=== PATIENT | female | born 1945 | race Caucasian/White ===

== ENCOUNTER → 2016-10-24 | Outpatient (CLI) | payer MEDICARE, BC ==
--- NOTE | 2016-10-25 10:21 | MM ---
Reason for exam: screening (asymptomatic). Last mammogram was performed 1 year and 8 months ago. History: Patient is postmenopausal and has history of breast cancer at age 59. Benign left mammotome panel of the left breast, April 03, 2011. Benign cyst aspiration of the left breast, February 2009. Mastectomy of the right breast, February 23, 2005. Benign left US cyst aspiration of the left breast, January 30, 2005. Excisional biopsy of the left breast, 1989. Took estrogen beginning at age 39. Physical Findings: A clinical breast exam by your physician is recommended on an annual basis and results should be correlated with mammographic findings. MG Screen [place] Unilateral W/Cad Bilateral CC and MLO view(s) were taken. Prior study comparison: October 29, 2012, left diagnostic mammogram w/CAD. The breast tissue is heterogeneously dense. This may lower the sensitivity of mammography. Previous mammotome biopsy within the left breast. Benign left axillary lymph nodes. There is no discrete abnormality. ASSESSMENT: Benign, BI-RAD 2 RECOMMENDATION: Follow-up diagnostic mammogram of the left breast in 1 year.
== END | disposition home or self-care (01) ==
LOC: RADMAMWWP 08:27
PROVIDERS: ATTEND Internal Medicine Geriatric Medicine
DX: Z12.31 Encounter for screening mammogram for malignant neoplasm of breast (principal)

== ENCOUNTER → 2016-12-27 | Outpatient (CLI) | payer MEDICARE, BC ==
--- NOTE | 2016-12-28 12:51 | CONS ---
DATE OF SERVICE: 12/27/2016 A 71-year-old lady who has been re-evaluated in the [facility] for obstructive sleep apnea and central sleep apnea-hypopnea syndrome. HISTORY OF PRESENT ILLNESS/SLEEP WAKE EVALUATION: Patient has history of obstructive sleep apnea for more than 10-years. Last titration done in 2007. At that time recommended pressure was 7 cm of water. So at that time patient continued to use equipment until now. Recently developed some problems related to dryness in the mouth while using her machine. She never had been followed up since starting treatment on CPAP in 2007, so I do not have information from her machine; however, her respiration was controlled. SLEEP SCHEDULE: Presently her sleep schedule is from around 10:30 p.m. until 7: 30 a.m. FALLING ASLEEP: She does have problem with falling asleep, sometimes taking temazepam at bedtime. No TV in bedroom. DURING SLEEP: She wakes up from sleep two times with nocturia. She wakes up with dry mouth, heartburn, restless leg symptoms. DURING THE DAY/WAKE STATE: In the morning she wakes up tired. [place] sleepiness scale is 2. PAST MEDICAL HISTORY: Positive for hyperlipidemia, depression. Right side breast CA status post mastectomy in 2004. Hyperlipidemia, status post left knee arthroscopic surgery, status post UPPP and tonsillectomy in 1998. MEDICATIONS: Simvastatin, Sertraline, temazepam, Gemfibrozil. SOCIAL HISTORY: Negative for smoking or using alcohol at the present time. FAMILY HISTORY: Heart problems, hyperlipidemia, snoring. REVIEW OF SYSTEMS: Awakenings from sleep. No fevers No double vision. No recent chest pain. No shortness of breath. No abdominal pain. No bleeding episodes. No blood in urine. No seizure episodes. PHYSICAL EXAMINATION: General: A lady without distress. VITAL SIGNS: BP 129/57, HR 84, RR 16, height 5 foot 1-1/2, weight 148, body mass index 27.7. Neck 14-1/4 inches in circumference. Temperature 98.0, oxygen saturation at room air 95%. HEENT: PERRLA, EOMI. Evaluation of oropharynx showed status post UPPP, short distance between soft palate and pharyngeal wall. NECK: Supple. No JVD. Thyroid is not palpable. LUNGS: Clear to percussion and to auscultation. Good air exchange. No wheezing or rhonchi. HEART: S1, S2 regular. No murmurs, gallops or rubs. ABDOMEN: Soft and nontender. Bowel sounds are present. No organomegaly appreciated. EXTREMITIES: No cyanosis or clubbing. DEPUTY CLERK OF SUPERIOR COURT: Awake, alert and oriented x3. Cranial nerves II through VII intact. There is no fasciculation or atrophy noted. No focal deficits observed. IMPRESSION: 1. Obstructive sleep apnea-hypopnea syndrome for many years. Last titration 8- years ago. Recently developed some problem with machine dryness in the mouth and awakening from sleep. 2. Hyperlipidemia. 3. Depression. 4. Difficulties to initiate sleep. PLAN: 1. I reviewed results of previous sleep study. It showed significant amount of central apneas 73 out of 88 total events. In that situation I would recommend to repeat CPAP titration. 2. Patient needs to get new CPAP equipment. 3. Sleep hygiene with regular time in bed for at least 8 hours. 4. No driving if feeling any sleepiness. Thank you very much for allowing me to participate in the management of your patient. Sincerely, Isidra Dejesus MD, PhD, FAASM Diplomat of [place] [employer], Sleep Medicine Board by [place] [employer] [place] [employer] Clerical Adviser of [facility]
== END | disposition home or self-care (01) ==
LOC: SLEEP 16:38
PROVIDERS: ATTEND Internal Medicine
DX: G47.33 Obstructive sleep apnea (adult) (pediatric) (principal); E78.5 Hyperlipidemia, unspecified; F32.9 Major depressive disorder, single episode, unspecified; Z79.899 Other long term (current) drug therapy
CPT/HCPCS: 99211

== ENCOUNTER → 2017-04-17 | Outpatient (CLI) | payer MEDICARE, BC ==
--- NOTE | 2017-04-17 16:15 | PN ---
PROGRESS NOTE DATE OF SERVICE: 04/17/2017 71-year-old lady who has been followed in Sleep Center for treatment of obstructive sleep apnea hypopnea syndrome. The patient continued to use her CPAP equipment but has significant leak from her mask. She recently received her new machine. I checked her CPAP unit. CPAP pressure is 7.6, usage is 23/30 nights for more than 4 hours. Average usage is 8.7 hours. Apnea-hypopnea index reading from the machine is 10.5. Refitted patient with a chinstrap. [place] Sleepiness Scale is 2. PHYSICAL EXAM: Patient in no distress. BP 139/74, HR 63, RR 14, weight 146.4, temperature 97.3, oxygen saturation room air 95%, oropharynx status post UPPP. No uvula. Neck Supple, no JVD. Thyroid is not palpable. LUNGS Clear to percussion and to auscultation. Good air exchange. No wheezing or rhonchi. HEART S1, S2 regular. No murmurs, gallops, or rubs. ABDOMEN Soft and nontender. Bowel sounds are present. No organomegaly appreciated. EXTREMITIES No clubbing or cyanosis. WOMEN'S STUDIES LECTURER Awake, alert, and oriented X3. Cranial nerves 2 to 7 intact. There is no fasciculation or atrophy. noted. No focal deficits observed. IMPRESSION: 1. Obstructive sleep apnea-hypopnea syndrome. Patient demonstrated good compliance with treatment benefitting from treatment. 2. Significant leak from the mask. 3. Depression. 4. Hyperlipidemia. 5. History of insomnia. PLAN: 1. Continue usage of CPAP equipment every night for the whole night. 2. Prescription for chin strap. 3. Sleep hygiene with regular time in bed for at least 8 hours. 4. No driving if feeling sleepiness. Thank you very much for allowing me to participate in management of your patient. Sincerely. Smith Dejesus MD, PhD, FAASM Diplomat of [place] [employer] [place] [employer] Statistical Programmer Analyst of [facility] [place] MMODL / CASTRON: [id number] /
== END | disposition home or self-care (01) ==
LOC: SLEEP 13:04
PROVIDERS: ATTEND Internal Medicine
DX: G47.33 Obstructive sleep apnea (adult) (pediatric) (principal); F32.9 Major depressive disorder, single episode, unspecified; E78.5 Hyperlipidemia, unspecified

== ENCOUNTER → 2017-08-08 | Outpatient (CLI) | payer MEDICARE, BC ==
--- NOTE | 2017-08-08 11:28 | SFUN ---
SLEEP STUDY FOLLOW UP NOTE DATE OF SERVICE: 08/08/2017. A 72-year-old lady has been followed in sleep center for treatment of central and obstructive sleep apnea-hypopnea syndrome. Patient continued to use her CPAP equipment, likes her mask at the present time and sleeps quite well. I checked her CPAP equipment. CPAP pressure 7.6 cm of water usage for more than 4 hours 17/ nights. Significant leak 73 L/minute. Apnea-hypopnea index 9.3 minutes with central events 2.4. [place] Sleepiness Scale is 1. MEDICATIONS: Medications the same, simvastatin, sertraline, temazepam, gemfibrozil, vitamins. PHYSICAL EXAM: During physical exam, patient in no distress. VITAL SIGNS: BP 139/63, HR 79, RR 18, height 5 feet 1-3/4 inches, weight 149.0, this is 3 pounds more than during the previous visit. Temperature 97.9. Oxygen saturation room air 98%. HEENT: PERRLA, EOMI. Oropharynx status post UPPP. No uvula. NECK: Supple, no JVD. Thyroid is not palpable. LUNGS: Clear to percussion and to auscultation. Good air exchange. No wheezing or rhonchi. HEART: S1, S2 regular. No murmurs, gallops, or rubs. ABDOMEN: Soft and nontender. Bowel sounds are present. No organomegaly appreciated. EXTREMITIES: No clubbing or cyanosis. CHIEF WELLNESS OFFICER: Awake, alert, and oriented X3. Cranial nerves 2 to 7 intact. There is no fasciculation or atrophy. noted. No focal deficits observed. IMPRESSION: 1. Obstructive sleep apnea-hypopnea syndrome. Patient continued to use CPAP equipment. Significant leak from the mask. Otherwise, patient benefitting from treatment. 2. Depression. 3. Hyperlipidemia. 4. History of insomnia. PLAN: 1. The patient will continue to use CPAP equipment with the same mask and chinstrap. 2. We will try to treat the patient with a different style of mask, possibly nasal pillows. 3. Sleep hygiene with regular time in bed for at least 8 hours. 4. No driving if feeling any sleepiness. Thank you very much for allowing me to participate in management of your patient. Sincerely, Smith Dejesus MD, PhD, FAASM Diplomat of [place] [employer] [place] [employer] Assistant Fitness Manager of [facility] [place] [email or web address] / NATY: [id number] /
== END | disposition home or self-care (01) ==
LOC: SLEEP 10:14
PROVIDERS: ATTEND Internal Medicine
DX: G47.33 Obstructive sleep apnea (adult) (pediatric) (principal); F32.9 Major depressive disorder, single episode, unspecified; E78.5 Hyperlipidemia, unspecified; Z87.09 Personal history of other diseases of the respiratory system; Z79.899 Other long term (current) drug therapy; Z99.89 Dependence on other enabling machines and devices

== ENCOUNTER 2017-10-18 16:40 | Emergency (ER) | payer MEDICARE, BC ==
[2017-10-18 16:45] VITALS: PULSE 56
[2017-10-18] MEDS ORDERED: HYDROcodone/APAP 5-325MG 1 EACH TAB PO STA (17:09)
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
--- NOTE | 2017-10-18 17:44 | XR ---
EXAMINATION TYPE: XR chest 2V DATE OF EXAM: 10/18/2017 COMPARISON: Chest x-ray May 12, 2016 HISTORY: Right-sided chest pain today after lifting injury. TECHNIQUE: Frontal and lateral views of the chest are obtained. FINDINGS: There is some chronic parenchymal change without suspicious new focal air space opacity, p leural effusion, or pneumothorax seen. The cardiac silhouette size is upper limits of normal with ec tatic thoracic aorta. Retrocardiac opacity consistent with large hiatal hernia or intrathoracic stom ach is redemonstrated with air-fluid level . The osseous structures are demineralized. IMPRESSION: Chronic changes without acute pulmonary process.
[2017-10-18 18:14] VITALS: BP 120/53; RESP 18; TEMP 98.5
== END 2017-10-18 18:12 | disposition home or self-care (01) ==
LOC: EC 16:40
DX: S29.9XXA Unspecified injury of thorax, initial encounter (principal); E78.5 Hyperlipidemia, unspecified; E07.9 Disorder of thyroid, unspecified; F41.9 Anxiety disorder, unspecified; Z87.891 Personal history of nicotine dependence; Z79.51 Long term (current) use of inhaled steroids; Z79.899 Other long term (current) drug therapy; Z91.040 Latex allergy status; Z85.3 Personal history of malignant neoplasm of breast; Z90.11 Acquired absence of right breast and nipple; Z87.19 Personal history of other diseases of the digestive system; Z87.09 Personal history of other diseases of the respiratory system; Z82.49 Family history of ischemic heart disease and other diseases of the circulatory system; X50.0XXA Overexertion from strenuous movement or load, initial encounter; Y93.89 Activity, other specified; Y92.89 Other specified places as the place of occurrence of the external cause
CPT/HCPCS: 71046; 99284

== ENCOUNTER 2018-07-13 18:50 | Observation (INO) | payer MEDICARE, BC ==
[2018-07-13] MEDS ORDERED: ASPIRIN 81 MG PO STA (19:09)
--- NOTE | 2018-07-13 19:29 | XR ---
EXAMINATION TYPE: XR chest 2V DATE OF EXAM: 07/13/2018 COMPARISON: 10/18/2017 INDICATION: Chest pain TECHNIQUE: Frontal and lateral views of the chest are obtained. FINDINGS: The heart size is normal. The pulmonary vasculature is normal. The lungs are clear. There is a large hiatal hernia with an air-fluid level present previously. IMPRESSION: 1. No acute pulmonary process. 2. Large hiatal hernia.
[2018-07-13 19:30] LABS: Basophils % (A) 0 %; Eosinophils # (A) 0.3 k/uL (0-0.7); Eosinophils % (A) 3 %; HCT 42.5 % (34.0-46.0); HGB 13.8 gm/dL (11.4-16.0); Lymphocytes # (A) 1.4 k/uL (1.0-4.8); Lymphocytes % (A) 17 %; MCH 29.1 pg (25.0-35.0); MCHC 32.6 g/dL (31.0-37.0); MCV 89.5 fL (80.0-100.0); Mean Platelet Volume 7.8; Monocytes # (A) 0.4 k/uL (0-1.0); Monocytes % (A) 5 %; Neutrophils % (A) 72 %; Platelet Count 284 k/uL (150-450); RBC 4.75 m/uL (3.80-5.40); RDW 12.8 % (11.5-15.5); WBC 8.3 k/uL (3.8-10.6)
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
[2018-07-13 19:41] LABS: Amylase 83 U/L (30-110); Lipase 409 U/L (23-300)
[2018-07-13 19:43] LABS: ALT 28 U/L (9-52); AST 25 U/L (14-36); Albumin 4.4 g/dL (3.5-5.0); Alkaline Phosphatase 137 U/L (38-126); Anion Gap 13 mmol/L; Blood Urea Nitrogen 27 mg/dL (7-17); Calcium 10.5 mg/dL (8.4-10.2); Carbon Dioxide 24 mmol/L (22-30); Chloride 109 mmol/L (98-107); Glucose 149 mg/dL (74-99); Magnesium 1.9 mg/dL (1.6-2.3); Potassium 4.2 mmol/L (3.5-5.1); Sodium 146 mmol/L (137-145); Total Bilirubin 0.6 mg/dL (0.2-1.3); Total Protein 7.6 g/dL (6.3-8.2)
[2018-07-13 19:47] LABS: INR 0.9 (<1.2); Prothrombin Time 9.5 sec (9.0-12.0)
[2018-07-13 19:55] LABS: Partial Thromboplastin Time 21.6 sec (22.0-30.0)
[2018-07-13] MEDS ORDERED: MORPHINE SULFATE 4 MG/ML SYRINGE IV PRN (20:37)
[2018-07-13] MEDS ORDERED: NALOXONE 0.4 MG/ML 1 ML VIAL IV PRN (20:37)
[2018-07-13] MEDS ORDERED: ONDANSETRON 4 MG/2 ML VIAL IVP PRN (20:37)
[2018-07-13 22:05] VITALS: BMI 24.9
[2018-07-13] MEDS ORDERED: TEMAZEPAM 15 MG CAP PO PRN (23:54)
[2018-07-13] MEDS ORDERED: MAG HYDROX/AL HYDROX/SIMETH 30 ML CUP PO PRN (23:55)
[2018-07-14 00:45] VITALS: RESP 18
[2018-07-14] MEDS ORDERED: REGADENOSON 0.4 MG/5 ML SYRINGE IV ONE (09:12)
[2018-07-14] MEDS ORDERED: CAFFEINE CITRATE 60 MG/3 ML VIAL IV PRN (09:12)
[2018-07-14 11:25] LABS: Cholesterol 155 mg/dL (<200); HDL Cholesterol 44 mg/dL (40-60); LDL Cholesterol,Calculated 91 mg/dL (0-99); Triglycerides 101 mg/dL (<150)
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
[2018-07-14] MEDS ORDERED: SERTRALINE 100 MG TAB PO SCH ×2 (12:00)
[2018-07-14] MEDS ORDERED: METHIMAZOLE 5 MG TAB PO SCH (12:00)
[2018-07-14] MEDS ORDERED: HYDROCHLOROTHIAZIDE 25 MG TAB PO SCH (12:15)
--- NOTE | 2018-07-14 12:43 | ECHOF ---
Referral Reason:cp MEASUREMENTS -------- HEIGHT: 165.1 cm WEIGHT: 68.0 kg BP: IVSd: 1.4 cm (0.6 - 1.1) LVIDd: 5.0 cm (3.9 - 5.3) LVPWd: 1.1 cm (0.6 - 1.1) IVSs: 1.5 cm LVIDs: 3.9 cm LVPWs: 1.6 cm LAESV Index (A-L): 26.13 ml/m Ao Diam: 3.4 cm (2.0 - 3.7) MV EXCURSION: 15.119 mm (> 18.000) MV EF SLOPE: 40 mm/s (70 - 150) EPSS: 1.7 cm MV E Sotero: 0.93 m/s MV DecT: 236 ms MV A Sotero: 0.33 m/s MV E/A Ratio: 2.77 AR PHT: 507 ms FINDINGS -------- Undetermined rhythm. This was a techncally difficult study with suboptimal views, , Lumason utilized for enhancement of im ages. The left ventricular size is normal. There is mild concentric left ventricular hypertrophy. Overa ll left ventricular systolic function is mild-moderately impaired with, an EF between 40 - 45 %. The right ventricle is normal in size. The left atrial size is normal. The right atrial size is normal. 5.0mg OF Lumason UTLIZED: 2 OR MORE WALL SEGMENTS NOT VISUALIZED. There is mild aortic regurgitation. Mild mitral annular calcification present. Mild mitral regurgitation is present. No regurgitation noted There is no evidence of pulmonary hypertension. Unable to estimate RVSP du e to inadequate TR jet spectral doppler profile. The pulmonic valve was not well visualized. The aortic root size is normal. There is no pericardial effusion. CONCLUSIONS -------- 1. This was a techncally difficult study with suboptimal views, , Lumason utilized for enhancement of images. 2. The left ventricular size is normal. 3. There is mild concentric left ventricular hypertrophy. 4. Overall left ventricular systolic function is mild-moderately impaired with, an EF between 40 - 45 %. 5. The right ventricle is normal in size. 6. The left atrial size is normal. 7. The right atrial size is normal. 8. 5.0mg OF Lumason UTLIZED: 2 OR MORE WALL SEGMENTS NOT VISUALIZED. 9. There is mild aortic regurgitation. 10. Mild mitral annular calcification present. 11. Mild mitral regurgitation is present. 12. No regurgitation noted 13. There is no evidence of pulmonary hypertension. 14. Unable to estimate RVSP due to inadequate TR jet spectral doppler profile. 15. The pulmonic valve was not well visualized. 16. The aortic root size is normal. 17. There is no pericardial effusion. WATER OPERATOR: Lexii Christopher RDCS
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
[2018-07-14 13:07] VITALS: TEMP 97.7
[2018-07-14 13:19] LABS: ALT 29 U/L (9-52); AST 21 U/L (14-36); Albumin 3.4 g/dL (3.5-5.0); Alkaline Phosphatase 98 U/L (38-126); Amylase 53 U/L (30-110); Anion Gap 10 mmol/L; Blood Urea Nitrogen 23 mg/dL (7-17); Calcium 9.4 mg/dL (8.4-10.2); Carbon Dioxide 22 mmol/L (22-30); Chloride 112 mmol/L (98-107); Glucose 107 mg/dL (74-99); Lipase 188 U/L (23-300); Potassium 4.2 mmol/L (3.5-5.1); Sodium 144 mmol/L (137-145); Total Bilirubin 0.4 mg/dL (0.2-1.3); Total Protein 6.2 g/dL (6.3-8.2)
--- NOTE | 2018-07-14 13:33 | EST ---
EXERCISE STRESS DATE OF SERVICE: 07/14/2018 AGE: 73 SEX: Female HT: 5'5" WT: 150 pounds PROTOCOL: Lexiscan Cardiolite STAGE: DURATION OF EXERCISE: HEART RATE REST: 59 BLOOD PRESSURE REST: 116/67 MAXIMUM HEART RATE ACHIEVED: 84 MAXIMUM BLOOD PRESSURE: 126/65 85% MPHR: 100% MPHR: METS: INDICATIONS: Chest pain. CLINICAL INFORMATION: STRESS DATA: Pretesting physical examination showed a heart rate of 59, pressure is 116/67 mmHg. Baseline EKG showed sinus mechanism. The 0.4 mg of Lexiscan given over 15 seconds per protocol. Max heart rate was 84 beats per minute and maximum pressure was 126/65 mmHg. Clinically the patient did not have any symptoms and the EKG did not show any significant ST or T wave abnormalities concerning for ischemia. CONCLUSION: 1. Nondiagnostic electrocardiogram stress testing in response to Lexiscan. 2. Please follow up on the Cardiolite portion on separate report. MMODL / IJN: [id number] /
--- NOTE | 2018-07-14 14:22 | NM ---
EXAMINATION TYPE: NM stress lexiscan cardiolite DATE OF EXAM: 07/14/2018 COMPARISON: NONE HISTORY: Chest pain TECHNIQUE: After the intravenous administration of 10.05 mCi Tc 99m Sestamibi - Cardiolite resting S PECT images acquired 45 minutes post injection. The patient received 0.4mg Lexiscan, 25.7 mCi Tc 99m Sestamibi - Stress images obtained [address] injection FINDINGS: Review of stress and rest SPECT images demonstrates no distinct perfusion abnormality. Gated analysi s shows normal wall motion with an estimated left ventricular ejection fraction of 40 %. IMPRESSION: No scintigraphic evidence for reversible ischemia. Note is made the ejection fraction is 40%.
[2018-07-14 15:39] VITALS: BP 115/71; PULSE 65
[2018-07-14] MEDS ORDERED: FENOFIBRATE 160 MG TAB PO SCH (17:30)
[2018-07-14 19:12] LABS: T4, Free (Free Thyroxine) 2.51 ng/dL (0.78-2.19)
[2018-07-14] MEDS ORDERED: ATORVASTATIN 20 MG TAB PO SCH (21:00)
[2018-07-15] MEDS ORDERED: FAMOTIDINE 20 MG TAB PO SCH (09:00)
[2018-07-15] MEDS ORDERED: LISINOPRIL 2.5 MG TAB PO SCH (09:00)
--- NOTE | 2018-07-15 12:47 | P.DS ---
Providers Date of admission: 07/13/18 20:43 Expected date of discharge: 07/14/18 Attending physician: James Skinner Consults: 07/13/18 20:38 Consult Physician Routine Consulting Provider: [facility] Consult Reason/Comments: Chest Pain Do you want consulting provider notified?: Yes Primary care physician: [facility] Course: 73-year-old female one of my office patient of known for long time with history of breast cancer post right sided mastectomy who is known to have history of hyperglycemia and hypothyroidism. Patient has not been feeling well has been under a lot of stress lately. She presented to the emergency department at [facility] complaining of midsternal chest pain radiating toward the left side with mild palpitation cold sweat with no lightheadedness or dizziness. Patient not chest pain did not get relieved with moving walking or drinking water or taking antiacid. When she made it to [facility] apartment and uses nitroglycerin had help to subside her pain at the time. Arthur workup in the emergency room showed frequent PVCs on EKG with mild left ventricular hypertrophy with nonspecific ST-T wave abnormality. Laboratory value showed normal troponin at the time with patient's current symptom and risk factor patient was admitted to the hospital will do CK with troponin 3 consult cardiology will be going for further testing including stress test and echocardiogram if she passed them she'll be discharged home if not she might need a heart cath. 07/14: Patient has been seen by cardiology and Lexiscan stress test ordered and showed no reversible ischemia. EF 40%. Echocardiogram reveals EF of 40-45%, mild concentric left ventricular hypertrophy, mild mitral regurgitation, no pulmonary hypertension. Patient was cleared for discharge by cardiology. TSH 11.3, free T4 2 0.51. Repeat lipase 188. Patient was scheduled for outpatient liver ultrasound. Discharge diagnoses: 1 Chest pain, acute coronary syndrome ruled out 2 hypertension 3 hyperlipidemia 4 hyperthyroidism 5 recurrent depression 6 history of breast cancer 7 history of reactive airway 8 GERD 9 hypercalcemia: With mild hyperparathyroidism 10 hyperglycemia: Still on diet control diabetes mellitus type 2 11 significantly elevated lipase with no sign and symptom of pancreatitis Discharge plan: Home Impression and plan of care have been directed as dictated by the signing physician. Alee Wang nurse practitioner acting as scribe for signing physician. Patient Condition at Discharge: Good Plan - Discharge Summary New Discharge Prescriptions: New Lisinopril [Zestril] 2.5 mg PO DAILY #30 tab Continue Temazepam [Restoril] 15 mg PO HS PRN PRN Reason: Insomnia Simvastatin [Zocor] 40 mg PO HS Multivitamins, Thera [Multivitamin (formulary)] 1 tab PO DAILY Gemfibrozil [Lopid] 600 mg PO AC-BID Methimazole [Tapazole] 5 mg PO DAILY Sertraline [Zoloft] 200 mg PO DAILY Hydrochlorothiazide [Hydrodiuril] 25 mg PO DAILY Sertraline [Zoloft] 100 mg PO DAILY Discharge Medication List Gemfibrozil [Lopid] 600 mg PO AC-BID 05/07/16 [History] Multivitamins, Thera [Multivitamin (formulary)] 1 tab PO DAILY 05/07/16 [History] Simvastatin [Zocor] 40 mg PO HS 05/07/16 [History] Temazepam [Restoril] 15 mg PO HS PRN 05/07/16 [History] Hydrochlorothiazide [Hydrodiuril] 25 mg PO DAILY 10/18/17 [History] Methimazole [Tapazole] 5 mg PO DAILY 10/18/17 [History] Sertraline [Zoloft] 200 mg PO DAILY 10/18/17 [History] Sertraline [Zoloft] 100 mg PO DAILY 07/13/18 [History] Lisinopril [Zestril] 2.5 mg PO DAILY #30 tab 07/14/18 [Rx] Follow up Appointment(s)/Referral(s): Umer Barraza MD [STAFF PHYSICIAN] - 07/29/18 9:45 am () Arvin Nelson MD [Primary Care Provider] - 1 Week (office was closed, please make a follow up appointment after ultrasound of liver is done. ) Activity/Diet/Wound Care/Special Instructions: liver ultrasound has been scheduled for 07/16/18 at 12:20 . nothing to eat or drink after midnight on the , until after your ultrasound. Discharge Disposition: HOME SELF-CARE
== END 2018-07-14 16:53 | disposition home or self-care (01) ==
LOC: EC 18:50 → 1SOBS 20:43
PROVIDERS: ADMIT Internal Medicine; ATTEND Internal Medicine
DX: R07.89 Other chest pain (principal); I11.0 Hypertensive heart disease with heart failure; I50.9 Heart failure, unspecified; E78.5 Hyperlipidemia, unspecified; R74.8 Abnormal levels of other serum enzymes; I49.3 Ventricular premature depolarization; I49.1 Atrial premature depolarization; M19.90 Unspecified osteoarthritis, unspecified site; I35.2 Nonrheumatic aortic (valve) stenosis with insufficiency; E05.90 Thyrotoxicosis, unspecified without thyrotoxic crisis or storm; E21.3 Hyperparathyroidism, unspecified; J45.909 Unspecified asthma, uncomplicated; K44.9 Diaphragmatic hernia without obstruction or gangrene; K57.90 Diverticulosis of intestine, part unspecified, without perforation or abscess without bleeding; N39.3 Stress incontinence (female) (male); F41.9 Anxiety disorder, unspecified; F33.9 Major depressive disorder, recurrent, unspecified; G47.33 Obstructive sleep apnea (adult) (pediatric); K21.9 Gastro-esophageal reflux disease without esophagitis; R73.9 Hyperglycemia, unspecified; Z79.899 Other long term (current) drug therapy; Z88.1 Allergy status to other antibiotic agents; Z91.040 Latex allergy status; Z87.442 Personal history of urinary calculi; Z90.49 Acquired absence of other specified parts of digestive tract; Z90.710 Acquired absence of both cervix and uterus; Z90.11 Acquired absence of right breast and nipple; Z87.09 Personal history of other diseases of the respiratory system; Z87.891 Personal history of nicotine dependence; Z85.3 Personal history of malignant neoplasm of breast; Z82.49 Family history of ischemic heart disease and other diseases of the circulatory system
CPT/HCPCS: 36415; 71046; 78452; 80053; 80061; 82150; 83690; 83735; 84439; 84443; 84484; 85025; 85610; 85730; 93005; 93017; 93306; 96374; 96375; 99285

== ENCOUNTER → 2018-07-16 | Outpatient (CLI) | payer MEDICARE, BC ==
--- NOTE | 2018-07-16 12:53 | US ---
EXAMINATION TYPE: US abdomen limited DATE OF EXAM: 07/16/2018 COMPARISON: NONE CLINICAL HISTORY: K85.1 pancreatitis. abd pain, recent hospital stay EXAM MEASUREMENTS: Liver Length: 13.65 cm Gallbladder Wall: Surgically absent CBD: 0.6 cm Right Kidney: 10.4 x 5.2 x 4.7 cm Pancreas: Limited by bowel gas Liver: wnl Gallbladder: Surgically absent Evidence for sonographic Valladares's sign: no CBD: wnl Right Kidney: cystic lesions seen, largest = 2.5 x 2.2 x 2.1cm IMPRESSION: 1. Simple appearing right renal cysts. 2. Postcholecystectomy.
== END | disposition home or self-care (01) ==
LOC: RADUSWWP 12:08
PROVIDERS: ATTEND Internal Medicine Geriatric Medicine
DX: N28.1 Cyst of kidney, acquired (principal); Z90.49 Acquired absence of other specified parts of digestive tract
CPT/HCPCS: 76705

== ENCOUNTER 2019-10-24 20:23 | Inpatient (IN) | payer MEDICARE, BC ==
[2019-10-24] MEDS ORDERED: ALBUTEROL NEBULIZED 2.5 MG/3 ML INHALATION STA (20:33)
[2019-10-24] MEDS ORDERED: IPRATROPIUM 0.5 MG/2.5 ML NEBU INHALATION STA (20:33)
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
[2019-10-24 21:04] LABS: Basophils % (A) 0 %; Eosinophils # (A) 0.2 k/uL (0-0.7); Eosinophils % (A) 1 %; HCT 45.9 % (34.0-46.0); HGB 14.3 gm/dL (11.4-16.0); Hypochromasia Marked; Lymphocytes # (A) 1.4 k/uL (1.0-4.8); Lymphocytes % (A) 10 %; MCH 29.2 pg (25.0-35.0); MCHC 31.1 g/dL (31.0-37.0); Mean Platelet Volume 10.8; Monocytes # (A) 0.6 k/uL (0-1.0); Monocytes % (A) 5 %; Neutrophils # (A) 11.2 k/uL (1.3-7.7); Neutrophils % (A) 82 %; Platelet Count 372 k/uL (150-450); RBC 4.88 m/uL (3.80-5.40); RDW 13.7 % (11.5-15.5); WBC 13.6 k/uL (3.8-10.6)
--- NOTE | 2019-10-24 21:07 | XR ---
EXAMINATION TYPE: XR chest 2V DATE OF EXAM: 10/24/2019 COMPARISON: 07/13/2018 HISTORY: Chest pain TECHNIQUE: 2 views FINDINGS: There is pulmonary vascular congestion. There is blunting of the costophrenic angles. There is fluid in the major fissures. There is moderate-sized hiatal hernia. Bony thorax is intact IMPRESSION: Congestive heart failure with pleural fluid that appears new compared to old exam. Large hiatal hernia unchanged.
[2019-10-24 21:09] LABS: INR 1.2 (<1.2); Prothrombin Time 12.2 sec (9.0-12.0)
[2019-10-24 21:13] LABS: Albumin 4.3 g/dL (3.5-5.0); Calcium 9.7 mg/dL (8.4-10.2); Potassium 3.7 mmol/L (3.5-5.1); Total Bilirubin 0.8 mg/dL (0.2-1.3); Total Protein 7.6 g/dL (6.3-8.2)
--- NOTE | 2019-10-24 22:08 | CT ---
EXAMINATION TYPE: CT abdomen pelvis wo con DATE OF EXAM: 10/24/2019 COMPARISON: 05/07/2016 HISTORY: abdominal pain CT DLP: 512.1 mGycm Automated exposure control for dose reduction was used. Multiple axial sections were obtained from the diaphragm to the floor the pelvis without contrast. There are bilateral pleural effusions. Heart is enlarged. There is some infiltrate and atelectasis at both lung bases. Liver shows no focal defect. Spleen is intact. There is no pancreatic mass. Stomach is intact. Gallbl adder appears absent. There is some mesenteric edema and FAT stranding. There is mild abdominal ascit es. There is no adrenal mass. Kidneys show no hydronephrosis. There is 3 cm cortical cyst lateral right k idney. Cyst slightly increased compared to old exam. There is no retroperitoneal adenopathy. There is no hydronephrosis. Ureters are not dilated. Bladder distends smoothly. There is no inguinal hernia. There are a few sigmoid diverticula. There is no sign of diverticulitis. Lumbar vertebra have normal alignment. Posterior elements are intact. There is no compression fractur e. The bony pelvis appears intact. I see no bony destructive process. Appendix is not seen. There is no sign of thickened appendix. IMPRESSION: Moderate cardiomegaly. Bilateral moderate pleural effusions with basilar pulmonary infiltrates and at electasis. Abdominal ascites. This could relate to chronic congestive heart failure. Ascites and pleu ral fluid are new compared to old exam.
[2019-10-24] MEDS ORDERED: MORPHINE SULFATE 4 MG/ML SYRINGE IVP PRN (22:11)
[2019-10-24] MEDS ORDERED: MORPHINE SULFATE 4 MG/ML SYRINGE IVP STA (22:11)
[2019-10-24] MEDS ORDERED: AZITHROMYCIN 500 MG in SODIUM CHLORIDE 0.9% 250 ML IVPB STA (22:22)
[2019-10-25] MEDS: FUROSEMIDE 10 MG/ML 4 ML VIAL IV SCH ×3 (00:10→21:38)
[2019-10-25] MEDS ORDERED: BACLOFEN 10 MG TAB PO PRN (09:04)
[2019-10-25] MEDS ORDERED: ONDANSETRON 4 MG/2 ML VIAL IVP PRN (09:04)
[2019-10-25] MEDS ORDERED: SODIUM CHLORIDE 0.9% 1,000 ML IV SCH (09:15)
[2019-10-25] MEDS: PANTOPRAZOLE 40 MG/10 ML VIAL IVP SCH ×2 (09:45→21:37)
[2019-10-25 10:24] LABS: Calcium 9.4 mg/dL (8.4-10.2); Potassium 4.9 mmol/L (3.5-5.1)
[2019-10-25] MEDS: APIXABAN 5 MG TAB PO SCH ×2 (11:22→21:37)
[2019-10-25] MEDS: METHIMAZOLE 5 MG TAB PO SCH (11:22)
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
[2019-10-25 12:55] LABS: Glucose,Whole Blood 119 mg/dL (75-99)
[2019-10-25] MEDS: INSULIN ASPART (NovoLOG) 100 UNIT/ML VIAL SQ SCH ×3 (13:01→21:38)
[2019-10-25 13:08] LABS: Amorphous Sediment,Urine Rare /hpf; Appearance,Urine Cloudy (Clear); Bilirubin,Urine Negative (Negative); Blood,Urine Negative (Negative); Color,Urine Yellow; Glucose,Urine (UA) Negative (Negative); Hyaline Casts,Urine 138 /lpf (0-2); Ketones,Urine Negative (Negative); Leukocyte Esterase,Urine Negative (Negative); Mucus,Urine Occasional /hpf; Nitrite,Urine Negative (Negative); PH, Urine 5.5 (5.0-8.0); Protein,Urine 1+ (Negative); Specific Gravity,Urine 1.016 (1.001-1.035); Squamous Epithelial Cell,Urine <1 /hpf (0-4); Urobilinogen,Urine <2.0 mg/dL (<2.0); WBC,Urine 3 /hpf (0-5)
[2019-10-25 13:23] LABS: LDH 762 U/L (313-618)
--- NOTE | 2019-10-25 14:46 | NM ---
EXAMINATION TYPE: NM pul vent and perfuse DATE OF EXAM: 10/25/2019 COMPARISON: NONE HISTORY: Difficulty in breathing elevated d-dimer TECHNIQUE: Utilizing inhalation of 38.3 mCi Tc 99m DTPA aerosol and intravenous injection of 4.6 mCi of Tc 99m MAA, ventilation and perfusion images are acquired post injection in multiple projections. FINDINGS: There appears to be matched ventilation and perfusion. No moderate or large mismatched defects are ev ident. There is some mild central deposition of radiotracer on ventilation suggestive for some emphys ematous change. This will limit interpretation. Exam is compared with the chest x-ray of 10/24/2019. There is a left pleural effusion. There is a match ed ventilation/perfusion defects in the left base. This is at the low end of intermediate probability for pulmonary embolism, approximately 22%, based on PIOPED 2 criteria. IMPRESSION: Low end of intermediate probability for pulmonary embolism.
[2019-10-25] MEDS: SODIUM CHLORIDE IV SCH ×2 (14:47)
[2019-10-25] MEDS: SOD BICARB IV SCH ×2 (14:47)
[2019-10-25] MEDS: METOPROLOL TARTRATE 25 MG TAB PO SCH ×2 (14:48→21:37)
[2019-10-25] MEDS: SERTRALINE 50 MG TAB PO SCH (16:22)
[2019-10-25] MEDS: MULTIVITAMINS, THERA 1 EACH TAB PO SCH (16:22)
[2019-10-25] MEDS: ASPIRIN 81 MG PO SCH (16:22)
[2019-10-25 16:56] LABS: Glucose,Whole Blood 115 mg/dL (75-99)
[2019-10-25 20:56] LABS: Glucose,Whole Blood 145 mg/dL (75-99)
[2019-10-25] MEDS ORDERED: AZITHROMYCIN 500 MG in SODIUM CHLORIDE 0.9% 250 ML IVPB SCH (21:00)
[2019-10-25] MEDS: ATORVASTATIN 20 MG TAB PO SCH (21:37)
[2019-10-25] MEDS: AZITHROMYCIN 500 MG TAB PO SCH (21:37)
[2019-10-25] MEDS: GABAPENTIN 300 MG CAP PO SCH (21:37)
[2019-10-26] MEDS: SOD BICARB IV SCH ×2 (02:06)
[2019-10-26] MEDS: SODIUM CHLORIDE IV SCH ×2 (02:06)
[2019-10-26 05:58] LABS: Glucose,Whole Blood 108 mg/dL (75-99)
[2019-10-26] MEDS: INSULIN ASPART (NovoLOG) 100 UNIT/ML VIAL SQ SCH ×4 (06:47→20:31)
[2019-10-26 07:38] LABS: Calcium 8.9 mg/dL (8.4-10.2); Potassium 4.7 mmol/L (3.5-5.1)
[2019-10-26] MEDS ORDERED: FUROSEMIDE 20 MG TAB PO SCH (09:00)
[2019-10-26] MEDS ORDERED: FUROSEMIDE 10 MG/ML 10 ML VIAL IV STA (10:04)
--- NOTE | 2019-10-26 10:13 | P.PN ---
Subjective Patient is seen in follow-up for acute kidney injury. Renal function is worse. Urine output 75 mL overnight. She has a Silveira catheter. She is maintained on IV fluids and also received a dose of Lasix last night. Does have edema in lower extremities. Denies abdominal discomfort at this time. Vital signs are stable. General: The patient appeared well nourished and normally developed. HEENT: Head exam is unremarkable. Neck is without jugular venous distension. LUNGS: Lungs are clear to auscultation and percussion. Breath sounds decreased. HEART: Rate and Rhythm are regular. First and second heart sounds normal. No murmurs, rubs or gallops. ABDOMEN: Soft, mild tenderness to palpation. EXTREMITITES: 1+ edema. Objective - Vital Signs Vital signs: Vital Signs Temp 98.3 F 10/26/19 04:00 Pulse 88 10/26/19 04:00 Resp 18 10/26/19 04:00 BP 105/69 10/26/19 04:00 Pulse Ox 94 L 10/26/19 04:00 Intake & Output 10/25/19 10/26/19 10/26/19 18:59 06:59 18:59 Intake Total 400 1150 Output Total 260 50 Balance 140 1100 Weight 67 kg 78 kg Intake: IV 400 Sodium Chloride 0.9% 1, 400 000 ml @ 50 mls/hr IV . Q20H MIRNA Rx#:[id number] Intake, IV Titration 1050 Amount Sodium Chloride 0.45% 1, 1000 000 ml @ 100 mls/hr IV . Q11H MIRNA with Sod Bicarb Syr 8.4% (1 Meq/ml) 100 ml Rx#:[id number] cefTRIAXone 1 gm In 50 Sodium Chloride 0.9% 50 ml @ 100 mls/hr IVPB Q24H MIRNA Rx#:[id number] Oral 100 Output: Urine 260 50 - Labs CBC & Chem 7: 10/24/19 20:47 10/26/19 05:39 Labs: Abnormal Lab Results - Last 24 Hours (Table) 10/25/19 10/25/19 10/25/19 Range/Units 08:33 12:34 12:36 Chloride 112 H (98-107) mmol/L Carbon Dioxide 9 L* (22-30) mmol/L BUN 27 H (7-17) mg/dL Creatinine 1.29 H (0.52-1.04) mg/dL Glucose 171 H (74-99) mg/dL POC Glucose (mg/dL) 119 H (75-99) mg/dL Osmolality 305 H (280-301) mosm/kg Lactate Dehydrogenase 762 H (313-618) U/L Urine Appearance (Clear) Urine Protein (Negative) Amorphous Sediment (None) /hpf Hyaline Casts (0-2) /lpf Urine Mucus (None) /hpf 10/25/19 10/25/19 10/25/19 Range/Units 12:40 16:54 20:55 Chloride (98-107) mmol/L Carbon Dioxide (22-30) mmol/L BUN (7-17) mg/dL Creatinine (0.52-1.04) mg/dL Glucose (74-99) mg/dL POC Glucose (mg/dL) 115 H 145 H (75-99) mg/dL Osmolality (280-301) mosm/kg Lactate Dehydrogenase (313-618) U/L Urine Appearance Cloudy H (Clear) Urine Protein 1+ H (Negative) Amorphous Sediment Rare H (None) /hpf Hyaline Casts 138 H (0-2) /lpf Urine Mucus Occasional H (None) /hpf 10/26/19 10/26/19 Range/Units 05:39 05:57 Chloride (98-107) mmol/L Carbon Dioxide 17 L (22-30) mmol/L BUN 48 H (7-17) mg/dL Creatinine 2.20 H (0.52-1.04) mg/dL Glucose (74-99) mg/dL POC Glucose (mg/dL) 108 H (75-99) mg/dL Osmolality (280-301) mosm/kg Lactate Dehydrogenase (313-618) U/L Urine Appearance (Clear) Urine Protein (Negative) Amorphous Sediment (None) /hpf Hyaline Casts (0-2) /lpf Urine Mucus (None) /hpf Assessment and Plan Plan: Assessment: 1. Acute kidney injury secondary to ATN. ?cardiorenal. Creatinine 2.2 today. No hydronephrosis noted on CAT scan. Creatinine was 0.74 in June 2018. 2. Volume overload. 3. Metabolic acidosis secondary to acute kidney injury, NS, and lactic acidosis. 4. Possible ischemic bowel. Surgery consulted. LDH mildly elevated. Plan: Hep-Lock IV fluids. Add oral sodium bicarbonate. Lasix 80 mg IV once today. Check chest x-ray. Follow-up echocardiogram. Continue to monitor renal function and urine output. Continue to assess daily for need for renal replacement therapy.
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
--- NOTE | 2019-10-26 10:35 | P.PN ---
Subjective Progress Note Date: 10/26/19 This is a pleasant 74-year-old female with a history of hypertension, obstructive sleep apnea, dyslipidemia, breast cancer, CHF and atrial fibrillation who presented with complaints of nausea and vomiting. Patient remains quite drowsy and is a poor historian. HPI and history were obtained mostly from the chart. Chest x-ray on admission did show pulmonary vascular congestion with a large hiatal hernia. EKG showed atrial fibrillation with left bundle branch block. CT of the abdomen and pelvis showed moderate bilateral pleural effusions with bibasilar pulmonary infiltrates and atelectasis, abdomina l ascites. NT proBNP is elevated at 19,000. She's been on IV Lasix 40 mg by mouth every 8 hours. Labs this morning show significant increase in her BUN and creatinine which yesterday were 27 and 1.29 and this morning were 48 and 2.2. At the time of my examination, patient is resting comfortably in bed. Again she is quite drowsy. She does deny complaints of nausea or vomiting. Has no complaints of shortness of breath. Her only complaint at this time is of feeling tired. Objective - Vital Signs Vital signs: Vital Signs Temp 98.3 F 10/26/19 04:00 Pulse 88 10/26/19 04:00 Resp 18 10/26/19 04:00 BP 105/69 10/26/19 04:00 Pulse Ox 94 L 10/26/19 04:00 Intake & Output 10/25/19 10/26/19 10/26/19 18:59 06:59 18:59 Intake Total 400 1150 Output Total 260 50 Balance 140 1100 Weight 67 kg 78 kg Intake: IV 400 Sodium Chloride 0.9% 1, 400 000 ml @ 50 mls/hr IV . Q20H MIRNA Rx#:[id number] Intake, IV Titration 1050 Amount Sodium Chloride 0.45% 1, 1000 000 ml @ 100 mls/hr IV . Q11H MIRNA with Sod Bicarb Syr 8.4% (1 Meq/ml) 100 ml Rx#:[id number] cefTRIAXone 1 gm In 50 Sodium Chloride 0.9% 50 ml @ 100 mls/hr IVPB Q24H MIRNA Rx#:[id number] Oral 100 Output: Urine 260 50 - Exam PHYSICAL EXAMINATION: HEENT: Head is atraumatic, normocephalic. Pupils equal, round. Neck is supple. There is no elevated jugular venous pressure. HEART EXAMINATION: Heart sounds irregularly irregular, S1 and S2 with a systolic murmur CHEST EXAMINATION: Lungs reveal diminished air entry bilateral bases faint crackles at the right base. No chest wall tenderness is noted on palpation or with deep breathing. ABDOMEN: Soft, nontender, mildly distended. Bowel sounds are heard. No organomegaly noted. EXTREMITIES: 2+ peripheral pulses with evidence of trace to mild peripheral edema and no calf tenderness noted. NEUROLOGIC patient is drowsy but arousable and oriented x2 . - Labs CBC & Chem 7: 10/24/19 20:47 10/26/19 05:39 Labs: Abnormal Lab Results - Last 24 Hours (Table) 10/25/19 10/25/19 10/25/19 Range/Units 08:33 12:34 12:36 Chloride 112 H (98-107) mmol/L Carbon Dioxide 9 L* (22-30) mmol/L BUN 27 H (7-17) mg/dL Creatinine 1.29 H (0.52-1.04) mg/dL Glucose 171 H (74-99) mg/dL POC Glucose (mg/dL) 119 H (75-99) mg/dL Osmolality 305 H (280-301) mosm/kg Lactate Dehydrogenase 762 H (313-618) U/L Urine Appearance (Clear) Urine Protein (Negative) Amorphous Sediment (None) /hpf Hyaline Casts (0-2) /lpf Urine Mucus (None) /hpf 10/25/19 10/25/19 10/25/19 Range/Units 12:40 16:54 20:55 Chloride (98-107) mmol/L Carbon Dioxide (22-30) mmol/L BUN (7-17) mg/dL Creatinine (0.52-1.04) mg/dL Glucose (74-99) mg/dL POC Glucose (mg/dL) 115 H 145 H (75-99) mg/dL Osmolality (280-301) mosm/kg Lactate Dehydrogenase (313-618) U/L Urine Appearance Cloudy H (Clear) Urine Protein 1+ H (Negative) Amorphous Sediment Rare H (None) /hpf Hyaline Casts 138 H (0-2) /lpf Urine Mucus Occasional H (None) /hpf 10/26/19 10/26/19 Range/Units 05:39 05:57 Chloride (98-107) mmol/L Carbon Dioxide 17 L (22-30) mmol/L BUN 48 H (7-17) mg/dL Creatinine 2.20 H (0.52-1.04) mg/dL Glucose (74-99) mg/dL POC Glucose (mg/dL) 108 H (75-99) mg/dL Osmolality (280-301) mosm/kg Lactate Dehydrogenase (313-618) U/L Urine Appearance (Clear) Urine Protein (Negative) Amorphous Sediment (None) /hpf Hyaline Casts (0-2) /lpf Urine Mucus (None) /hpf Microbiology - Last 24 Hours (Table) 10/25/19 12:25 Urine Culture - Preliminary Urine,Catheterized Assessment and Plan Assessment: #1 acute on chronic systolic congestive heart failure, previous echocardiogram showed EF 40-45% #2 minimally abnormal troponins, unlikely to be related to acute coronary event #3 persistent atrial fibrillation, anticoagulated #4 hypertension #5 hyperlipidemia #6 obstructive sleep apnea #7 abnormal d-dimer with VQ scan showing low and of intermediate probability for PE #8 acute kidney injury on chronic kidney disease. Plan: From cardiology's perspective, we will stop Lasix for now and await input from nephrology. Recheck lites BUN and creatinine in the morning. Continue anticoagulation with Eliquis. Discontinue aspirin. Awaiting echocardiogram results. We will continue to follow the patient provide further recommendations accordingly. PERFORMANCE ARCHITECT note has been reviewed, I agree with a documented findings and plan of care. Patient was seen and examined.
[2019-10-26] MEDS: APIXABAN 5 MG TAB PO SCH ×2 (10:36→20:30)
[2019-10-26] MEDS: PANTOPRAZOLE 40 MG/10 ML VIAL IVP SCH ×2 (10:36→20:31)
[2019-10-26] MEDS: METOPROLOL TARTRATE 25 MG TAB PO SCH ×2 (10:36→20:30)
[2019-10-26] MEDS: ASPIRIN 81 MG PO SCH (10:36)
[2019-10-26] MEDS: MULTIVITAMINS, THERA 1 EACH TAB PO SCH (10:36)
[2019-10-26] MEDS: SERTRALINE 50 MG TAB PO SCH (10:37)
--- NOTE | 2019-10-26 10:37 | XR ---
EXAMINATION TYPE: XR chest 1V DATE OF EXAM: 10/26/2019 COMPARISON: 10/24/2019 HISTORY: Shortness of breath TECHNIQUE: Single frontal view of the chest is obtained. FINDINGS: Bilateral consolidation and pleural effusion. No pneumothorax. Arthropathy shoulders diffu se osteopenia. Mild prominent interstitium. IMPRESSION: 1. Stable bilateral infiltrate and pleural effusion. Correlate for venous congestion and CHF which ma y be slightly improved. Underlying pneumonia not excluded.
[2019-10-26] MEDS: METHIMAZOLE 5 MG TAB PO SCH (10:38)
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
[2019-10-26] MEDS: SODIUM BICARBONATE TAB 650 MG TAB PO SCH ×2 (10:46→20:30)
--- NOTE | 2019-10-26 12:01 | ECHOF ---
Referral Reason:sob MEASUREMENTS -------- HEIGHT: 160.0 cm WEIGHT: 77.6 kg BP: 105/69 RVIDd: 3.3 cm (< 3.3) IVSd: 1.3 cm (0.6 - 1.1) LVIDd: 4.3 cm (3.9 - 5.3) LVPWd: 1.4 cm (0.6 - 1.1) IVSs: 1.7 cm LVIDs: 4.2 cm LVPWs: 1.4 cm LAESV Index (A-L): 25.30 ml/m Ao Diam: 4.0 cm (2.0 - 3.7) AV Cusp: 1.7 cm (1.5 - 2.6) LA Diam: 2.8 cm (2.7 - 3.8) MV EXCURSION: 14.577 mm (> 18.000) MV EF SLOPE: 169 mm/s (70 - 150) EPSS: 1.4 cm MV E Sotero: 1.21 m/s MV DecT: 205 ms MV A Sotero: 0.57 m/s MV E/A Ratio: 2.13 AR PHT: 386 ms RAP: 20.00 mmHg RVSP: 42.35 mmHg FINDINGS -------- This was a technically adequate study. The left ventricular size is normal. There is mild concentric left ventricular hypertrophy. There is severe global hypokinesis of LV . Overall left ventricular systolic function is severely impair ed with, an EF between 20 - 25 %. Increased LAP Grade 3 Diastolic Dysfunction. Inferior Hypokines is The right ventricle is mildly enlarged. The left atrial size is normal. The right atrium is mildly enlarged. Unable to visualize the septum. Aortic valve is trileaflet and is mildly thickened. There is mild aortic regurgitation. AOV is po ssible Bicuspid. The mitral valve is normal. The mitral valve leaflets are mildly thickened. Mild mitral annular c alcification present. Mild mitral regurgitation is present. The tricuspid valve appears structurally normal. Moderate tricuspid regurgitation present. There is mild pulmonary hypertension. The right ventricular systolic pressure, as measured by Doppler, is 42.35mmHg. There is no pulmonic regurgitation present. The aortic root is dilated measuring 4.0 cm. The inferior vena cava is dilated with no significant inspiratory collapse which is consistent estima jyotsna right atrial pressure of >20 mmHg. There is no pericardial effusion. CONCLUSIONS -------- 1. This was a technically adequate study. 2. The left ventricular size is normal. 3. There is mild concentric left ventricular hypertrophy. 4. There is severe global hypokinesis of LV . 5. Overall left ventricular systolic function is severely impaired with, an EF between 20 - 25 %. 6. Increased LAP Grade 3 Diastolic Dysfunction. 7. Inferior Hypokinesis 8. The right ventricle is mildly enlarged. 9. The left atrial size is normal. 10. The right atrium is mildly enlarged. 11. Unable to visualize the septum. 12. Aortic valve is trileaflet and is mildly thickened. 13. There is mild aortic regurgitation. 14. AOV is possible Bicuspid. 15. The mitral valve is normal. 16. The mitral valve leaflets are mildly thickened. 17. Mild mitral annular calcification present. 18. Mild mitral regurgitation is present. 19. The tricuspid valve appears structurally normal. 20. Moderate tricuspid regurgitation present. 21. There is mild pulmonary hypertension. 22. The right ventricular systolic pressure, as measured by Doppler, is 42.35mmHg. 23. There is no pulmonic regurgitation present. 24. The aortic root is dilated measuring 4.0 cm. 25. The inferior vena cava is dilated with no significant inspiratory collapse which is consistent es timated right atrial pressure of >20 mmHg. 26. There is no pericardial effusion. ENTERTAINMENT CENTRE MANAGER: Bere Chun RDCS
[2019-10-26 12:16] LABS: Glucose,Whole Blood 150 mg/dL (75-99)
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
[2019-10-26 17:26] LABS: Glucose,Whole Blood 114 mg/dL (75-99)
[2019-10-26 20:29] LABS: Glucose,Whole Blood 186 mg/dL (75-99)
[2019-10-26] MEDS: GABAPENTIN 300 MG CAP PO SCH (20:30)
[2019-10-26] MEDS: AZITHROMYCIN 500 MG TAB PO SCH (20:30)
[2019-10-26] MEDS: ATORVASTATIN 20 MG TAB PO SCH (20:30)
[2019-10-27] MEDS: SODIUM BICARBONATE TAB 650 MG TAB PO SCH ×4 (05:49→20:24)
[2019-10-27 06:22] LABS: Albumin 3.6 g/dL (3.5-5.0); Calcium 8.1 mg/dL (8.4-10.2); Magnesium 2.1 mg/dL (1.6-2.3); Potassium 4.3 mmol/L (3.5-5.1); Total Bilirubin 0.8 mg/dL (0.2-1.3); Total Protein 6.7 g/dL (6.3-8.2)
[2019-10-27 06:26] LABS: Glucose,Whole Blood 122 mg/dL (75-99)
[2019-10-27] MEDS: INSULIN ASPART (NovoLOG) 100 UNIT/ML VIAL SQ SCH ×3 (06:42→18:44)
[2019-10-27] MEDS: METHIMAZOLE 5 MG TAB PO SCH (09:00)
[2019-10-27] MEDS ORDERED: APIXABAN 2.5 MG TABLET PO SCH (09:00)
[2019-10-27] MEDS: MULTIVITAMINS, THERA 1 EACH TAB PO SCH (09:00)
[2019-10-27] MEDS: SERTRALINE 50 MG TAB PO SCH (09:00)
[2019-10-27 09:23] LABS: INR 2.4 (<1.2); Prothrombin Time 23.5 sec (9.0-12.0)
--- NOTE | 2019-10-27 11:32 | P.PN ---
Subjective Progress Note Date: 10/27/19 This is a pleasant 74-year-old female with a history of hypertension, obstructive sleep apnea, dyslipidemia, breast cancer, CHF and atrial fibrillation who presented with complaints of nausea and vomiting. Patient remains quite drowsy and is a poor historian. HPI and history were obtained mostly from the chart. Chest x-ray on admission did show pulmonary vascular congestion with a large hiatal hernia. EKG showed atrial fibrillation with left bundle branch block. CT of the abdomen and pelvis showed moderate bilateral pleural effusions with bibasilar pulmonary infiltrates and atelectasis, abdomina l ascites. NT proBNP is elevated at 19,000. She's been on IV Lasix 40 mg by mouth every 8 hours. Labs this morning show significant increase in her BUN and creatinine which yesterday were 27 and 1.29 and this morning were 48 and 2.2. At the time of my examination, patient is resting comfortably in bed. Again she is quite drowsy. She does deny complaints of nausea or vomiting. Has no complaints of shortness of breath. Her only complaint at this time is of feeling tired. 10/27/2019 The patient was seen and examined resting in bed. She is lethargic this morning. Opens eyes to verbal stimuli but does not respond verbally. Echocardiogram showed severely impaired LV systolic function with an ejection fraction of 20-25% with mildly enlarged RV, mild AR with possible bicuspid aortic valve, moderate TR and mild pulmonary hypertension. Labs show further elevation of BUN and creatinine at 67 and 3.28, INR of 2.4 and elevated LFTs with an AST of 3251, ALT 1119 and alkaline phosphatase of 233, ammonia level 44 Objective - Vital Signs Vital signs: Vital Signs Temp 97.9 F 10/27/19 04:00 Pulse 77 10/27/19 04:00 Resp 18 10/27/19 04:00 BP 93/53 10/27/19 04:00 Pulse Ox 96 10/27/19 04:00 Intake & Output 10/26/19 10/27/19 10/27/19 18:59 06:59 18:59 Intake Total 200 150 Output Total 600 150 Balance -400 0 Weight 79 kg Intake: Intake, IV Titration 50 Amount cefTRIAXone 1 gm In 50 Sodium Chloride 0.9% 50 ml @ 100 mls/hr IVPB Q24H [facility] Rx#:[id number] Oral 200 100 Output: Urine 600 150 Other: Voiding Method Indwelling Catheter # Voids 1 1 - Exam PHYSICAL EXAMINATION: HEENT: Head is atraumatic, normocephalic. Pupils equal, round. Neck is supple. There is no elevated jugular venous pressure. HEART EXAMINATION: Heart sounds irregularly irregular, S1 and S2 with a systolic murmur CHEST EXAMINATION: Lungs reveal diminished air entry bilateral bases faint crac kles at the right base. No chest wall tenderness is noted on palpation or with deep breathing. ABDOMEN: Soft, nontender, mildly distended. Bowel sounds are heard. No organomegaly noted. EXTREMITIES: 2+ peripheral pulses with evidence of trace to mild peripheral edema and no calf tenderness noted. NEUROLOGIC patient is lethargic, opens eyes to verbal stimuli but no verbal response . - Labs CBC & Chem 7: 10/24/19 20:47 10/27/19 05:45 Labs: Abnormal Lab Results - Last 24 Hours (Table) 10/26/19 10/26/19 10/26/19 Range/Units 12:05 17:17 20:27 PT (9.0-12.0) sec INR (<1.2) Carbon Dioxide (22-30) mmol/L BUN (7-17) mg/dL Creatinine (0.52-1.04) mg/dL Glucose (74-99) mg/dL POC Glucose (mg/dL) 150 H 114 H 186 H (75-99) mg/dL Calcium (8.4-10.2) mg/dL AST (14-36) U/L ALT (4-34) U/L Alkaline Phosphatase (38-126) U/L Ammonia (<30) umol/L 10/27/19 10/27/19 10/27/19 Range/Units 05:45 06:25 08:56 PT 23.5 H (9.0-12.0) sec INR 2.4 H (<1.2) Carbon Dioxide 17 L (22-30) mmol/L BUN 67 H (7-17) mg/dL Creatinine 3.28 H (0.52-1.04) mg/dL Glucose 131 H (74-99) mg/dL POC Glucose (mg/dL) 122 H (75-99) mg/dL Calcium 8.1 L (8.4-10.2) mg/dL AST 3251 H (14-36) U/L ALT 1119 H (4-34) U/L Alkaline Phosphatase 233 H (38-126) U/L Ammonia (<30) umol/L 10/27/19 Range/Units 08:56 PT (9.0-12.0) sec INR (<1.2) Carbon Dioxide (22-30) mmol/L BUN (7-17) mg/dL Creatinine (0.52-1.04) mg/dL Glucose (74-99) mg/dL POC Glucose (mg/dL) (75-99) mg/dL Calcium (8.4-10.2) mg/dL AST (14-36) U/L ALT (4-34) U/L Alkaline Phosphatase (38-126) U/L Ammonia 44 H (<30) umol/L Microbiology - Last 24 Hours (Table) 10/25/19 12:25 Urine Culture - Final Urine,Catheterized 10/25/19 12:36 Blood Culture - Preliminary Blood No Growth after 24 hours Assessment and Plan Assessment: #1 multisystem organ failure with evidence of CHF, EF 20-25%, SHERIDAN on CKD, and acute liver failure #2 acute on chronic systolic congestive heart failure with severely impaired LV systolic function with EF 20-25% #3 minimally abnormal troponins, unlikely to be related to acute coronary event #4 persistent atrial fibrillation, anticoagulated on Eliquis with INR of 2.4 #5 hypertension #6 hyperlipidemia #7 obstructive sleep apnea #8 abnormal d-dimer with VQ scan showing low and of intermediate probability for PE #9 acute kidney injury on chronic kidney disease. #10 acute liver failure Plan: From cardiology's perspective, we will stop Lipitor, decrease metoprolol due to hypotension and stop Eliquis as patient's INR is 2.4. Unfortunately the patient's prognosis is guarded. We will continue to follow the patient provide further recommendations accordingly. [employer] note has been reviewed, I agree with a documented findings and plan of care. Patient was seen and examined.
--- NOTE | 2019-10-27 11:35 | US ---
EXAMINATION TYPE: US abdomen limited DATE OF EXAM: 10/27/2019 COMPARISON: Prior ultrasound dated 07/16/[address] 10/24/2019 CLINICAL HISTORY: elevated liver tests. elevated liver enzymes, cholecystectomy EXAM MEASUREMENTS: Liver Length: 17.9 cm Gallbladder Wall: Surgically absent CBD: 0.7 cm Right Kidney: 11.4 x 4.1 x 4.6 cm Technical limitations due to large amount of overlying bowel content Pancreas: Tail obscured by overlying bowel gas Liver: Echotexture is heterogeneous Gallbladder: Surgically absent Evidence for sonographic Valladares's sign: no CBD: appears wnl Right Kidney: cystic areas noted, largest = 2.5 x 2.3 x 1.8cm with anechoic appearance, increased th rough transmission and imperceptible wall, cortical medullary differentiation is maintained. Patient's ascites seen in prior CT are not seen on today's exam. Incidental note made of right pleura l effusion. IMPRESSION: Findings could be due to hepatocellular disease. Prominence of the common bile duct may b e due to patient's age and postcholecystectomy change. Exam is somewhat limited.
[2019-10-27 11:43] LABS: Glucose,Whole Blood 128 mg/dL (75-99)
--- NOTE | 2019-10-27 11:48 | P.PN ---
Subjective Patient is seen in follow-up for acute kidney injury. Renal function is worse. Urine output 750 mL in the last 24 hours. She has a Silveira catheter. Remains edematous. She is more lethargic today. Liver enzymes significantly worse compared to yesterday. Echocardiogram revealed ejection fraction of 20-25%. Vital signs are stable. Blood pressure on the lower side. General: The patient appeared well nourished and normally developed. HEENT: Head exam is unremarkable. Neck is without jugular venous distension. LUNGS: Lungs are clear to auscultation and percussion. Breath sounds decreased. HEART: Rate and Rhythm are regular. ABDOMEN: Soft, nontender. EXTREMITITES: 1+ edema. Objective - Vital Signs Vital signs: Vital Signs Temp 97.9 F 10/27/19 04:00 Pulse 77 10/27/19 04:00 Resp 18 10/27/19 04:00 BP 93/53 10/27/19 04:00 Pulse Ox 96 10/27/19 04:00 Intake & Output 10/26/19 10/27/19 10/27/19 18:59 06:59 18:59 Intake Total 200 150 Output Total 600 150 Balance -400 0 Weight 79 kg Intake: Intake, IV Titration 50 Amount cefTRIAXone 1 gm In 50 Sodium Chloride 0.9% 50 ml @ 100 mls/hr IVPB Q24H [facility] Rx#:[id number] Oral 200 100 Output: Urine 600 150 Other: Voiding Method Indwelling Catheter # Voids 1 1 - Labs CBC & Chem 7: 10/24/19 20:47 10/27/19 05:45 Labs: Abnormal Lab Results - Last 24 Hours (Table) 10/26/19 10/26/19 10/26/19 Range/Units 12:05 17:17 20:27 PT (9.0-12.0) sec INR (<1.2) Carbon Dioxide (22-30) mmol/L BUN (7-17) mg/dL Creatinine (0.52-1.04) mg/dL Glucose (74-99) mg/dL POC Glucose (mg/dL) 150 H 114 H 186 H (75-99) mg/dL Calcium (8.4-10.2) mg/dL AST (14-36) U/L ALT (4-34) U/L Alkaline Phosphatase (38-126) U/L Ammonia (<30) umol/L 10/27/19 10/27/19 10/27/19 Range/Units 05:45 06:25 08:56 PT 23.5 H (9.0-12.0) sec INR 2.4 H (<1.2) Carbon Dioxide 17 L (22-30) mmol/L BUN 67 H (7-17) mg/dL Creatinine 3.28 H (0.52-1.04) mg/dL Glucose 131 H (74-99) mg/dL POC Glucose (mg/dL) 122 H (75-99) mg/dL Calcium 8.1 L (8.4-10.2) mg/dL AST 3251 H (14-36) U/L ALT 1119 H (4-34) U/L Alkaline Phosphatase 233 H (38-126) U/L Ammonia (<30) umol/L 10/27/19 Range/Units 08:56 PT (9.0-12.0) sec INR (<1.2) Carbon Dioxide (22-30) mmol/L BUN (7-17) mg/dL Creatinine (0.52-1.04) mg/dL Glucose (74-99) mg/dL POC Glucose (mg/dL) (75-99) mg/dL Calcium (8.4-10.2) mg/dL AST (14-36) U/L ALT (4-34) U/L Alkaline Phosphatase (38-126) U/L Ammonia 44 H (<30) umol/L Microbiology - Last 24 Hours (Table) 10/25/19 12:25 Urine Culture - Final Urine,Catheterized 10/25/19 12:36 Blood Culture - Preliminary Blood No Growth after 24 hours Assessment and Plan Plan: Assessment: 1. Acute kidney injury secondary to ATN secondary to cardiorenal syndrome. Creatinine 3.28 today. No hydronephrosis noted on CAT scan. Creatinine was 0.74 in June 2018. 2. Volume overload. 3. Metabolic acidosis secondary to acute kidney injury, NS, and lactic acidosis. Maintained on oral sodium bicarbonate. Stable. 4. Possible ischemic bowel. Surgery consulted. LDH mildly elevated. 5. Shock liver secondary to hypoperfusion. GI consulted. 6. Acute on chronic systolic CHF with ejection fraction of 20-25% with moderate tricuspid regurgitation. Plan: Start Dobutamine and Lasix drip. Continue to monitor renal function and urine output closely. If no improvement in her renal function and urine output in the next 24 hours, will initiate renal replacement therapy. Case discussed with cardiology.
--- NOTE | 2019-10-27 13:08 | P.PN ---
Subjective Progress Note Date: 10/27/19 Principal diagnosis: Dyspnea, cough, pleural effusion This is a 74-year-old female with history of multiple medical problems including breast cancer and previous right-sided mastectomy, obstructive sleep apnea syndrome, chronic atrial fibrillation maintained on Eliquis and on beta blockers, hypertension, patient presented to the hospital on 10/24/19, complaining of few days' history of increased shortness of breath, and vague abdominal pain. Workup included CT of the abdomen and pelvis, and it showed moderate cardiomegaly, moderate pleural effusions, and atelectasis. It also showed abdominal ascites, this most likely correlated with chronic congestive heart failure. Chest x-ray also showed evidence of pleural effusions and consistent with congestive heart failure. VQ scan showed low to intermediate probability of pulmonary embolism, chest x-ray today showed slight improvement with her congestive heart failure, and hardly any right-sided pleural effusion but she c ontinues to have a small left pleural effusion. Repeat echocardiogram showed severe LV dysfunction with ejection fraction of 20%. Considering the pleural effusion, I was asked to see the patient on consultation. Patient seems to be responding well to diuretics so far, hence I have no plans to perform thoracentesis unless the patient shows worsening pleural effusion and no response to diuretics. On 10/27/2019 patient seen in follow-up on selective care unit. Patient is still producing very limited amount of urine, only 310 mL of urine in the last 24 hours and the patient did receive Lasix challenge per nephrology. She is lethargic on today's exam, but arousable, she is mumbling, 2 L of oxygen and the pulse ox of 94-96%, she's been afebrile, blood pressures 97/63. Lung sounds are diminished bilaterally. So far blood and urine cultures have shown no growth. Her renal profile is worsening, with BUN up to 67 and creatinine at 3.28, nephrology is following, her liver enzymes jumped to 3251 from 55 on 10/24/2019, ALT is 1119, and alkaline phosphatase is 233, ammonia level is 44. Abdomen is soft, nontender. Urinalysis was negative for any sign of infection, abdominal ultrasound showed prominence of the common bile duct that could be related to postcholecystectomy change. Echocardiogram showed severely impaired left ventricle systolic function with an EF of 20-25%, mild mitral regurg, moderate tricuspid regurg, IVC is dilated with no significant inspiratory collapse with e stimated right atrial pressure of greater than 20 mmHg. Per nephrology and cardiology patient will be started on dobutamine and Lasix drip in view of worsening renal function, cardiorenal syndrome. From pulmonary perspective bilateral pleural effusions were too small for drainage Objective - Vital Signs Vital signs: Vital Signs Temp 97.5 F L 10/27/19 12:00 Pulse 80 10/27/19 12:00 Resp 12 10/27/19 12:00 BP 97/63 10/27/19 12:00 Pulse Ox 96 10/27/19 12:00 Intake & Output 10/26/19 10/27/19 10/27/19 18:59 06:59 18:59 Intake Total 200 150 Output Total 600 150 Balance -400 0 Weight 79 kg Intake: Intake, IV Titration 50 Amount cefTRIAXone 1 gm In 50 Sodium Chloride 0.9% 50 ml @ 100 mls/hr IVPB Q24H [facility] Rx#:[id number] Oral 200 100 Output: Urine 600 150 Other: Voiding Method Indwelling Catheter Indwelling Catheter # Voids 1 1 - Exam GENERAL EXAM: Lethargic, chronically ill-looking but easily arousable to verbal stimulation, 74-year-old white female on 2 L of oxygen the pulse ox of 96% comfortable in no apparent distress. HEAD: Normocephalic/atraumatic. EYES: Normal reaction of pupils, equal size. Conjunctiva pink, sclera white. NOSE: Clear with pink turbinates. THROAT: No erythema or exudates. NECK: No masses, no JVD, no thyroid enlargement, no adenopathy. CHEST: No chest wall deformity. Symmetrical expansion. LUNGS: Equal air entry with no crackles, wheeze, rhonchi or dullness. CVS: Regular rate and rhythm, normal S1 and S2, no gallops, no murmurs, no rubs ABDOMEN: Soft, nontender. No hepatosplenomegaly, normal bowel sounds, no guarding or rigidity. EXTREMITIES: No clubbing, no edema, no cyanosis, 2+ pulses and upper and lower extremities. MUSCULOSKELETAL: Muscle strength and tone normal. SPINE: No scoliosis or deformity SKIN: No rashes CENTRAL NERVOUS SYSTEM: Drowsy. No focal deficits, tone is normal in all 4 extremities. - Labs CBC & Chem 7: 10/24/19 20:47 10/27/19 05:45 Labs: Abnormal Lab Results - Last 24 Hours (Table) 10/26/19 10/26/19 10/27/19 Range/Units 17:17 20:27 05:45 PT (9.0-12.0) sec INR (<1.2) Carbon Dioxide 17 L (22-30) mmol/L BUN 67 H (7-17) mg/dL Creatinine 3.28 H (0.52-1.04) mg/dL Glucose 131 H (74-99) mg/dL POC Glucose (mg/dL) 114 H 186 H (75-99) mg/dL Calcium 8.1 L (8.4-10.2) mg/dL AST 3251 H (14-36) U/L ALT 1119 H (4-34) U/L Alkaline Phosphatase 233 H (38-126) U/L Ammonia (<30) umol/L 10/27/19 10/27/19 10/27/19 Range/Units 06:25 08:56 08:56 PT 23.5 H (9.0-12.0) sec INR 2.4 H (<1.2) Carbon Dioxide (22-30) mmol/L BUN (7-17) mg/dL Creatinine (0.52-1.04) mg/dL Glucose (74-99) mg/dL POC Glucose (mg/dL) 122 H (75-99) mg/dL Calcium (8.4-10.2) mg/dL AST (14-36) U/L ALT (4-34) U/L Alkaline Phosphatase (38-126) U/L Ammonia 44 H (<30) umol/L 10/27/19 Range/Units 11:41 PT (9.0-12.0) sec INR (<1.2) Carbon Dioxide (22-30) mmol/L BUN (7-17) mg/dL Creatinine (0.52-1.04) mg/dL Glucose (74-99) mg/dL POC Glucose (mg/dL) 128 H (75-99) mg/dL Calcium (8.4-10.2) mg/dL AST (14-36) U/L ALT (4-34) U/L Alkaline Phosphatase (38-126) U/L Ammonia (<30) umol/L Microbiology - Last 24 Hours (Table) 10/25/19 12:25 Urine Culture - Final Urine,Catheterized 10/25/19 12:36 Blood Culture - Preliminary Blood No Growth after 24 hours Assessment and Plan Plan: Assessment: Acute on chronic systolic congestive heart failure with pleural effusions and ascites. Repeat echocardiogram showed worsening LV function. Possible non-ST elevation myocardial infarction. Acute on chronic kidney injury, patient is known to have history of chronic kidney disease stage II, I suspect we may be dealing with a cardiorenal syndrome. No clear-cut evidence of pneumonia based on chest x-ray and based on the clinical history. Nondiagnostic VQ scan, but clinically the patient does not have pulmonary embolism. Chronic atrial fibrillation. Patient is maintained on anti-GERD ablation therapy and beta blockers. Dyslipidemia. Obstructive sleep apnea syndrome on home CPAP. History of hyperthyroidism, maintained on Tapazole. Acute elevation of the liver enzymes, likely related to hypoperfusion due to severe cardiomyopathy and acute exacerbation of systolic CHF Plan: Agree with dobutamine and Lasix, no plans for thoracentesis, today's labs show acute elevation of patient's liver enzymes and further worsening of renal profile, likely related to hypoperfusion in view of impaired LV function and EF of 20-25%. Overall prognosis is extremely guarded, code status has to be discussed with patient's family. We'll continue to closely follow I performed a history & physical examination of the patient and discussed their management with my nurse practitioner, Tiffanie Selby. I reviewed the nurse practitioner's note and agree with the documented findings and plan of care. Lung sounds are positive for diminished breath sounds. The findings and the impression was discussed with the patient. I attest to the documentation by the nurse practitioner. Time with Patient: Less than 30
--- NOTE | 2019-10-27 13:27 | P.PN ---
Subjective Progress Note Date: 10/27/19 This is a 74-year-old female patient of Dr. Nelson with past medical history of breast cancer post right sided mastectomy, hyperglycemia, hyperthyroidism, obstructive sleep apnea, chronic atrial fibrillation on eliquis, hypertension, hyperlipidemia. Patient complains of feeling tired, nauseated and short of breath and cough. She states she has had nausea and vomiting along with since weekend. She denies having any fever or chills. Lab work revealed WBC 13.6, hemoglobin 14.3, platelet count 372. Sodium 141, potassium 3.7, chloride 109, CO2 17, BUN 24 and creatinine 1.21. B lood sugar was 149. AST of 55 and alkaline phosphatase 188, ALT 29. Lipase 386 INR 1.2. Initial lactic acid 3.3. Troponin 0.035. ProBNP 9000. EKG was atrial fibrillation with a rate of 90. Chest x-ray reveals congestive heart failure with pleural fluid that appears new. Large hiatal hernia unchanged. CAT scan of the abdomen and pelvis revealed moderate cardiomegaly. Bilateral moderate pleural effusions and basilar pulmonary infiltrates and atelectasis. Abdominal ascites. This could be related to chronic heart failure. Ascites and pleural fluid are new compared to old exam. 10/25: Patient continues to have shortness of breath and speech is slow. She remains slightly confused but oriented 3. Patient is not back to her baseline. Her abdomen is better. She denies abdominal pain. She is on a full liquid diet. Consult with Dr. Valentin added her concern for ischemic bowel. Consult also added for Dr. Koroma for pleural effusion. child monitor is atrial fibrillation. Silveira catheter was placed for urinary retention. VQ scan is low end of intermediate probability for pulmonary embolism. Patient has been seen in follow-up by cardiology for possible non-ST elevated myocardial infarction with recommendations to continue current medication and continue diuretics. Echocardiogram pending. Patient is followed by nephrology and seen yesterday started on a bicarb drip and discontinued Lasix. Today, oral sodium bicarb was added and Lasix 80 mg IV once. Repeat chest x-ray was ordered. Patient has been afebrile, heart rate 88, blood pressure 105/69, pulse ox 94% on 2 L nasal cannula. Repeat blood work reveals sodium 142, potassium 4.7, chloride 107, CO2 17, BUN 48 creatinine 2.20. Blood sugars are running between 96 and 145. Urinalysis cloudy, nitrate and leukoesterase negative. Acetone was negative, LDH 762. Serum osmolality 305. 6/9: Patient have increasing confusion today with significantly elevated liver function tests with AST of 3251, ALT 1119, alkaline phosphatase 233. We have added and lab work for ammonia level which came back 44 and INR of 2.4. Eliquis discontinued. Consult with GI has been added. Concern for drug induced hepatitis and azithromycin and ceftriaxone will be discontinued. Patient is currently on ceftriaxone only. Acute hepatitis panel and abdominal ultrasound ordered. Patient has been started on dobutamine drip and Lasix drip by nephrology. Echocardiogram reveals EF of 20-25%, mild aortic regurgitation, mild mitral regurgitation, moderate tricuspid regurgitation, mild pulmonary hypertension. Chest x-ray from yesterday reveals stable bilateral infiltrate and pleural effusion. Correlate for venous congestion and CHF may be slightly improved. Underlying pneumonia not excluded. Discussed case with Dr. Valentin and he feels that bowel symptoms and elevated liver function tests are related to ischemic bowel secondary to hypoperfusion from heart failure. 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 Patient is followed by multiple consultants. Objective - Vital Signs Vital signs: Vital Signs Temp 97.9 F 10/27/19 04:00 Pulse 77 10/27/19 04:00 Resp 18 10/27/19 04:00 BP 93/53 10/27/19 04:00 Pulse Ox 96 10/27/19 04:00 Intake & Output 10/26/19 10/27/19 10/27/19 18:59 06:59 18:59 Intake Total 200 150 Output Total 600 150 Balance -400 0 Weight 79 kg Intake: Intake, IV Titration 50 Amount cefTRIAXone 1 gm In 50 Sodium Chloride 0.9% 50 ml @ 100 mls/hr IVPB Q24H [facility] Rx#:[id number] Oral 200 100 Output: Urine 600 150 Other: Voiding Method Indwelling Catheter # Voids 1 1 - Exam Review of Systems Constitutional: Reports anorexia, Reports daytime sleepiness, Reports fatigue, Reports lethargy, Reports poor appetite, Reports weakness, Denies chills, Denies fever Eyes: denies blurred vision, denies pain Ears, nose, mouth and throat: Denies dysphagia, Denies headache, Denies nasal congestion, Denies nasal discharge, Denies sore throat, Denies vertigo Cardiovascular: Reports decreased exercise tolerance, Reports dyspnea on exert ion, Reports shortness of breath, Denies chest pain, Denies syncope Respiratory: Reports cough, Reports dyspnea, Reports sleep apnea, Denies cough with sputum, Denies excessive sputum, Denies hemoptysis, Denies home oxygen Gastrointestinal: Reports loss of appetite, Reports nausea, Reports vomiting, Denies abdominal pain, Denies bloating, Denies diarrhea Genitourinary: Denies dysuria, Denies hematuria, Denies urgency, Denies urinary frequency Menstruation: Reports postmenopausal Musculoskeletal: Reports muscle weakness, Denies myalgias Integumentary: Denies pruritus, Denies rash, Denies wounds Neurological: Denies numbness, Denies weakness, reports confusion Psychiatric: Denies anxiety, Denies depression Physical Examination Gen: This is a 74-year-old female. Patient is resting in bed but appears fatigued. More confused today. HEENT: Head is atraumatic, normocephalic. Pupils equal, round. Sclerae is anicteric. NECK: Supple. No JVD. No lymphadenopathy. No thyromegaly. LUNGS: Clear to auscultation. No wheezes or rhonchi. No intercostal retracti ons. HEART: Irregularly irregular rate and rhythm. Systolic murmur. ABDOMEN: Soft. Bowel sounds are present. No masses. No tenderness. No right upper quadrant or epigastric tenderness noted. EXTREMITIES: 1+ pedal edema. No calf tenderness. NEUROLOGICAL: Patient is awake, oriented to person with worsening confusion. Cranial nerves 2 through 12 are grossly intact. - Labs CBC & Chem 7: 10/24/19 20:47 10/27/19 05:45 Labs: Abnormal Lab Results - Last 24 Hours (Table) 10/26/19 10/26/19 10/26/19 Range/Units 12:05 17:17 20:27 Carbon Dioxide (22-30) mmol/L BUN (7-17) mg/dL Creatinine (0.52-1.04) mg/dL Glucose (74-99) mg/dL POC Glucose (mg/dL) 150 H 114 H 186 H (75-99) mg/dL Calcium (8.4-10.2) mg/dL AST (14-36) U/L ALT (4-34) U/L Alkaline Phosphatase (38-126) U/L 10/27/19 10/27/19 Range/Units 05:45 06:25 Carbon Dioxide 17 L (22-30) mmol/L BUN 67 H (7-17) mg/dL Creatinine 3.28 H (0.52-1.04) mg/dL Glucose 131 H (74-99) mg/dL POC Glucose (mg/dL) 122 H (75-99) mg/dL Calcium 8.1 L (8.4-10.2) mg/dL AST 3251 H (14-36) U/L ALT 1119 H (4-34) U/L Alkaline Phosphatase 233 H (38-126) U/L Microbiology - Last 24 Hours (Table) 10/25/19 12:36 Blood Culture - Preliminary Blood No Growth after 24 hours 10/25/19 12:25 Urine Culture - Preliminary Urine,Catheterized Assessment and Plan Plan: 1. Acute on chronic systolic heart failure with pleural effusions and ascites. Previous echocardiogram with EF of 40-45 % from June 2018. Repeat echocardiogram reveals EF of 20-25%. Nephrology has started the patient on dobutamine and Lasix drips. Continue Lopressor decreased to 12.5 mg twice daily. Monitor I&O and daily weights. Consult with Dr. Koroma added regarding pleural effusions-no plan for thoracentesis. 2. Possible non-ST elevated myocardial infarction. Cardiology consult. Continue Lopressor decreased to 12.5 mg twice daily, discontinue Lipitor 20 mg at bedtime. 3. Acute kidney injury with chronic kidney disease stage II. Nephrology consult appreciated. Worsening renal function. 4. Metabolic acidosis secondary to acute kidney injury, normal saline, lactic acidosis. Nephrology consult. 5. Possible pneumonia. Ruled out by pulmonary medicine. Discontinue ceftriaxone and azithromycin. 6. Difficulty breathing with elevated d-dimer of 2.38. VQ scan ruled out PE. Patient states she has not missed any doses of eliquis. 7. Chronic atrial fibrillation. Continue eliquis 5 mg twice daily and Lopressor. 8. Transaminitis possibly related to heart failure or from Matthews, possibly drug induced. Recheck liver function tests in the morning. Hold Lopid and Lipitor. A azithromycin and ceftriaxone discontinued. Abdominal ultrasound, hepatitis panel, GI consult. 9. Multiorgan failure secondary to heart failure with ejection fraction of 20- 25%, acute kidney injury, acute liver failure, elevated troponins. 10. Nausea and vomiting possibly related to heart failure, liver congestion, history of Matthews. Continue Zofran as needed for nausea, Protonix 40 mg IV twice daily. Consult with Dr. Valentin. Patient is currently on full liquid diet. 11. Borderline diabetes. Patient will be started on NovoLog scale before meals and at bedtime, hemoglobin A1c. 12. Obstructive sleep apnea on CPAP. 13. Hypothyroidism. Continue Tapazole 5 mg daily. Check for TSH and free T4. 14. DVT prophylaxis. Eliquis. 15. GI prophylaxis. Protonix. 16. Urinary retention. Silveira catheter placed. 17. COVID-19 infection not present. 18. Dyslipidemia. Hold Lopid 600 mg twice daily. Discharge plan: To be determined. PT and OT added. Anticipate need for subacute rehab. Impression and plan of care have been directed as dictated by the signing physician. Alee Wang nurse practitioner acting as scribe for signing physician.
[2019-10-27] MEDS: METOPROLOL TARTRATE 12.5 MG TAB PO SCH ×2 (15:16→20:25)
[2019-10-27] MEDS: FUROSEMIDE 100 MG in SODIUM CHLORIDE 0.9% 90 ML IV SCH (16:20)
[2019-10-27] MEDS: DOBUTamine DRIP 500 MG in DEXTROSE/WATER 1 250ML.BAG IV SCH (16:21)
[2019-10-27] MEDS: PANTOPRAZOLE 40 MG/10 ML VIAL IVP SCH ×2 (16:22→20:25)
[2019-10-27 16:51] LABS: Glucose,Whole Blood 124 mg/dL (75-99)
[2019-10-27 17:56] LABS: Hepatitis A Antibody IgM Non-Reactive (Non-Reactive); Hepatitis B Core IgM Non-Reactive (Non-Reactive); Hepatitis B Surface Antigen Non-Reactive (Non-Reactive); Hepatitis C IgG Antibody Non-Reactive (Non-Reactive)
--- NOTE | 2019-10-27 18:16 | P.PN ---
Progress Note - Text Progress Note Date: 10/27/19 The patient appears to be confused today. She is definitely different from yesterday. Her liver enzymes have increased significantly. On exam vital signs appear stable. Abdomen soft. There is minimal tenderness. There is some mild tenderness or quadrant. There is no rebound or guarding. Shock liver. Patient's liver enzymes will be monitored. No surgical intervention is planned at this point.
--- NOTE | 2019-10-27 18:53 | CONS ---
CONSULTATION DATE OF DICTATION: 10/27/2019 REASON FOR CONSULTATION: Acute elevation of serum transaminases. HISTORY OF PRESENT ILLNESS: The patient is a 74-year-old white female who was admitted to hospital with shortness of breath, not feeling well, tired, nauseated, associated with some nausea and vomiting on and off for the last 2 weeks. She has history of congestive heart failure, COPD and atrial fibrillation, presently on Eliquis. Following admission to the hospital she had a CT of the abdomen and pelvis done that showed moderate cardiomegaly with noted pleural effusion and evidence of mild ascites. Chest x-ray showed evidence of consistent with congestive heart failure. Echocardiogram showed severe LV dysfunction with an ejection fraction of 20%. At the time of admission to the hospital, her serum transaminases were minimally elevated at 55 and 29 respectively, which was on October 23. On October 26, serum transaminases were 3251 and 1119, respectively, with bilirubin and alkaline phosphatase normal. We are hence consulted in regard to this issue. The patient is an extremely poor historian, not responding to simple questions. As per the medical records, no history of chronic liver disease. Her BUN and creatinine were 24 and 1.21, respectively, at the time of admission to the hospital, and today they are 67 and 3.28. As per the nursing notes, the patient had some hypertension during the entire hospital course with her blood pressure ranging in the range of 90s over 60s. PAST MEDICAL HISTORY: Her past medical history is significant for hypertension, congestive heart failure, sleep apnea, dementia, hyperlipidemia, hypertension, COPD, history of breast cancer. PAST SURGICAL HISTORY: Adenoidectomy, appendectomy, cholecystectomy, hysterectomy, tonsillectomy. SOCIAL HISTORY: Former smoker. No alcohol use. FAMILY HISTORY: Father with coronary artery disease. Mother had varicose veins. Brother had coronary artery disease. MEDICATIONS: Medications at home include Lopid, multivitamin, Zocor, Restoril, HydroDIURIL, Tapazole, Zoloft. ALLERGIES: LEVAQUIN and LATEX. REVIEW OF SYSTEMS: Review of systems could not be obtained, as patient is not answering questions appropriately. PHYSICAL EXAMINATION: She appears comfortable. No obvious distress. Vital signs are stable. Blood pressure is 97/60, pulse rate 80, temperature 97.5. HEENT examination unremarkable. Conjunctivae pink. Sclerae anicteric. Oral cavity no lesions. NECK: No JVD or lymph node enlargement. CHEST: Decreased breath sounds bilaterally. HEART: Irregular rate and rhythm. ABDOMEN: Soft. Non-distended. Bowel sounds are positive. No free fluid that was appreciated. EXTREMITIES: No pedal edema. SKIN: No rashes. NEUROLOGIC: Awake but very confused. LABS: Labs done today show INR is 2.4, PT 23.5. AST and ALT are 3251 and 1119, respectively, alkaline phosphatase 233, T-bilirubin 0.8. Three days ago, AST was 55, ALT was 29, and alkaline phosphatase was 188. BUN is 65, creatinine 3.28. Hemoglobin 14.3, WBC 13.6, and platelets 372. CT of the abdomen and pelvis done in the emergency room showed evidence of mild ascites. Liver was normal. No pancreatic masses identified. Moderate cardiomegaly, bilateral moderate pleural effusion and basilar pulmonary infiltrates noted. IMPRESSION: 1. Acute elevation of serum transaminases, with serum transaminases in the range of 2000 and 3000, which were normal at the time of admission to the hospital 3 days ago. This clinical picture is very consistent with hypoperfusion causing ischemic hepatitis. Her blood pressures during the course of hospitalization have been in the range of low 90s, which have created a low perfusion state resulting in acute liver injury/acute kidney injury causing the acute tubular necrosis. Hospital medical record sheet does not have any history of chronic liver disease. 2. Exacerbation of congestive heart failure. 3. Acute kidney injury causing acute tubular necrosis. 4. Elevated coagulopathy secondary to Eliquis, currently on hold. 5. Mild abdominal ascites, probably cardiac-related. RECOMMENDATIONS: 1. Hold Eliquis. 2. Repeat PT/INR in the morning. 3. Follow LFTs closely. 4. Often serum transaminases improve with hemodynamic stability. 5. Obtain hepatitis viral serologies for A, B and C and we will follow with you closely. Thank you for this consultation. MMODL / IJN: [id number] /
[2019-10-27] MEDS: GABAPENTIN 300 MG CAP PO SCH (20:24)
[2019-10-27 20:31] LABS: Glucose,Whole Blood 119 mg/dL (75-99)
[2019-10-28] MEDS: INSULIN ASPART (NovoLOG) 100 UNIT/ML VIAL SQ SCH ×5 (03:00→21:30)
[2019-10-28] MEDS: FUROSEMIDE 100 MG in SODIUM CHLORIDE 0.9% 90 ML IV SCH ×3 (03:09→15:08)
[2019-10-28 06:18] LABS: Glucose,Whole Blood 132 mg/dL (75-99)
[2019-10-28 07:15] LABS: Prothrombin Time 19.5 sec (9.0-12.0)
[2019-10-28 07:24] LABS: Albumin 3.4 g/dL (3.5-5.0); Calcium 7.7 mg/dL (8.4-10.2); Magnesium 2.1 mg/dL (1.6-2.3); Potassium 3.7 mmol/L (3.5-5.1); Total Bilirubin 0.6 mg/dL (0.2-1.3); Total Protein 6.3 g/dL (6.3-8.2)
[2019-10-28 08:01] LABS: HCT 38.7 % (34.0-46.0); HGB 12.2 gm/dL (11.4-16.0); Hypochromasia Moderate; MCH 29.2 pg (25.0-35.0); MCHC 31.6 g/dL (31.0-37.0); MCV 92.5 fL (80.0-100.0); Mean Platelet Volume 12.2; Platelet Count 224 k/uL (150-450); RBC 4.19 m/uL (3.80-5.40); RDW 13.1 % (11.5-15.5); WBC 15.5 k/uL (3.8-10.6)
[2019-10-28] MEDS: METHIMAZOLE 5 MG TAB PO SCH (08:51)
[2019-10-28] MEDS: PANTOPRAZOLE 40 MG/10 ML VIAL IVP SCH (08:53)
[2019-10-28] MEDS ORDERED: METOPROLOL TARTRATE 12.5 MG TAB PO SCH (09:00)
[2019-10-28] MEDS ORDERED: POTASSIUM CHLORIDE 20 MEQ in WATER FOR INJECTION 1 100ML.BAG IVPB STA (09:28)
--- NOTE | 2019-10-28 09:32 | CT ---
EXAMINATION TYPE: CT brain wo con DATE OF EXAM: 10/28/2019 COMPARISON: 05/07/2016 INDICATION: Mental status changes DLP: 952.6 mGycm, Automated exposure control for dose reduction was used. CONTRAST: None CT of the brain is performed utilizing 3 mm thick sections through the posterior fossa and 3 mm thick sections through the remaining calvarium. Study is performed within 24 hours of arrival to the hosp [facility]. No abnormal hyperdensity is present to suggest an acute intracranial hemorrhage. No mass lesion is evident. No acute infarcts are evident. The suspected chronic white matter changes is less apparent on the cur rent exam Ventricles and sulci are mildly prominent for the patient age. Paranasal sinuses and mastoid air cells within the [id number] are clear. IMPRESSIONS: 1. Mild age-related atrophy
[2019-10-28] MEDS: SODIUM BICARBONATE TAB 650 MG TAB PO SCH ×3 (09:56→21:35)
[2019-10-28] MEDS: SERTRALINE 50 MG TAB PO SCH (09:56)
[2019-10-28] MEDS: METOPROLOL TARTRATE 5 MG/5 ML VIAL IVP SCH ×2 (09:58→21:36)
--- NOTE | 2019-10-28 10:53 | P.PN ---
Subjective Progress Note Date: 10/28/19 This is a 74-year-old female patient of Dr. Nelson with past medical history of breast cancer post right sided mastectomy, hyperglycemia, hyperthyroidism, obstructive sleep apnea, chronic atrial fibrillation on eliquis, hypertension, hyperlipidemia. Patient complains of feeling tired, nauseated and short of breath and cough. She states she has had nausea and vomiting along with since weekend. She denies having any fever or chills. Lab work revealed WBC 13.6, hemoglobin 14.3, platelet count 372. Sodium 141, potassium 3.7, chloride 109, CO2 17, BUN 24 and creatinine 1.21. B lood sugar was 149. AST of 55 and alkaline phosphatase 188, ALT 29. Lipase 386 INR 1.2. Initial lactic acid 3.3. Troponin 0.035. ProBNP 9000. EKG was atrial fibrillation with a rate of 90. Chest x-ray reveals congestive heart failure with pleural fluid that appears new. Large hiatal hernia unchanged. CAT scan of the abdomen and pelvis revealed moderate cardiomegaly. Bilateral moderate pleural effusions and basilar pulmonary infiltrates and atelectasis. Abdominal ascites. This could be related to chronic heart failure. Ascites and pleural fluid are new compared to old exam. 10/25: Patient continues to have shortness of breath and speech is slow. She remains slightly confused but oriented 3. Patient is not back to her baseline. Her abdomen is better. She denies abdominal pain. She is on a full liquid diet. Consult with Dr. Valentin added her concern for ischemic bowel. Consult also added for Dr. Koroma for pleural effusion. panel monitor is atrial fibrillation. Silveira catheter was placed for urinary retention. VQ scan is low end of intermediate probability for pulmonary embolism. Patient has been seen in follow-up by cardiology for possible non-ST elevated myocardial infarction with recommendations to continue current medication and continue diuretics. Echocardiogram pending. Patient is followed by nephrology and seen yesterday started on a bicarb drip and discontinued Lasix. Today, oral sodium bicarb was added and Lasix 80 mg IV once. Repeat chest x-ray was ordered. Patient has been afebrile, heart rate 88, blood pressure 105/69, pulse ox 94% on 2 L nasal cannula. Repeat blood work reveals sodium 142, potassium 4.7, chloride 107, CO2 17, BUN 48 creatinine 2.20. Blood sugars are running between 96 and 145. Urinalysis cloudy, nitrate and leukoesterase negative. Acetone was negative, LDH 762. Serum osmolality 305. 10/26: Patient have increasing confusion today with significantly elevated liver function tests with AST of 3251, ALT 1119, alkaline phosphatase 233. We have added and lab work for ammonia level which came back 44 and INR of 2.4. Eliquis discontinued. Consult with GI has been added. Concern for drug induced hepatitis and azithromycin and ceftriaxone will be discontinued. Patient is currently on ceftriaxone only. Acute hepatitis panel and abdominal ultrasound ordered. Patient has been started on dobutamine drip and Lasix drip by nephrology. Echocardiogram reveals EF of 20-25%, mild aortic regurgitation, mild mitral regurgitation, moderate tricuspid regurgitation, mild pulmonary hypertension. Chest x-ray from yesterday reveals stable bilateral infiltrate and pleural effusion. Correlate for venous congestion and CHF may be slightly improved. Underlying pneumonia not excluded. Discussed case with Dr. Valentin and he feels that bowel symptoms and elevated liver function tests are related to ischemic bowel secondary to hypoperfusion from heart failure. 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 Patient is followed by multiple consultants. 10/27: The patient's mental status continues to decline. Patient is unable to take any oral intake. She did take small amount of liquid this morning for her medication and was aspirating. She had worsening AST 2718, ALT 1246, phosphatase 219, total bilirubin is 0.6, INR 2.0. WBC 15.5, hemoglobin 12.2. Renal function continues to worsen as well with a BUN of 85 and creatinine 3.67. Patient is currently on dobutamine and Lasix drips. She has had runs of V. tach 1-2 times per day for the past 2 days. She has been afebrile, heart rate 90, blood pressure 94/56, pulse ox 96% on 2 L. panel monitor panel monitor is atrial fibrillation with controlled rate. Patient's oral medications have been either discontinued or changed to IV. Abdominal ultrasound revealed findings due to hepatocellular disease. Prominence of the common bile duct may be due to patient's age and postcholecystectomy change. Exam limited. The patient was seen by GI yesterday and findings consistent with hypoperfusion causing ischemic hepatitis CAT scan of the brain ordered this morning which revealed mild age-related atrophy. Contacted patient's son Faraz and given up date regarding her condition and worsening condition and prognosis. He and his sister care will come up to see the patient. Confirm the patient is a full code . Objective - Vital Signs Vital signs: Vital Signs Temp 96.9 F L 10/28/19 04:00 Pulse 80 10/28/19 04:00 Resp 18 10/28/19 04:00 BP 106/64 10/28/19 04:00 Pulse Ox 96 10/28/19 04:00 Intake & Output 10/27/19 10/28/19 10/28/19 18:59 06:59 18:59 Intake Total 227.36 Output Total 20 550 Balance -20 -322.64 Weight 83.5 kg Intake: IV 80 Furosemide 100 mg In 80 Sodium Chloride 0.9% 90 ml @ 10 MG/HR 10 mls/hr IV .Q10H [facility] Rx#: [id number] Intake, IV Titration 147.36 Amount DOBUTamine DRIP 500 mg In 47.36 Dextrose/Water 1 250ml. bag @ 2.5 MCG/KG/MIN 5. 925 mls/hr IV .Q24H [facility] Rx#:[id number] Furosemide 100 mg In 100 Sodium Chloride 0.9% 90 ml @ 10 MG/HR 10 mls/hr IV .Q10H [facility] Rx#: [id number] Output: Urine 20 550 Other: Voiding Method Indwelling Catheter Indwelling Catheter - Exam Review of Systems Unable to obtain due to mental status changes Physical Examination Gen: This is a 74-year-old female. Patient is resting in bed but a ppears fatigued. More confused today. HEENT: Head is atraumatic, normocephalic. Pupils equal, round. Sclerae is anicteric. NECK: Supple. No JVD. No lymphadenopathy. No thyromegaly. LUNGS: Clear to auscultation. No wheezes or rhonchi. No intercostal retractions. HEART: Irregularly irregular rate and rhythm. Systolic murmur. ABDOMEN: Soft. Bowel sounds are present. No masses. No tenderness. No right upper quadrant or epigastric tenderness noted. EXTREMITIES: 1+ pedal edema. No calf tenderness. NEUROLOGICAL: Patient is lethargic, unable to answer questions, unable to follow commands. Significant weakness noted. - Labs CBC & Chem 7: 10/28/19 05:58 10/28/19 05:58 Labs: Abnormal Lab Results - Last 24 Hours (Table) 10/27/19 10/27/19 10/27/19 Range/Units 08:56 08:56 11:41 WBC (3.8-10.6) k/uL PT 23.5 H (9.0-12.0) sec INR 2.4 H (<1.2) Carbon Dioxide (22-30) mmol/L BUN (7-17) mg/dL Creatinine (0.52-1.04) mg/dL Glucose (74-99) mg/dL POC Glucose (mg/dL) 128 H (75-99) mg/dL Calcium (8.4-10.2) mg/dL AST (14-36) U/L ALT (4-34) U/L Alkaline Phosphatase (38-126) U/L Ammonia 44 H (<30) umol/L Albumin (3.5-5.0) g/dL 10/27/19 10/27/19 10/28/19 Range/Units 16:49 20:29 05:58 WBC 15.5 H (3.8-10.6) k/uL PT (9.0-12.0) sec INR (<1.2) Carbon Dioxide (22-30) mmol/L BUN (7-17) mg/dL Creatinine (0.52-1.04) mg/dL Glucose (74-99) mg/dL POC Glucose (mg/dL) 124 H 119 H (75-99) mg/dL Calcium (8.4-10.2) mg/dL AST (14-36) U/L ALT (4-34) U/L Alkaline Phosphatase (38-126) U/L Ammonia (<30) umol/L Albumin (3.5-5.0) g/dL 10/28/19 10/28/19 10/28/19 Range/Units 05:58 05:58 06:17 WBC (3.8-10.6) k/uL PT 19.5 H (9.0-12.0) sec INR 2.0 H (<1.2) Carbon Dioxide 17 L (22-30) mmol/L BUN 85 H (7-17) mg/dL Creatinine 3.67 H (0.52-1.04) mg/dL Glucose 125 H (74-99) mg/dL POC Glucose (mg/dL) 132 H (75-99) mg/dL Calcium 7.7 L (8.4-10.2) mg/dL AST 2718 H (14-36) U/L ALT 1246 H (4-34) U/L Alkaline Phosphatase 219 H (38-126) U/L Ammonia (<30) umol/L Albumin 3.4 L (3.5-5.0) g/dL Microbiology - Last 24 Hours (Table) 10/25/19 12:36 Blood Culture - Preliminary Blood No Growth after 48 hours 10/25/19 12:25 Urine Culture - Final Urine,Catheterized Assessment and Plan Plan: 1. Acute on chronic systolic heart failure with pleural effusions and ascites. Previous echocardiogram with EF of 40-45 % from June 2018. Repeat echocardiogram reveals EF of 20-25%. Nephrology has started the patient on dobutamine and Lasix drips. Continue Lopressor changed to IV 5 mg mg twice daily. Monitor I&O and daily weights. Consult with Dr. Koroma appreciated regarding pleural effusions-no plan for thoracentesis. 2. Possible non-ST elevated myocardial infarction. Cardiology consult. Continue Lopressor, discontinue Lipitor 20 mg at bedtime. 3. Acute kidney injury with chronic kidney disease stage II. Nephrology consult appreciated. Worsening renal function. 4. Metabolic acidosis secondary to acute kidney injury, normal saline, lactic acidosis. Nephrology consult. 5. Possible pneumonia. Ruled out by pulmonary medicine. Discontinue ceftriaxone and azithromycin. 6. Difficulty breathing with elevated d-dimer of 2.38. VQ scan ruled out PE. Patient states she has not missed any doses of eliquis. 7. Chronic atrial fibrillation. Continue eliquis 5 mg twice daily and Lopressor. 8. Transaminitis possibly related to heart failure with underlying liver disease, Matthews. Recheck liver function tests in the morning. Hold Lopid and Lipitor. A azithromycin and ceftriaxone discontinued. Abdominal ultrasound, hepatitis panel, GI consult. Eliquis also discontinued. 9. Multiorgan failure secondary to heart failure with ejection fraction of 20- 25%, acute kidney injury, acute liver failure, elevated troponins. 10. Nausea and vomiting possibly related to heart failure, liver congestion, history of Matthews. Continue Zofran as needed for nausea, Protonix 40 mg IV twice daily. Consult with Dr. Valentin. Patient is currently on full liquid diet. 11. Borderline diabetes. Patient will be started on NovoLog scale before meals and at bedtime, hemoglobin A1c. 12. Obstructive sleep apnea on CPAP. 13. Hypothyroidism. Continue Tapazole 5 mg daily. Check for TSH and free T4. 14. DVT prophylaxis. 15. GI prophylaxis. Protonix. 16. Urinary retention. Silveira catheter placed. 17. COVID-19 infection not present. 18. Dyslipidemia. Hold Lopid 600 mg twice daily. 19. CODE STATUS full code. This was confirmed with patient's son. Prognosis guarded. Discharge plan: Anticipate need for subacute rehab. Impression and plan of care have been directed as dictated by the signing physician. Alee Wang nurse practitioner acting as scribe for signing physician.
[2019-10-28 11:36] LABS: Glucose,Whole Blood 130 mg/dL (75-99)
--- NOTE | 2019-10-28 11:54 | P.PN ---
Subjective Progress Note Date: 10/28/19 Principal diagnosis: Cough, dyspnea, pleural effusion This is a 74-year-old female with history of multiple medical problems including breast cancer and previous right-sided mastectomy, obstructive sleep apnea syndrome, chronic atrial fibrillation maintained on Eliquis and on beta blockers, hypertension, patient presented to the hospital on 10/24/19, complaining of few days' history of increased shortness of breath, and vague abdominal pain. Workup included CT of the abdomen and pelvis, and it showed moderate cardiomegaly, moderate pleural effusions, and atelectasis. It also showed abdominal ascites, this most likely correlated with chronic congestive heart failure. Chest x-ray also showed evidence of pleural effusions and consistent with congestive heart failure. VQ scan showed low to intermediate probability of pulmonary embolism, chest x-ray today showed slight improvement with her congestive heart failure, and hardly any right-sided pleural effusion but she c ontinues to have a small left pleural effusion. Repeat echocardiogram showed severe LV dysfunction with ejection fraction of 20%. Considering the pleural effusion, I was asked to see the patient on consultation. Patient seems to be responding well to diuretics so far, hence I have no plans to perform thoracentesis unless the patient shows worsening pleural effusion and no response to diuretics. On 10/27/2019 patient seen in follow-up on selective care unit. Patient is still producing very limited amount of urine, only 310 mL of urine in the last 24 hours and the patient did receive Lasix challenge per nephrology. She is lethargic on today's exam, but arousable, she is mumbling, 2 L of oxygen and the pulse ox of 94-96%, she's been afebrile, blood pressures 97/63. Lung sounds are diminished bilaterally. So far blood and urine cultures have shown no growth. Her renal profile is worsening, with BUN up to 67 and creatinine at 3.28, nephrology is following, her liver enzymes jumped to 3251 from 55 on 10/24/2019, ALT is 1119, and alkaline phosphatase is 233, ammonia level is 44. Abdomen is soft, nontender. Urinalysis was negative for any sign of infection, abdominal ultrasound showed prominence of the common bile duct that could be related to postcholecystectomy change. Echocardiogram showed severely impaired left ventricle systolic function with an EF of 20-25%, mild mitral regurg, moderate tricuspid regurg, IVC is dilated with no significant inspiratory collapse with e stimated right atrial pressure of greater than 20 mmHg. Per nephrology and cardiology patient will be started on dobutamine and Lasix drip in view of worsening renal function, cardiorenal syndrome. From pulmonary perspective bilateral pleural effusions were too small for drainage The patient was seen today 10/28/2019 in follow-up on the selective care unit. She is currently resting fairly comfortably in bed. She is difficult to arouse. Computed tomography scan of the brain revealed mild age-related atrophy. She is maintaining good O2 saturations in the mid 90s on 2 L/m per nasal cannula. She's afebrile. Blood and urine cultures reveal no growth. White count 15.5. Hemoglobin 12.2. INR 2.0. Sodium 140. Potassium 3.7. Creatinine 3.67. AST 2718, ALT 1246, ammonia level 44. She remains on dobutamine at 2.5 mcg/kg/m. Objective - Vital Signs Vital signs: Vital Signs Temp 98.8 F 10/28/19 08:00 Pulse 90 10/28/19 08:00 Resp 10 L 10/28/19 08:00 BP 94/56 10/28/19 08:00 Pulse Ox 96 10/28/19 04:00 Intake & Output 10/27/19 10/28/19 10/28/19 18:59 06:59 18:59 Intake Total 227.36 Output Total 20 550 500 Balance -20 -322.64 -500 Weight 83.5 kg Intake: IV 80 Furosemide 100 mg In 80 Sodium Chloride 0.9% 90 ml @ 10 MG/HR 10 mls/hr IV .Q10H [facility] Rx#: [id number] Intake, IV Titration 147.36 Amount DOBUTamine DRIP 500 mg In 47.36 Dextrose/Water 1 250ml. bag @ 2.5 MCG/KG/MIN 5. 925 mls/hr IV .Q24H [facility] Rx#:[id number] Furosemide 100 mg In 100 Sodium Chloride 0.9% 90 ml @ 10 MG/HR 10 mls/hr IV .Q10H [facility] Rx#: [id number] Output: Urine 20 550 500 Other: Voiding Method Indwelling Catheter Indwelling Catheter Indwelling Catheter - Exam GENERAL EXAM: Lethargic, chronically ill-looking, arousable to verbal stimulation, 74-year-old female patient on 2 L of oxygen the pulse ox of 96% comfortable in no apparent distress. HEAD: Normocephalic/atraumatic. EYES: Normal reaction of pupils, equal size. Conjunctiva pink, sclera white. NOSE: Clear with pink turbinates. THROAT: No erythema or exudates. NECK: No masses, no JVD, no thyroid enlargement, no adenopathy. CHEST: No chest wall deformity. Symmetrical expansion. LUNGS: Equal air entry with crackles in the bilateral posterior bases CVS: Regular rate and rhythm, normal S1 and S2, no gallops, no murmurs, no rubs ABDOMEN: Soft, nontender. No hepatosplenomegaly, normal bowel sounds, no guarding or rigidity. EXTREMITIES: No clubbing, no edema, no cyanosis, 2+ pulses and upper and lower extremities. MUSCULOSKELETAL: Muscle strength and tone normal. SPINE: No scoliosis or deformity SKIN: No rashes CENTRAL NERVOUS SYSTEM: Drowsy. No focal deficits, tone is normal in all 4 extremities. - Labs CBC & Chem 7: 10/28/19 05:58 10/28/19 05:58 Labs: Abnormal Lab Results - Last 24 Hours (Table) 10/27/19 10/27/19 10/28/19 Range/Units 16:49 20:29 05:58 WBC 15.5 H (3.8-10.6) k/uL PT (9.0-12.0) sec INR (<1.2) Carbon Dioxide (22-30) mmol/L BUN (7-17) mg/dL Creatinine (0.52-1.04) mg/dL Glucose (74-99) mg/dL POC Glucose (mg/dL) 124 H 119 H (75-99) mg/dL Calcium (8.4-10.2) mg/dL AST (14-36) U/L ALT (4-34) U/L Alkaline Phosphatase (38-126) U/L Albumin (3.5-5.0) g/dL 10/28/19 10/28/19 10/28/19 Range/Units 05:58 05:58 06:17 WBC (3.8-10.6) k/uL PT 19.5 H (9.0-12.0) sec INR 2.0 H (<1.2) Carbon Dioxide 17 L (22-30) mmol/L BUN 85 H (7-17) mg/dL Creatinine 3.67 H (0.52-1.04) mg/dL Glucose 125 H (74-99) mg/dL POC Glucose (mg/dL) 132 H (75-99) mg/dL Calcium 7.7 L (8.4-10.2) mg/dL AST 2718 H (14-36) U/L ALT 1246 H (4-34) U/L Alkaline Phosphatase 219 H (38-126) U/L Albumin 3.4 L (3.5-5.0) g/dL 10/28/19 Range/Units 11:30 WBC (3.8-10.6) k/uL PT (9.0-12.0) sec INR (<1.2) Carbon Dioxide (22-30) mmol/L BUN (7-17) mg/dL Creatinine (0.52-1.04) mg/dL Glucose (74-99) mg/dL POC Glucose (mg/dL) 130 H (75-99) mg/dL Calcium (8.4-10.2) mg/dL AST (14-36) U/L ALT (4-34) U/L Alkaline Phosphatase (38-126) U/L Albumin (3.5-5.0) g/dL Microbiology - Last 24 Hours (Table) 10/25/19 12:36 Blood Culture - Preliminary Blood No Growth after 48 hours 10/25/19 12:25 Urine Culture - Final Urine,Catheterized Assessment and Plan Assessment: Acute on chronic systolic congestive heart failure with pleural effusions and ascites. Repeat echocardiogram showed worsening LV function. Possible non-ST elevation myocardial infarction. Acute on chronic kidney injury, patient is known to have history of chronic kidney disease stage II, I suspect we may be dealing with a cardiorenal syndrome. No clear-cut evidence of pneumonia based on chest x-ray and based on the clinical history. Nondiagnostic VQ scan, but clinically the patient does not have pulmonary embolism. Chronic atrial fibrillation. Patient is maintained on anti-GERD ablation therapy and beta blockers. Dyslipidemia. Obstructive sleep apnea syndrome on home CPAP. History of hyperthyroidism, maintained on Tapazole. Acute elevation of the liver enzymes, likely related to hypoperfusion due to severe cardiomyopathy and acute exacerbation of systolic CHF Plan: The patient was seen and evaluated by Dr. Koroma Labs reviewed Continue the current medications Poor prognosis, remains a full code Son is at the bedside Probable subacute rehab upon discharge I, the cosigning physician, performed a history & physical examination of the pa debbie. Lungs sounds with crackles in bilateral bases Maintaining good O2 saturations in the 90s on 2 L/m per nasal cannula. I discussed the assessment and plan of care with my nurse practitioner, Kathryn Roy. I attest to the above note as dictated by her.
[2019-10-28] MEDS: LACTULOSE 20 GM/30 ML CUP PO SCH ×3 (13:27→21:35)
--- NOTE | 2019-10-28 14:01 | P.PN ---
Subjective Progress Note Date: 10/28/19 This is a pleasant 74-year-old female with a history of hypertension, obstructive sleep apnea, dyslipidemia, breast cancer, CHF and atrial fibrillation who presented with complaints of nausea and vomiting. Patient remains quite drowsy and is a poor historian. HPI and history were obtained mostly from the chart. Chest x-ray on admission did show pulmonary vascular congestion with a large hiatal hernia. EKG showed atrial fibrillation with left bundle branch block. CT of the abdomen and pelvis showed moderate bilateral pleural effusions with bibasilar pulmonary infiltrates and atelectasis, abdomina l ascites. NT proBNP is elevated at 19,000. She's been on IV Lasix 40 mg by mouth every 8 hours. Labs this morning show significant increase in her BUN and creatinine which yesterday were 27 and 1.29 and this morning were 48 and 2.2. At the time of my examination, patient is resting comfortably in bed. Again she is quite drowsy. She does deny complaints of nausea or vomiting. Has no complaints of shortness of breath. Her only complaint at this time is of feeling tired. 10/27/2019 The patient was seen and examined resting in bed. She is lethargic this morning. Opens eyes to verbal stimuli but does not respond verbally. Echocardiogram showed severely impaired LV systolic function with an ejection fraction of 20-25% with mildly enlarged RV, mild AR with possible bicuspid aortic valve, moderate TR and mild pulmonary hypertension. Labs show further elevation of BUN and creatinine at 67 and 3.28, INR of 2.4 and elevated LFTs with an AST of 3251, ALT 1119 and alkaline phosphatase of 233, ammonia level 44 10/28/2019 Patient was seen and examined this morning. Patient's mental status continues to decline. She is quite lethargic and difficult to arouse. Labs this morning showed a white blood cell count 15,500, INR 2.0, BUN increasing to 85 and creatinine increasing at 3.67. LFTs relatively stable with an AST of 2718, ALT 1246 and alkaline phosphatase of 219. She was seen by GI yesterday who feels elevation of liver enzymes are related to ischemic hepatitis secondary to h ypoperfusion. Patient is being maintained on dobutamine at 2.5 g/kg/min and Lasix drip at 10 mg an hour. Patient is being followed by nephrology who is anticipating the need for dialysis. She remains in atrial fibrillation on the monitor with a controlled ventricular response. Occasional brief episodes of nonsustained ventricular tachycardia. She remains on metoprolol tartrate 12.5 mg by mouth twice a day. Objective - Vital Signs Vital signs: Vital Signs Temp 98.8 F 10/28/19 08:00 Pulse 90 10/28/19 08:00 Resp 10 L 10/28/19 08:00 BP 94/56 10/28/19 08:00 Pulse Ox 96 10/28/19 04:00 Intake & Output 10/27/19 10/28/19 10/28/19 18:59 06:59 18:59 Intake Total 227.36 Output Total 20 550 500 Balance -20 -322.64 -500 Weight 83.5 kg Intake: IV 80 Furosemide 100 mg In 80 Sodium Chloride 0.9% 90 ml @ 10 MG/HR 10 mls/hr IV .Q10H [facility] Rx#: [id number] Intake, IV Titration 147.36 Amount DOBUTamine DRIP 500 mg In 47.36 Dextrose/Water 1 250ml. bag @ 2.5 MCG/KG/MIN 5. 925 mls/hr IV .Q24H [facility] Rx#:[id number] Furosemide 100 mg In 100 Sodium Chloride 0.9% 90 ml @ 10 MG/HR 10 mls/hr IV .Q10H [facility] Rx#: [id number] Output: Urine 20 550 500 Other: Voiding Method Indwelling Catheter Indwelling Catheter Indwelling Catheter - Exam PHYSICAL EXAMINATION: HEENT: Head is atraumatic, normocephalic. Pupils equal, round. Neck is supple. There is no elevated jugular venous pressure. HEART EXAMINATION: Heart sounds irregularly irregular, S1 and S2 with a systolic murmur CHEST EXAMINATION: Lungs reveal diminished air entry bilateral bases faint crackles at the right base. No chest wall tenderness is noted on palpation or with deep breathing. ABDOMEN: Soft, nontender, mildly distended. Bowel sounds are heard. No organomegaly noted. EXTREMITIES: 2+ peripheral pulses with evidence of trace to mild peripheral edema and no calf tenderness noted. NEUROLOGIC patient is lethargic, difficult to arouse . - Labs CBC & Chem 7: 10/28/19 05:58 10/28/19 05:58 Labs: Abnormal Lab Results - Last 24 Hours (Table) 10/27/19 10/27/19 10/28/19 Range/Units 16:49 20:29 05:58 WBC 15.5 H (3.8-10.6) k/uL PT (9.0-12.0) sec INR (<1.2) Carbon Dioxide (22-30) mmol/L BUN (7-17) mg/dL Creatinine (0.52-1.04) mg/dL Glucose (74-99) mg/dL POC Glucose (mg/dL) 124 H 119 H (75-99) mg/dL Calcium (8.4-10.2) mg/dL AST (14-36) U/L ALT (4-34) U/L Alkaline Phosphatase (38-126) U/L Albumin (3.5-5.0) g/dL 10/28/19 10/28/19 10/28/19 Range/Units 05:58 05:58 06:17 WBC (3.8-10.6) k/uL PT 19.5 H (9.0-12.0) sec INR 2.0 H (<1.2) Carbon Dioxide 17 L (22-30) mmol/L BUN 85 H (7-17) mg/dL Creatinine 3.67 H (0.52-1.04) mg/dL Glucose 125 H (74-99) mg/dL POC Glucose (mg/dL) 132 H (75-99) mg/dL Calcium 7.7 L (8.4-10.2) mg/dL AST 2718 H (14-36) U/L ALT 1246 H (4-34) U/L Alkaline Phosphatase 219 H (38-126) U/L Albumin 3.4 L (3.5-5.0) g/dL 10/28/19 Range/Units 11:30 WBC (3.8-10.6) k/uL PT (9.0-12.0) sec INR (<1.2) Carbon Dioxide (22-30) mmol/L BUN (7-17) mg/dL Creatinine (0.52-1.04) mg/dL Glucose (74-99) mg/dL POC Glucose (mg/dL) 130 H (75-99) mg/dL Calcium (8.4-10.2) mg/dL AST (14-36) U/L ALT (4-34) U/L Alkaline Phosphatase (38-126) U/L Albumin (3.5-5.0) g/dL Microbiology - Last 24 Hours (Table) 10/25/19 12:36 Blood Culture - Preliminary Blood No Growth after 48 hours 10/25/19 12:25 Urine Culture - Final Urine,Catheterized Assessment and Plan Assessment: #1 multisystem organ failure with evidence of CHF, EF 20-25%, SHERIDAN on CKD, and acute liver failure, #2 acute on chronic systolic congestive heart failure with severely impaired LV systolic function with EF 20-25% #3 minimally abnormal troponins, not consistent with acute coronary syndrome however underlying ischemia cannot be ruled out at this time #4 persistent atrial fibrillation, INR 2.0, anticoagulation is on hold at this time #5 hypertension #6 hyperlipidemia #7 obstructive sleep apnea #8 abnormal d-dimer with VQ scan showing low and of intermediate probability for PE #9 acute kidney injury on chronic kidney disease, may be dealing with cardiorenal syndrome, being followed by nephrology. #10 acute liver failure Plan: From cardiology's perspective, we will put parameters on metoprolol to hold for systolic blood pressure less than 100. Unfortunately the patient's prognosis is guarded. Await further recommendations from nephrology. We will continue to follow the patient provide further recommendations accordingly. SHOT BAGGER note has been reviewed, I agree with a documented findings and plan of care. Patient was seen and examined.
--- NOTE | 2019-10-28 14:50 | P.PN ---
Subjective Patient is seen in follow-up for acute kidney injury. Renal function continues to worsen. Urine output 450 mL overnight and 500 mL so far today. She has a Silveira catheter. Remains edematous. Also no improvement in her mentation. Echocardiogram revealed ejection fraction of 20-25%. Currently maintained on dobutamine and Lasix drip. Vital signs are stable. Blood pressure on the lower side. General: The patient appeared well nourished and normally developed. HEENT: Head exam is unremarkable. Neck is without jugular venous distension. LUNGS: Lungs are clear to auscultation and percussion. Breath sounds decreased. HEART: Rate and Rhythm are regular. ABDOMEN: Soft, nontender. EXTREMITITES: 1+ edema. Objective - Vital Signs Vital signs: Vital Signs Temp 98.8 F 10/28/19 08:00 Pulse 90 10/28/19 08:00 Resp 10 L 10/28/19 08:00 BP 94/56 10/28/19 08:00 Pulse Ox 96 10/28/19 04:00 Intake & Output 10/27/19 10/28/19 10/28/19 18:59 06:59 18:59 Intake Total 227.36 Output Total 20 550 500 Balance -20 -322.64 -500 Weight 83.5 kg Intake: IV 80 Furosemide 100 mg In 80 Sodium Chloride 0.9% 90 ml @ 10 MG/HR 10 mls/hr IV .Q10H [facility] Rx#: [id number] Intake, IV Titration 147.36 Amount DOBUTamine DRIP 500 mg In 47.36 Dextrose/Water 1 250ml. bag @ 2.5 MCG/KG/MIN 5. 925 mls/hr IV .Q24H [facility] Rx#:[id number] Furosemide 100 mg In 100 Sodium Chloride 0.9% 90 ml @ 10 MG/HR 10 mls/hr IV .Q10H [facility] Rx#: [id number] Output: Urine 20 550 500 Other: Voiding Method Indwelling Catheter Indwelling Catheter Indwelling Catheter - Labs CBC & Chem 7: 10/28/19 05:58 10/28/19 05:58 Labs: Abnormal Lab Results - Last 24 Hours (Table) 10/27/19 10/27/19 10/28/19 Range/Units 16:49 20:29 05:58 WBC 15.5 H (3.8-10.6) k/uL PT (9.0-12.0) sec INR (<1.2) Carbon Dioxide (22-30) mmol/L BUN (7-17) mg/dL Creatinine (0.52-1.04) mg/dL Glucose (74-99) mg/dL POC Glucose (mg/dL) 124 H 119 H (75-99) mg/dL Calcium (8.4-10.2) mg/dL AST (14-36) U/L ALT (4-34) U/L Alkaline Phosphatase (38-126) U/L Albumin (3.5-5.0) g/dL 10/28/19 10/28/19 10/28/19 Range/Units 05:58 05:58 06:17 WBC (3.8-10.6) k/uL PT 19.5 H (9.0-12.0) sec INR 2.0 H (<1.2) Carbon Dioxide 17 L (22-30) mmol/L BUN 85 H (7-17) mg/dL Creatinine 3.67 H (0.52-1.04) mg/dL Glucose 125 H (74-99) mg/dL POC Glucose (mg/dL) 132 H (75-99) mg/dL Calcium 7.7 L (8.4-10.2) mg/dL AST 2718 H (14-36) U/L ALT 1246 H (4-34) U/L Alkaline Phosphatase 219 H (38-126) U/L Albumin 3.4 L (3.5-5.0) g/dL 10/28/19 Range/Units 11:30 WBC (3.8-10.6) k/uL PT (9.0-12.0) sec INR (<1.2) Carbon Dioxide (22-30) mmol/L BUN (7-17) mg/dL Creatinine (0.52-1.04) mg/dL Glucose (74-99) mg/dL POC Glucose (mg/dL) 130 H (75-99) mg/dL Calcium (8.4-10.2) mg/dL AST (14-36) U/L ALT (4-34) U/L Alkaline Phosphatase (38-126) U/L Albumin (3.5-5.0) g/dL Microbiology - Last 24 Hours (Table) 10/25/19 12:36 Blood Culture - Preliminary Blood No Growth after 48 hours Assessment and Plan Plan: Assessment: 1. Acute kidney injury secondary to ATN secondary to cardiorenal syndrome. Creatinine 3.67 today. No hydronephrosis noted on CAT scan. Creatinine was 0.74 in June 2018. 2. Volume overload. 3. Metabolic acidosis secondary to acute kidney injury, NS, and lactic acidosis. Maintained on oral sodium bicarbonate. Stable. 4. Possible ischemic bowel. Surgery consulted. LDH mildly elevated. 5. Shock liver secondary to hypoperfusion. GI consulted. 6. Acute on chronic systolic CHF with ejection fraction of 20-25% with moderate tricuspid regurgitation. Plan: Due to volume overload and worsening renal function and acidosis, I will initiate renal replacement therapy once consent obtained from the family. Plan for first hemodialysis treatment today and second treatment tomorrow. Maintain dobutamine and Lasix drip - hold during dialysis. Continue to monitor renal function and urine output closely. Case discussed with cardiology.
[2019-10-28] MEDS: DOBUTamine DRIP 500 MG in DEXTROSE/WATER 1 250ML.BAG IV SCH (15:09)
--- NOTE | 2019-10-28 15:30 | P.PN ---
Progress Note - Text Progress Note Date: 10/28/19 The patient is resting in bed. She is difficult to arouse. She really has no complaints. On exam vital signs appear stable. Her abdomen was soft. There is some minimal tenderness. There is no rebound or guarding. Patient's liver enzymes are in the 2700 range now. Elevated LFTs related to shock liver and hypoperfusion. No surgical intervention is planned at this point. Patient be managed medically.
[2019-10-28 17:28] LABS: Glucose,Whole Blood 159 mg/dL (75-99)
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
--- NOTE | 2019-10-28 17:39 | P.PCN ---
Description of Procedure: Procedure note preoperative diagnoses is acute chronic renal failure, volume overload, congestive heart failure, Procedure right groin was prepped and draped applied in standard manner, 1% lidocaine for to the right groin area. After that ultrasound-guided micropuncture introducer right common femoral vein and 4-Pashto dilator advanced on the top of guidewire then replaced a regular guidewire and dilator were advanced on the top of the guidewire we placed a dialysis catheter on the top of guidewire without any resistance. Flushed with heparin saline and Hep-Lock and secured with 3-0 nylon dressing applied patient tolerated the procedure well
[2019-10-28 21:00] LABS: Glucose,Whole Blood 133 mg/dL (75-99)
[2019-10-28] MEDS: PANTOPRAZOLE 40 MG TABLET PO SCH (21:35)
--- NOTE | 2019-10-29 03:45 | PN ---
PROGRESS NOTE DATE OF DICTATION: 10/28/2019 Patient is a 74-year-old pleasant white female admitted to the hospital with acute congestive heart failure, shortness of breath, not feeling well. She was noted to have acute elevation of serum transaminases and she was seen on consultation yesterday. She remains very lethargic and opening her eyes to verbal stimuli. As per the nursing staff, no acute events noted overnight. She did have a CT of the head done that showed age-related atrophy. PHYSICAL EXAMINATION: Vital signs show a blood pressure 94/66, pulse rate 90, temperature 98.8. HEENT EXAMINATION: Unremarkable. Conjunctivae pink. Sclerae anicteric. Oral cavity, no lesions. NECK: No JVD or lymph node enlargement. CHEST: Clear to auscultation. HEART: Regular rate and rhythm. ABDOMEN: Soft. It was nontender, nondistended. Bowel sounds are positive. No organomegaly. No ascites felt. EXTREMITIES: No pedal edema. SKIN: No rashes. NEURO: She is very lethargic. LABS: Labs from today: BUN increased to 85, creatinine 3.65. AST improved to 2718 and ALT is down to 1246, alkaline phosphatase 209. Bilirubin is normal. IMPRESSION: 1. Acute elevation of serum transaminases consistent with acute hepatocellular injury from hypoperfusion related to ischemic hepatitis from hemodynamic instability. LFTs are gradually improving. 2. Acute kidney injury/acute tubular necrosis. Nephrology following the patient closely. 3. Altered mental status possible metabolic encephalopathy. 4. Slightly elevated troponins. 5. Congestive heart failure. 6. History of chronic atrial fibrillation. RECOMMENDATION: 1. In regards to the LFTs, continue to monitor them closely. Hepatitis serologies for A, B and C have been negative. 2. Continue with symptomatic and supportive care. 3. Monitor the rest of the labs closely. 4. Avoid hepatotoxic medications. 5. We will follow with you closely. Thank you for this consultation. MMODL / IJN: [id number] /
[2019-10-29 06:17] LABS: Glucose,Whole Blood 111 mg/dL (75-99)
[2019-10-29 06:34] LABS: HCT 37.7 % (34.0-46.0); HGB 11.8 gm/dL (11.4-16.0); Hypochromasia Slight; MCHC 31.3 g/dL (31.0-37.0); MCV 89.6 fL (80.0-100.0); Mean Platelet Volume 10.7; Platelet Count 202 k/uL (150-450); RBC 4.21 m/uL (3.80-5.40); RDW 13.4 % (11.5-15.5); WBC 13.5 k/uL (3.8-10.6)
[2019-10-29 06:46] LABS: INR 1.5 (<1.2); Prothrombin Time 14.6 sec (9.0-12.0)
[2019-10-29] MEDS: FUROSEMIDE 100 MG in SODIUM CHLORIDE 0.9% 90 ML IV SCH ×2 (06:51→17:26)
[2019-10-29] MEDS: INSULIN ASPART (NovoLOG) 100 UNIT/ML VIAL SQ SCH ×4 (06:52→21:10)
[2019-10-29 07:06] LABS: Albumin 3.1 g/dL (3.5-5.0); Calcium 8.1 mg/dL (8.4-10.2); Magnesium 1.9 mg/dL (1.6-2.3); Phosphorus 5.2 mg/dL (2.5-4.5); Potassium 2.9 mmol/L (3.5-5.1); Total Bilirubin 0.6 mg/dL (0.2-1.3)
--- NOTE | 2019-10-29 10:12 | P.PN ---
Subjective Progress Note Date: 10/29/19 This is a 74-year-old female patient of Dr. Nelson with past medical history of breast cancer post right sided mastectomy, hyperglycemia, hyperthyroidism, obstructive sleep apnea, chronic atrial fibrillation on eliquis, hypertension, hyperlipidemia. Patient complains of feeling tired, nauseated and short of breath and cough. She states she has had nausea and vomiting along with since weekend. She denies having any fever or chills. Lab work revealed WBC 13.6, hemoglobin 14.3, platelet count 372. Sodium 141, potassium 3.7, chloride 109, CO2 17, BUN 24 and creatinine 1.21. B lood sugar was 149. AST of 55 and alkaline phosphatase 188, ALT 29. Lipase 386 INR 1.2. Initial lactic acid 3.3. Troponin 0.035. ProBNP 9000. EKG was atrial fibrillation with a rate of 90. Chest x-ray reveals congestive heart failure with pleural fluid that appears new. Large hiatal hernia unchanged. CAT scan of the abdomen and pelvis revealed moderate cardiomegaly. Bilateral moderate pleural effusions and basilar pulmonary infiltrates and atelectasis. Abdominal ascites. This could be related to chronic heart failure. Ascites and pleural fluid are new compared to old exam. 10/25: Patient continues to have shortness of breath and speech is slow. She remains slightly confused but oriented 3. Patient is not back to her baseline. Her abdomen is better. She denies abdominal pain. She is on a full liquid diet. Consult with Dr. Valentin added her concern for ischemic bowel. Consult also added for Dr. Koroma for pleural effusion. 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 Silveira catheter was placed for urinary retention. VQ scan is low end of intermediate probability for pulmonary embolism. Patient has been seen in follow-up by cardiology for possible non-ST elevated myocardial infarction with recommendations to continue current medication and continue diuretics. Echocardiogram pending. Patient is followed by nephrology and seen yesterday started on a bicarb drip and discontinued Lasix. Today, oral sodium bicarb was added and Lasix 80 mg IV once. Repeat chest x-ray was ordered. Patient has been afebrile, heart rate 88, blood pressure 105/69, pulse ox 94% on 2 L nasal cannula. Repeat blood work reveals sodium 142, potassium 4.7, chloride 107, CO2 17, BUN 48 creatinine 2.20. Blood sugars are running between 96 and 145. Urinalysis cloudy, nitrate and leukoesterase negative. Acetone was negative, LDH 762. Serum osmolality 305. 10/26: Patient have increasing confusion today with significantly elevated liver function tests with AST of 3251, ALT 1119, alkaline phosphatase 233. We have added and lab work for ammonia level which came back 44 and INR of 2.4. Eliquis discontinued. Consult with GI has been added. Concern for drug induced hepatitis and azithromycin and ceftriaxone will be discontinued. Patient is currently on ceftriaxone only. Acute hepatitis panel and abdominal ultrasound ordered. Patient has been started on dobutamine drip and Lasix drip by nephrology. Echocardiogram reveals EF of 20-25%, mild aortic regurgitation, mild mitral regurgitation, moderate tricuspid regurgitation, mild pulmonary hypertension. Chest x-ray from yesterday reveals stable bilateral infiltrate and pleural effusion. Correlate for venous congestion and CHF may be slightly improved. Underlying pneumonia not excluded. Discussed case with Dr. Valentin and he feels that bowel symptoms and elevated liver function tests are related to ischemic bowel secondary to hypoperfusion from heart failure. 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 Patient is followed by multiple consultants. 10/27: The patient's mental status continues to decline. Patient is unable to take any oral intake. She did take small amount of liquid this morning for her medication and was aspirating. She had worsening AST 2718, ALT 1246, phosphatase 219, total bilirubin is 0.6, INR 2.0. WBC 15.5, hemoglobin 12.2. Renal function continues to worsen as well with a BUN of 85 and creatinine 3.67. Patient is currently on dobutamine and Lasix drips. She has had runs of V. tach 1-2 times per day for the past 2 days. She has been afebrile, heart rate 90, blood pressure 94/56, pulse ox 96% on 2 L. 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 Patient's oral medications have been either discontinued or changed to IV. Abdominal ultrasound revealed findings due to hepatocellular disease. Prominence of the common bile duct may be due to patient's age and postcholecystectomy change. Exam limited. The patient was seen by GI yesterday and findings consistent with hypoperfusion causing ischemic hepatitis CAT scan of the brain ordered this morning which revealed mild age-related atrophy. Contacted patient's son Faraz and given up date regarding her condition and worsening condition and prognosis. He and his sister care will come up to see the patient. Confirm the patient is a full code . 10/28: Patient's mental status is improving today. Appears patient may be able to swallow and follow commands, speech therapy will be added. Consult for neurology will be added. Yesterday, Dr. Perales placed a right groin dialysis catheter. Patient underwent hemodialysis yesterday and scheduled for repeat dialysis today. Dobutamine and Lasix drips on hold this time. She has been afebrile, heart rate 77, blood pressure 114/53 and pulse ox 96% on 2 L nasal cannula. Repeat blood work today reveals improvement of her liver function tests with total bilirubin 0.6, AST 1214, ALT 949, alkaline phosphatase 194, INR 1.5. Renal function is improved with BUN of 67 creatinine 2.5. Potassium 2.9. WBC 15.5, hemoglobin 11.8. Blood sugars are running between 111 159. Patient is currently on scale insulin only due to no oral intake. Objective - Vital Signs Vital signs: Vital Signs Temp 97.4 F L 10/29/19 04:00 Pulse 77 10/29/19 04:00 Resp 14 10/29/19 04:00 BP 114/53 10/29/19 04:00 Pulse Ox 96 10/29/19 04:00 Intake & Output 10/28/19 10/29/19 10/29/19 18:59 06:59 18:59 Intake Total 235.09 Output Total 1100 4600 800 Balance -864.91 -4600 -800 Weight 77 kg Intake: Intake, IV Titration 235.09 Amount DOBUTamine DRIP 500 mg In 135.09 Dextrose/Water 1 250ml. bag @ 2.5 MCG/KG/MIN 5. 925 mls/hr IV .Q24H [facility] Rx#:[id number] Furosemide 100 mg In 100 Sodium Chloride 0.9% 90 ml @ 10 MG/HR 10 mls/hr IV .Q10H [facility] Rx#: [id number] Output: Urine 1100 3600 800 Uretheral (Silveira) 1400 Hemodialysis 1000 Other: Voiding Method Indwelling Catheter Indwelling Catheter - Exam Review of Systems Unable to obtain due to mental status changes Physical Examination Gen: This is a 74-year-old female. Patient is resting in bed but appears fatigued. Less confused today. HEENT: Head is atraumatic, normocephalic. Pupils equal, round. Sclerae is anicteric. NECK: Supple. No JVD. No lymphadenopathy. No thyromegaly. LUNGS: Clear to auscultation. No wheezes or rhonchi. No intercostal retractions. HEART: Irregularly irregular rate and rhythm. Systolic murmur. ABDOMEN: Soft. Bowel sounds are present. No masses. No tenderness. No right upper quadrant or epigastric tenderness noted. EXTREMITIES: 1+ pedal edema. No calf tenderness. NEUROLOGICAL: Patient is awake, oriented to person,. Significant weakness noted. - Labs CBC & Chem 7: 10/29/19 05:44 10/29/19 05:44 Labs: Abnormal Lab Results - Last 24 Hours (Table) 10/28/19 10/28/19 10/28/19 Range/Units 05:58 05:58 11:30 WBC 15.5 H (3.8-10.6) k/uL PT (9.0-12.0) sec INR (<1.2) Potassium (3.5-5.1) mmol/L BUN (7-17) mg/dL Creatinine (0.52-1.04) mg/dL Glucose (74-99) mg/dL POC Glucose (mg/dL) 130 H (75-99) mg/dL Calcium (8.4-10.2) mg/dL Phosphorus (2.5-4.5) mg/dL AST 2718 H (14-36) U/L ALT (4-34) U/L Alkaline Phosphatase (38-126) U/L Total Protein (6.3-8.2) g/dL Albumin (3.5-5.0) g/dL 10/28/19 10/28/19 10/29/19 Range/Units 17:08 20:56 05:44 WBC (3.8-10.6) k/uL PT 14.6 H (9.0-12.0) sec INR 1.5 H (<1.2) Potassium (3.5-5.1) mmol/L BUN (7-17) mg/dL Creatinine (0.52-1.04) mg/dL Glucose (74-99) mg/dL POC Glucose (mg/dL) 159 H 133 H (75-99) mg/dL Calcium (8.4-10.2) mg/dL Phosphorus (2.5-4.5) mg/dL AST (14-36) U/L ALT (4-34) U/L Alkaline Phosphatase (38-126) U/L Total Protein (6.3-8.2) g/dL Albumin (3.5-5.0) g/dL 10/29/19 10/29/19 10/29/19 Range/Units 05:44 05:44 06:15 WBC 13.5 H (3.8-10.6) k/uL PT (9.0-12.0) sec INR (<1.2) Potassium 2.9 L (3.5-5.1) mmol/L BUN 67 H (7-17) mg/dL Creatinine 2.50 H (0.52-1.04) mg/dL Glucose 108 H (74-99) mg/dL POC Glucose (mg/dL) 111 H (75-99) mg/dL Calcium 8.1 L (8.4-10.2) mg/dL Phosphorus 5.2 H (2.5-4.5) mg/dL AST 1214 H (14-36) U/L ALT 949 H (4-34) U/L Alkaline Phosphatase 194 H (38-126) U/L Total Protein 6.0 L (6.3-8.2) g/dL Albumin 3.1 L (3.5-5.0) g/dL Microbiology - Last 24 Hours (Table) 10/25/19 12:36 Blood Culture - Preliminary Blood No Growth after 72 hours Assessment and Plan Plan: 1. Acute on chronic systolic heart failure with pleural effusions and ascites. Previous echocardiogram with EF of 40-45 % from June 2018. Repeat echocardiogram reveals EF of 20-25%. Nephrology has started the patient on dobutamine and Lasix drips. Continue Lopressor changed to IV 5 mg mg twice daily. Monitor I&O and daily weights. Consult with Dr. Franci richardson regarding pleural effusions-no plan for thoracentesis. 2. Possible non-ST elevated myocardial infarction. Cardiology consult. Continue Lopressor, discontinue Lipitor 20 mg at bedtime. 3. Acute kidney injury with chronic kidney disease stage II. Nephrology consult appreciated. Patient is status post renal dialysis catheter, hemodialysis started 10/28. Repeat hemodialysis today. 4. Metabolic acidosis secondary to acute kidney injury, normal saline, lactic acidosis. Nephrology consult. 5. Possible pneumonia. Ruled out by pulmonary medicine. Discontinue ceftriaxone and azithromycin. 6. Difficulty breathing with elevated d-dimer of 2.38. VQ scan ruled out PE. Patient states she has not missed any doses of eliquis. 7. Chronic atrial fibrillation. Hold eliquis 5 mg twice daily and continue Lopressor. 8. Transaminitis possibly related to heart failure with underlying liver disease, hepatorenal syndrome. Recheck liver function tests in the morning. Hold Lopid and Lipitor. A azithromycin and ceftriaxone discontinued. GI consult appreciated. Eliquis also discontinued. 9. Multiorgan failure secondary to heart failure with ejection fraction of 20- 25%, acute kidney injury, acute liver failure, elevated troponins. 10. Nausea and vomiting possibly related to heart failure, liver congestion, history of Matthews. Continue Zofran as needed for nausea, Protonix 40 mg IV twice daily. Consult with Dr. Valentin. Patient is currently on full liquid diet. 11. Metabolic encephalopathy (POA). CAT scan of the brain negative. Consult with neurology. 12. Obstructive sleep apnea on CPAP. 13. Hypothyroidism. Continue Tapazole 5 mg daily. Check for TSH and free T4. 14. DVT prophylaxis. Elevated INR. Hold eliquis. 15. GI prophylaxis. Protonix. 16. Urinary retention. Silveira catheter placed. 17. COVID-19 infection not present. 18. Dyslipidemia. Hold Lopid 600 mg twice daily. 19. Borderline diabetes. Patient will be started on NovoLog scale before meals and at bedtime, hemoglobin A1c 6.0. CODE STATUS full code. This was confirmed with patient's son. Prognosis guarded. Discharge plan: Anticipate need for subacute rehab. Impression and plan of care have been directed as dictated by the signing physician. Alee Wang nurse practitioner acting as scribe for signing physician.
--- NOTE | 2019-10-29 10:51 | P.PN ---
Progress Note - Text Progress Note Date: 10/29/19 The patient appears to be more awake today. Encephalopathy is improved. She has no significant complaints. On exam her vital signs appear stable. Abdomen is soft. There is some minimal tenderness or quadrant. Patient's liver function tests improve. They are in the 900 range today. Shock liver related to hypoperfusion from cardiac failure. Patient will be managed medically. No surgical intervention is planned.
[2019-10-29] MEDS ORDERED: POTASSIUM CHLORIDE ER 20 MEQ TAB.ER PO STA (10:58)
--- NOTE | 2019-10-29 10:59 | P.PN ---
Subjective Patient is seen in follow-up for acute kidney injury. She was started on hemodialysis October 27. Tolerated 1 L of ultrafiltration yesterday and trying for 2 L today. Urine output also improved with over 2 L in the last 24 hours. She is maintained on dobutamine as well as Lasix drip. Echocardiogram revealed ejection fraction of 20-25%. Mentation is a little improved. Remains confused. Vital signs are stable. Blood pressure on the lower side. General: The patient appeared well nourished and normally developed. HEENT: Head exam is unremarkable. Neck is without jugular venous distension. LUNGS: Lungs are clear to auscultation and percussion. Breath sounds decreased. HEART: Rate and Rhythm are regular. ABDOMEN: Soft, nontender. EXTREMITITES: 1+ edema. Objective - Vital Signs Vital signs: Vital Signs Temp 97.4 F L 10/29/19 04:00 Pulse 78 10/29/19 08:00 Resp 16 10/29/19 08:00 BP 115/59 10/29/19 08:00 Pulse Ox 96 10/29/19 04:00 Intake & Output 10/28/19 10/29/19 10/29/19 18:59 06:59 18:59 Intake Total 235.09 Output Total 1100 4600 800 Balance -864.91 -4600 -800 Weight 77 kg Intake: Intake, IV Titration 235.09 Amount DOBUTamine DRIP 500 mg In 135.09 Dextrose/Water 1 250ml. bag @ 2.5 MCG/KG/MIN 5. 925 mls/hr IV .Q24H [facility] Rx#:[id number] Furosemide 100 mg In 100 Sodium Chloride 0.9% 90 ml @ 10 MG/HR 10 mls/hr IV .Q10H [facility] Rx#: [id number] Output: Urine 1100 3600 800 Uretheral (Silveira) 1400 Hemodialysis 1000 Other: Voiding Method Indwelling Catheter Indwelling Catheter - Labs CBC & Chem 7: 10/29/19 05:44 10/29/19 05:44 Labs: Abnormal Lab Results - Last 24 Hours (Table) 10/28/19 10/28/19 10/28/19 Range/Units 11:30 17:08 20:56 WBC (3.8-10.6) k/uL PT (9.0-12.0) sec INR (<1.2) Potassium (3.5-5.1) mmol/L BUN (7-17) mg/dL Creatinine (0.52-1.04) mg/dL Glucose (74-99) mg/dL POC Glucose (mg/dL) 130 H 159 H 133 H (75-99) mg/dL Calcium (8.4-10.2) mg/dL Phosphorus (2.5-4.5) mg/dL AST (14-36) U/L ALT (4-34) U/L Alkaline Phosphatase (38-126) U/L Total Protein (6.3-8.2) g/dL Albumin (3.5-5.0) g/dL 10/29/19 10/29/19 10/29/19 Range/Units 05:44 05:44 05:44 WBC 13.5 H (3.8-10.6) k/uL PT 14.6 H (9.0-12.0) sec INR 1.5 H (<1.2) Potassium 2.9 L (3.5-5.1) mmol/L BUN 67 H (7-17) mg/dL Creatinine 2.50 H (0.52-1.04) mg/dL Glucose 108 H (74-99) mg/dL POC Glucose (mg/dL) (75-99) mg/dL Calcium 8.1 L (8.4-10.2) mg/dL Phosphorus 5.2 H (2.5-4.5) mg/dL AST 1214 H (14-36) U/L ALT 949 H (4-34) U/L Alkaline Phosphatase 194 H (38-126) U/L Total Protein 6.0 L (6.3-8.2) g/dL Albumin 3.1 L (3.5-5.0) g/dL 10/29/19 Range/Units 06:15 WBC (3.8-10.6) k/uL PT (9.0-12.0) sec INR (<1.2) Potassium (3.5-5.1) mmol/L BUN (7-17) mg/dL Creatinine (0.52-1.04) mg/dL Glucose (74-99) mg/dL POC Glucose (mg/dL) 111 H (75-99) mg/dL Calcium (8.4-10.2) mg/dL Phosphorus (2.5-4.5) mg/dL AST (14-36) U/L ALT (4-34) U/L Alkaline Phosphatase (38-126) U/L Total Protein (6.3-8.2) g/dL Albumin (3.5-5.0) g/dL Microbiology - Last 24 Hours (Table) 10/25/19 12:36 Blood Culture - Preliminary Blood No Growth after 72 hours Assessment and Plan Plan: Assessment: 1. Acute kidney injury secondary to ATN secondary to cardiorenal syndrome. Creatinine peaked at 3.67 today. No hydronephrosis noted on CAT scan. Creatinine was 0.74 in June 2018. Started on hemodialysis October 27 due to volume overload and uremia. 2. Volume overload. Improving. 3. Metabolic acidosis secondary to acute kidney injury, NS, and lactic acidosis. Maintained on oral sodium bicarbonate. Improved. 4. Possible ischemic bowel. Surgery consulted. LDH mildly elevated. 5. Shock liver secondary to hypoperfusion. GI following. Better. 6. Acute on chronic systolic CHF with ejection fraction of 20-25% with moderate tricuspid regurgitation. 7. Hypokalemia secondary to diuresis. Magnesium normal. Plan: Currently seen while undergoing hemodialysis. Trying for 2 L ultrafiltration today. Maintain dobutamine and Lasix drip - hold during dialysis. Continue to monitor renal function and urine output closely. Continue to assess daily for need for renal replacement therapy. Replace potassium.
--- NOTE | 2019-10-29 11:28 | P.PN ---
Subjective Progress Note Date: 10/29/19 This is a pleasant 74-year-old female with a history of hypertension, obstructive sleep apnea, dyslipidemia, breast cancer, CHF and atrial fibrillation who presented with complaints of nausea and vomiting. Patient remains quite drowsy and is a poor historian. HPI and history were obtained mostly from the chart. Chest x-ray on admission did show pulmonary vascular congestion with a large hiatal hernia. EKG showed atrial fibrillation with left bundle branch block. CT of the abdomen and pelvis showed moderate bilateral pleural effusions with bibasilar pulmonary infiltrates and atelectasis, abdomina l ascites. NT proBNP is elevated at 19,000. She's been on IV Lasix 40 mg by mouth every 8 hours. Labs this morning show significant increase in her BUN and creatinine which yesterday were 27 and 1.29 and this morning were 48 and 2.2. At the time of my examination, patient is resting comfortably in bed. Again she is quite drowsy. She does deny complaints of nausea or vomiting. Has no complaints of shortness of breath. Her only complaint at this time is of feeling tired. 10/27/2019 The patient was seen and examined resting in bed. She is lethargic this morning. Opens eyes to verbal stimuli but does not respond verbally. Echocardiogram showed severely impaired LV systolic function with an ejection fraction of 20-25% with mildly enlarged RV, mild AR with possible bicuspid aortic valve, moderate TR and mild pulmonary hypertension. Labs show further elevation of BUN and creatinine at 67 and 3.28, INR of 2.4 and elevated LFTs with an AST of 3251, ALT 1119 and alkaline phosphatase of 233, ammonia level 44 10/28/2019 Patient was seen and examined this morning. Patient's mental status continues to decline. She is quite lethargic and difficult to arouse. Labs this morning showed a white blood cell count 15,500, INR 2.0, BUN increasing to 85 and creatinine increasing at 3.67. LFTs relatively stable with an AST of 2718, ALT 1246 and alkaline phosphatase of 219. She was seen by GI yesterday who feels elevation of liver enzymes are related to ischemic hepatitis secondary to h ypoperfusion. Patient is being maintained on dobutamine at 2.5 g/kg/min and Lasix drip at 10 mg an hour. Patient is being followed by nephrology who is anticipating the need for dialysis. She remains in atrial fibrillation on the monitor with a controlled ventricular response. Occasional brief episodes of nonsustained ventricular tachycardia. She remains on metoprolol tartrate 12.5 mg by mouth twice a day. 10/29/2019 Patient was seen and examined this morning. Mental status has improved. The patient is awake alert and answering some questions. She underwent placement of a dialysis catheter last night by Dr. Perales. She underwent 2 hour hemodialysis last night and planning for 3 hour ultrafiltration today. At the time of my examination she is currently undergoing hemodialysis. Blood pressure has improved maintaining above 100 mmHg systolic. She is afebrile and maintaining an oxygen saturation of around 96-98% on 2 L nasal cannula. Labs this morning show white blood cell count 13,500, INR 1.5, potassium 2.9, BUN 67, creatinine 2.5, AST 1214, ALT 949, an alkaline phosphatase of 194. Objective - Vital Signs Vital signs: Vital Signs Temp 97.4 F L 10/29/19 04:00 Pulse 78 10/29/19 08:00 Resp 16 10/29/19 08:00 BP 115/59 10/29/19 08:00 Pulse Ox 96 10/29/19 04:00 Intake & Output 10/28/19 10/29/19 10/29/19 18:59 06:59 18:59 Intake Total 235.09 Output Total 1100 4600 800 Balance -864.91 -4600 -800 Weight 77 kg Intake: Intake, IV Titration 235.09 Amount DOBUTamine DRIP 500 mg In 135.09 Dextrose/Water 1 250ml. bag @ 2.5 MCG/KG/MIN 5. 925 mls/hr IV .Q24H [facility] Rx#:[id number] Furosemide 100 mg In 100 Sodium Chloride 0.9% 90 ml @ 10 MG/HR 10 mls/hr IV .Q10H [facility] Rx#: [id number] Output: Urine 1100 3600 800 Uretheral (Silveira) 1400 Hemodialysis 1000 Other: Voiding Method Indwelling Catheter Indwelling Catheter - Exam PHYSICAL EXAMINATION: HEENT: Head is atraumatic, normocephalic. Pupils equal, round. Neck is supple. There is no elevated jugular venous pressure. HEART EXAMINATION: Heart sounds irregularly irregular, S1 and S2 with a systolic murmur CHEST EXAMINATION: Lungs reveal diminished air entry bilateral bases faint crackles bilateral bases. No chest wall tenderness is noted on palpation or with deep breathing. ABDOMEN: Soft, nontender, mildly distended. Bowel sounds are heard. No or ganomegaly noted. EXTREMITIES: 2+ peripheral pulses with evidence of trace to mild peripheral deb a and no calf tenderness noted. Right femoral dialysis catheter noted. NEUROLOGIC patient is more awake, answering some questions . - Labs CBC & Chem 7: 10/29/19 05:44 10/29/19 05:44 Labs: Abnormal Lab Results - Last 24 Hours (Table) 10/28/19 10/28/19 10/28/19 Range/Units 11:30 17:08 20:56 WBC (3.8-10.6) k/uL PT (9.0-12.0) sec INR (<1.2) Potassium (3.5-5.1) mmol/L BUN (7-17) mg/dL Creatinine (0.52-1.04) mg/dL Glucose (74-99) mg/dL POC Glucose (mg/dL) 130 H 159 H 133 H (75-99) mg/dL Calcium (8.4-10.2) mg/dL Phosphorus (2.5-4.5) mg/dL AST (14-36) U/L ALT (4-34) U/L Alkaline Phosphatase (38-126) U/L Total Protein (6.3-8.2) g/dL Albumin (3.5-5.0) g/dL 10/29/19 10/29/19 10/29/19 Range/Units 05:44 05:44 05:44 WBC 13.5 H (3.8-10.6) k/uL PT 14.6 H (9.0-12.0) sec INR 1.5 H (<1.2) Potassium 2.9 L (3.5-5.1) mmol/L BUN 67 H (7-17) mg/dL Creatinine 2.50 H (0.52-1.04) mg/dL Glucose 108 H (74-99) mg/dL POC Glucose (mg/dL) (75-99) mg/dL Calcium 8.1 L (8.4-10.2) mg/dL Phosphorus 5.2 H (2.5-4.5) mg/dL AST 1214 H (14-36) U/L ALT 949 H (4-34) U/L Alkaline Phosphatase 194 H (38-126) U/L Total Protein 6.0 L (6.3-8.2) g/dL Albumin 3.1 L (3.5-5.0) g/dL 10/29/19 Range/Units 06:15 WBC (3.8-10.6) k/uL PT (9.0-12.0) sec INR (<1.2) Potassium (3.5-5.1) mmol/L BUN (7-17) mg/dL Creatinine (0.52-1.04) mg/dL Glucose (74-99) mg/dL POC Glucose (mg/dL) 111 H (75-99) mg/dL Calcium (8.4-10.2) mg/dL Phosphorus (2.5-4.5) mg/dL AST (14-36) U/L ALT (4-34) U/L Alkaline Phosphatase (38-126) U/L Total Protein (6.3-8.2) g/dL Albumin (3.5-5.0) g/dL Microbiology - Last 24 Hours (Table) 10/25/19 12:36 Blood Culture - Preliminary Blood No Growth after 72 hours Assessment and Plan Assessment: #1 multisystem organ failure with evidence of CHF, EF 20-25%, SHERIDAN on CKD, and acute liver failure, #2 acute on chronic systolic congestive heart failure with severely impaired LV systolic function with EF 20-25% #3 minimally abnormal troponins, not consistent with acute coronary syndrome however underlying ischemia cannot be ruled out at this time #4 persistent atrial fibrillation, INR 2.0, anticoagulation is on hold at this time #5 hypertension #6 hyperlipidemia #7 obstructive sleep apnea #8 abnormal d-dimer with VQ scan showing low and of intermediate probability for PE #9 acute kidney injury on chronic kidney disease, may be dealing with card iorenal syndrome, being followed by nephrology, currently undergoing dialysis #10 acute liver failure #11 Hypokalemia Plan: From cardiology's perspective, medications were reviewed and we will continue the same. Improvement noted post dialysis. Continue to follow closely along with nephrology. Continue Lasix and Dobutamine drip. We will provide further recommendations accordingly. DAIRY CLERK note has been reviewed, I agree with a documented findings and plan of care. Patient was seen and examined.
[2019-10-29 11:37] LABS: Glucose,Whole Blood 93 mg/dL (75-99)
[2019-10-29] MEDS: LACTULOSE 20 GM/30 ML CUP PO SCH ×4 (13:01→21:11)
[2019-10-29] MEDS: SODIUM BICARBONATE TAB 650 MG TAB PO SCH ×3 (13:02→21:11)
[2019-10-29] MEDS: SERTRALINE 50 MG TAB PO SCH (13:02)
[2019-10-29] MEDS: PANTOPRAZOLE 40 MG TABLET PO SCH ×2 (13:02→21:11)
--- NOTE | 2019-10-29 13:02 | P.PN ---
Subjective Progress Note Date: 10/29/19 Principal diagnosis: Cough, dyspnea, pleural effusion This is a 74-year-old female with history of multiple medical problems including breast cancer and previous right-sided mastectomy, obstructive sleep apnea syndrome, chronic atrial fibrillation maintained on Eliquis and on beta blockers, hypertension, patient presented to the hospital on 10/24/19, complaining of few days' history of increased shortness of breath, and vague abdominal pain. Workup included CT of the abdomen and pelvis, and it showed moderate cardiomegaly, moderate pleural effusions, and atelectasis. It also showed abdominal ascites, this most likely correlated with chronic congestive heart failure. Chest x-ray also showed evidence of pleural effusions and consistent with congestive heart failure. VQ scan showed low to intermediate probability of pulmonary embolism, chest x-ray today showed slight improvement with her congestive heart failure, and hardly any right-sided pleural effusion but she c ontinues to have a small left pleural effusion. Repeat echocardiogram showed severe LV dysfunction with ejection fraction of 20%. Considering the pleural effusion, I was asked to see the patient on consultation. Patient seems to be responding well to diuretics so far, hence I have no plans to perform thoracentesis unless the patient shows worsening pleural effusion and no response to diuretics. On 10/27/2019 patient seen in follow-up on selective care unit. Patient is still producing very limited amount of urine, only 310 mL of urine in the last 24 hours and the patient did receive Lasix challenge per nephrology. She is lethargic on today's exam, but arousable, she is mumbling, 2 L of oxygen and the pulse ox of 94-96%, she's been afebrile, blood pressures 97/63. Lung sounds are diminished bilaterally. So far blood and urine cultures have shown no growth. Her renal profile is worsening, with BUN up to 67 and creatinine at 3.28, nephrology is following, her liver enzymes jumped to 3251 from 55 on 10/24/2019, ALT is 1119, and alkaline phosphatase is 233, ammonia level is 44. Abdomen is soft, nontender. Urinalysis was negative for any sign of infection, abdominal ultrasound showed prominence of the common bile duct that could be related to postcholecystectomy change. Echocardiogram showed severely impaired left ventricle systolic function with an EF of 20-25%, mild mitral regurg, moderate tricuspid regurg, IVC is dilated with no significant inspiratory collapse with e stimated right atrial pressure of greater than 20 mmHg. Per nephrology and cardiology patient will be started on dobutamine and Lasix drip in view of worsening renal function, cardiorenal syndrome. From pulmonary perspective bilateral pleural effusions were too small for drainage The patient was seen today 10/28/2019 in follow-up on the selective care unit. She is currently resting fairly comfortably in bed. She is difficult to arouse. Computed tomography scan of the brain revealed mild age-related atrophy. She is maintaining good O2 saturations in the mid 90s on 2 L/m per nasal cannula. She's afebrile. Blood and urine cultures reveal no growth. White count 15.5. Hemoglobin 12.2. INR 2.0. Sodium 140. Potassium 3.7. Creatinine 3.67. AST 2718, ALT 1246, ammonia level 44. She remains on dobutamine at 2.5 mcg/kg/m. The patient is seen today 10/29/2019 in follow-up on the selective care unit. She is a bit more awake and alert today. Confused. Currently receiving hemodi alysis. Maintaining O2 saturations in the 90s on 2 L/m per nasal cannula. Afebrile. Hemodynamically stable. Blood and urine cultures reveal no growth. White count 13.5. Hemoglobin 11.8. INR 1.5. Sodium 142. Potassium 2.9. Creatinine 2.50. AST 1214. ALT 949. She remains on dobutamine at 2.5 mcg/kg/m. She is continued on lactulose. Follow-up ammonia level pending. Objective - Vital Signs Vital signs: Vital Signs Temp 97.4 F L 10/29/19 04:00 Pulse 77 10/29/19 11:44 Resp 16 10/29/19 11:56 BP 108/52 10/29/19 11:44 Pulse Ox 96 10/29/19 04:00 Intake & Output 10/28/19 10/29/19 10/29/19 18:59 06:59 18:59 Intake Total 235.09 Output Total 1100 4600 3400 Balance -864.91 -4600 -3400 Weight 77 kg Intake: Intake, IV Titration 235.09 Amount DOBUTamine DRIP 500 mg In 135.09 Dextrose/Water 1 250ml. bag @ 2.5 MCG/KG/MIN 5. 925 mls/hr IV .Q24H [facility] Rx#:[id number] Furosemide 100 mg In 100 Sodium Chloride 0.9% 90 ml @ 10 MG/HR 10 mls/hr IV .Q10H [facility] Rx#: [id number] Output: Urine 1100 3600 1400 Uretheral (Silveira) 1400 Hemodialysis 1000 2000 Other: Voiding Method Indwelling Catheter Indwelling Catheter Indwelling Catheter - Exam GENERAL EXAM: Awake, chronically ill-looking, 74-year-old female patient on 2 L of oxygen the pulse ox of 96% comfortable in no apparent distress. HEAD: Normocephalic/atraumatic. EYES: Normal reaction of pupils, equal size. Conjunctiva pink, sclera white. NOSE: Clear with pink turbinates. THROAT: No erythema or exudates. NECK: No masses, no JVD, no thyroid enlargement, no adenopathy. CHEST: No chest wall deformity. Symmetrical expansion. LUNGS: Equal air entry with crackles in the bilateral posterior bases CVS: Regular rate and rhythm, normal S1 and S2, no gallops, no murmurs, no rubs ABDOMEN: Soft, nontender. No hepatosplenomegaly, normal bowel sounds, no guarding or rigidity. EXTREMITIES: No clubbing, no edema, no cyanosis, 2+ pulses and upper and lower extremities. MUSCULOSKELETAL: Muscle strength and tone normal. SPINE: No scoliosis or deformity SKIN: No rashes CENTRAL NERVOUS SYSTEM: No focal deficits, tone is normal in all 4 extremities. - Labs CBC & Chem 7: 10/29/19 05:44 10/29/19 05:44 Labs: Abnormal Lab Results - Last 24 Hours (Table) 10/28/19 10/28/19 10/29/19 Range/Units 17:08 20:56 05:44 WBC (3.8-10.6) k/uL PT 14.6 H (9.0-12.0) sec INR 1.5 H (<1.2) Potassium (3.5-5.1) mmol/L BUN (7-17) mg/dL Creatinine (0.52-1.04) mg/dL Glucose (74-99) mg/dL POC Glucose (mg/dL) 159 H 133 H (75-99) mg/dL Calcium (8.4-10.2) mg/dL Phosphorus (2.5-4.5) mg/dL AST (14-36) U/L ALT (4-34) U/L Alkaline Phosphatase (38-126) U/L Total Protein (6.3-8.2) g/dL Albumin (3.5-5.0) g/dL 10/29/19 10/29/19 10/29/19 Range/Units 05:44 05:44 06:15 WBC 13.5 H (3.8-10.6) k/uL PT (9.0-12.0) sec INR (<1.2) Potassium 2.9 L (3.5-5.1) mmol/L BUN 67 H (7-17) mg/dL Creatinine 2.50 H (0.52-1.04) mg/dL Glucose 108 H (74-99) mg/dL POC Glucose (mg/dL) 111 H (75-99) mg/dL Calcium 8.1 L (8.4-10.2) mg/dL Phosphorus 5.2 H (2.5-4.5) mg/dL AST 1214 H (14-36) U/L ALT 949 H (4-34) U/L Alkaline Phosphatase 194 H (38-126) U/L Total Protein 6.0 L (6.3-8.2) g/dL Albumin 3.1 L (3.5-5.0) g/dL Microbiology - Last 24 Hours (Table) 10/25/19 12:36 Blood Culture - Preliminary Blood No Growth after 72 hours Assessment and Plan Assessment: Acute on chronic systolic congestive heart failure with pleural effusions and ascites. Repeat echocardiogram showed worsening LV function. Possible non-ST elevation myocardial infarction. Acute on chronic kidney injury, patient is known to have history of chronic kidney disease stage II, I suspect we may be dealing with a cardiorenal syndrome. No clear-cut evidence of pneumonia based on chest x-ray and based on the clinical history. Nondiagnostic VQ scan, but clinically the patient does not have pulmonary embolism. Chronic atrial fibrillation. Patient is maintained on anti-GERD ablation therapy and beta blockers. Dyslipidemia. Obstructive sleep apnea syndrome on home CPAP. History of hyperthyroidism, maintained on Tapazole. Acute elevation of the liver enzymes, likely related to hypoperfusion due to severe cardiomyopathy and acute exacerbation of systolic CHF Plan: The patient was seen and evaluated by Dr. Koroma Continue the current medications Ammonia level pending Poor prognosis, remains a full code Hemodialysis in process Probable subacute rehab upon discharge I, the cosigning physician, performed a history & physical examination of the p atient. Lungs sounds with crackles in bilateral bases Maintaining good O2 saturations in the 90s on 2 L/m per nasal cannula. I discussed the assessment and plan of care with my nurse practitioner, Kathryn Roy. I attest to the above note as dictated by her.
[2019-10-29] MEDS: METOPROLOL TARTRATE 5 MG/5 ML VIAL IVP SCH ×2 (13:04→21:11)
--- NOTE | 2019-10-29 13:22 | XR ---
EXAMINATION TYPE: XR chest 1V portable DATE OF EXAM: 10/29/2019 COMPARISON: 10/25/2009 HISTORY: Shortness of breath TECHNIQUE: Single frontal view of the chest is obtained. FINDINGS: Heart is enlarged and there is bilateral consolidation small effusion. No pneumothorax. Co arsened central interstitium. Diffuse osteopenia with arthropathy of the shoulders. Atherosclerotic c hange aorta. IMPRESSION: 1. Bilateral lower lobe infiltrate and small effusion correlate for mild CHF. 2. Correlate for hiatal hernia.
[2019-10-29 16:57] LABS: Glucose,Whole Blood 182 mg/dL (75-99)
--- NOTE | 2019-10-29 18:50 | PN ---
PROGRESS NOTE DATE OF DICTATION: 10/29/2019 This patient is a 74-year-old pleasant white female admitted to the hospital with altered mental status, hypertension, congestive heart failure, and during the hospitalization she was noted to have acute elevation of serum transaminases and acute kidney injury. She is much more awake today, responding to questions appropriately. Had a normal diet for lunch. Denies any complaints. PHYSICAL EXAMINATION: Awake, comfortable. VITAL SIGNS: Blood pressure 109/65, pulse rate 83. HEENT examination unremarkable. Conjunctivae pink. Sclerae anicteric. Oral cavity no lesions. NECK: No JVD or lymph node enlargement. CHEST: Clear to auscultation. HEART: Regular rate and rhythm. ABDOMEN: Soft. It was non-tender, non-distended. Bowel sounds are positive. No organomegaly. NEUROLOGIC: Awake. Oriented to name but not to place or time. LABS: Labs from today show AST is down to 1214, ALT down to 949, T-bilirubin normal, alkaline phosphatase 194. BUN is 67 and creatinine 2.50. IMPRESSION: 1. Acute elevation of serum transaminases consistent with acute hepatocellular injury from hypoperfusion related to ischemic hepatitis, which are gradually improving. 2. Acute kidney injury secondary to acute tubular necrosis with improving BUN and creatinine. 3. Severe congestive heart failure. 4. Altered mental status, resolving. RECOMMENDATIONS: 1. Monitor LFTs closely. 2. Avoid hepatotoxic medications. 3. Continue symptomatic and supportive care. 4. Repeat labs in the morning. Will follow with you closely. Thank you for this consultation. MMMOSESL / CASTRON: [id number] /
[2019-10-29 20:48] LABS: Glucose,Whole Blood 190 mg/dL (75-99)
--- NOTE | 2019-10-29 20:50 | CONS ---
CONSULTATION DATE OF SERVICE: 10/29/2019 HISTORY OF PRESENT ILLNESS: Thank you for asking me to evaluate Aby Ag, who is a 74-year-old right- handed white female who presented to [facility] on 10/24/2019 for evaluation of shortness of breath and cough. During the course of this hospitalization, the patient has been diagnosed with acute on chronic heart failure, acute kidney injury and shock liver secondary to hypoperfusion from cardiac failure. Due to these issues, the patient is currently maintained on Lasix and dobutamine drips and was started on dialysis on 10/28/2019. The patient is being seen from a neurologic standpoint for evaluation of lethargy and altered mental status. On 10/27/2019 the patient was described as lethargic, and yesterday she was more lethargic and difficult to arouse. She was dialyzed yesterday and the patient/nursing staff and her daughter at the bedside all feel the patient has significantly improved today. They state that the patient is more alert and communicating. The patient has been afebrile through the course of this hospitalization, and even on the days when she was more lethargic oxygen saturations on 2 L nasal cannula were in the 90s. The patient currently denies headache, vertigo, diplopia, difficulty chewing/swallowing, focal weakness or numbness in the extremities, and daughter has noted no facial droop. The patient has no previous history of stroke or seizure. No seizure activity has been witnessed, although the patient does report having hallucinations during the course of this hospitalization. For further evaluation, the patient did have a CT scan of the brain completed without contrast on 10/28/2019, which demonstrated no acute pathology. ALLERGIES: LEVAQUIN and LATEX. HOME MEDICATIONS PRIOR TO THIS HOSPITALIZATION,: Multivitamin, Lasix, hydralazine, Protonix, metoprolol, Tapazole, Neurontin 300 mg at bedtime, Zoloft, Lopid, calcium with vitamin D, baclofen and Eliquis. CURRENT MEDICATIONS: Current medications include dobutamine/Lasix drips, insulin, lactulose, metoprolol, morphine p.r.n. (nursing staff state the patient has not received this medication since 10/24/2019), Zofran, Protonix, Zoloft and sodium bicarb. PAST MEDICAL HISTORY: COPD, CHF, breast cancer diagnosed 14 years ago, status post surgical resection without chemotherapy/radiation, hyperthyroidism, obstructive sleep apnea on CPAP, chronic atrial fibrillation, hypertension, hyperlipidemia, hiatal hernia, diverticulosis, stress urinary incontinence, arthritis, renal calculi, and LV dysfunction with an ejection fraction on echocardiogram during this hospitalization of 20% to 25%. PAST SURGICAL HISTORY: Right mastectomy, cholecystectomy, tonsillectomy and adenoidectomy, hysterectomy and appendectomy. SOCIAL HISTORY: The patient denied tobacco or alcohol use. She is a with 2 children and lives in a house by herself. Her grandson does stay with her during the weekdays. She has not been using any assistive device to ambulate at home. FAMILY HISTORY: Patient's father had microinfarction and mother of natural causes. REVIEW OF SYSTEMS: Fourteen systems are reviewed and no additional points are identified other than the review of systems documented in the history and physical. PHYSICAL EXAMINATION: Upon my arrival in the patient's room, she was lying in bed, about to eat dinner. Her daughter was at the bedside. She was receptive to the examiner. Affect is flat. She is a fair historian, appears frail, deconditioned and older than stated age. The patient's CPAP machine is at the bedside. Through the course of the evaluation, the patient's phone began to ring in the closet, her daughter got it out, and the patient asked her daughter who had called. VITAL SIGNS: Blood pressure is 109/65 with a pulse of 83, respiratory rate 16, temperature 97.4. Weight is 77 kg on a 5-foot 3-inch frame. SKIN AND EXTREMITIES: There is mild distal lower extremity edema. HEAD AND NECK: No tenderness or signs of trauma. Neck is supple without meningeal signs. Arteries are nontender and without bruits. HEART: Irregularly irregular. HIGHER CORTICAL FUNCTION MENTAL STATUS: Patient was alert and oriented to self. She knew she was in a hospital in [place]. She knew the year, stated the month was "August," and was able to name the current president. She was able to name her daughter. The patient's speech was mildly slow but not dysarthric. She was able to name, repeat and read. There was no right and left disorientation, finger agnosia or extinction to double simultaneous stimulation. CRANIAL NERVES II THROUGH XII: II: Pupils are equal and reactive to light symmetrically. No afferent pupillary defect. Visual jolley are intact to confrontation. III, IV, : No ptosis. Extraocular movements are full. No nystagmus. V: Pinprick, light touch intact in all 3 divisions. Motor V intact. VII: No facial asymmetry or weakness. Acuity intact to finger rub. IX, X: Palate manpreet in the midline. XI: Trapezius strength intact. XII: Tongue protruded midline without fasciculation or atrophy. MOTOR EXAMINATION: There is no pronator drift. There is reduced bulk in the hand intrinsic muscles with normal tone, and myoclonic movements were noted in the upper extremities. Strength is at least 4 to 4+ over 5 in nonfocal fashion involving the bilateral upper and lower extremities. Sensory intact to pinprick, light touch in all extremities per patient. Reflexes (right side listed first): Biceps 1,1; brachioradialis 1,1; triceps 2, 2; patella 2, 2; ankle 0.0. Plantar response is flexor bilaterally. Malik's is absent. COORDINATION: There is no ataxia with [id number] movements. Rapid alternating movements are symmetric with finger and foot tapping. DIAGNOSTIC TESTING: The patient had a CT scan of the brain completed without contrast on 10/28/2019 which demonstrated atrophy and an old right cerebellar infarct. No ventriculomegaly was present. LAB WORK: Lab work demonstrates a white blood cell count of 13.5, hemoglobin of 11.8, platelet count 202. Sodium 142, potassium 2.9, BUN 67 with a creatinine 2.5. BUN and creatinine on presentation on 10/24/2019 were 24 and 1.21, respectively. Blood and urine cultures demonstrated no growth. Coronavirus negative. Urinalysis revealed negative nitrate and leukocyte esterase. Troponin has been as high as 0.043. INR 1.5. Hemoglobin A1c 6.0 with a calcium of 8.1, magnesium 1.9. Ammonia level was 44 on 10/27/2019 and 24 today. On presentation, the patient's ALT was 29 and went as high as 1246 on 10/27 and today is 949. AST was 55 on presentation and went as high as 3251 on 10/26 and today is 1214. IMPRESSION: 1. Metabolic encephalopathy with myoclonus secondary to acute kidney injury/shock liver. 2. Acute on chronic congestive heart failure, elevated troponin, and echocardiogram demonstrating an ejection fraction of 20% to 25% per Cardiology. 3. Chronic atrial fibrillation, maintained on Eliquis on an outpatient basis. 4. Obstructive sleep apnea, on CPAP. 5. 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 6. Medical problems, including chronic obstructive pulmonary disease, breast carcinoma diagnosed 14 years ago, status post surgical resection without chemotherapy/radiation, hyperthyroidism, hypertension, hyperlipidemia, hiatal hernia, diverticulosis, stress urinary incontinence, arthritis, renal calculi. 7. Deconditioning. RECOMMENDATIONS: 1. I discussed my impression and plan with the patient and her daughter, and they expressed understanding. Both the patient's daughter at the bedside and nursing staff feel the patient has significantly improved compared to yesterday after being dialyzed. 2. CT of the brain demonstrated no acute pathology. 3. Treatment of medical issues per primary service. 4. Avoid sedative/narcotic medication if possible. 5. Increase activity as tolerated. The patient will require therapy after her medical condition stabilizes, as she appears significantly deconditioned. 6. Risk factor modification. Would recommend re-initiating Eliquis when acceptable from a medical standpoint. 7. Please feel free to contact me if there are further questions from a neurologic standpoint. Thank you for allowing me to participate in the care of your patient. MMODL / IJN: [id number] / CRISTIANO
[2019-10-30] MEDS: DOBUTamine DRIP 500 MG in DEXTROSE/WATER 1 250ML.BAG IV SCH (01:47)
[2019-10-30] MEDS: FUROSEMIDE 100 MG in SODIUM CHLORIDE 0.9% 90 ML IV SCH ×3 (02:58→20:23)
[2019-10-30 06:32] LABS: Glucose,Whole Blood 130 mg/dL (75-99)
[2019-10-30] MEDS: INSULIN ASPART (NovoLOG) 100 UNIT/ML VIAL SQ SCH ×4 (06:43→20:27)
[2019-10-30 07:01] LABS: HGB 13.3 gm/dL (11.4-16.0); Hypochromasia Moderate; MCH 27.8 pg (25.0-35.0); MCHC 30.2 g/dL (31.0-37.0); MCV 91.8 fL (80.0-100.0); Mean Platelet Volume 10.6; Platelet Count 173 k/uL (150-450); RDW 13.3 % (11.5-15.5); WBC 13.3 k/uL (3.8-10.6)
[2019-10-30 07:14] LABS: INR 1.2 (<1.2); Prothrombin Time 11.9 sec (9.0-12.0)
[2019-10-30 07:18] LABS: Albumin 3.1 g/dL (3.5-5.0); Calcium 8.5 mg/dL (8.4-10.2); Magnesium 1.7 mg/dL (1.6-2.3); Potassium 3.1 mmol/L (3.5-5.1); Total Bilirubin 0.8 mg/dL (0.2-1.3); Total Protein 6.2 g/dL (6.3-8.2)
--- NOTE | 2019-10-30 09:47 | P.PN ---
Subjective Progress Note Date: 10/30/19 This is a 74-year-old female patient of Dr. Nelson with past medical history of breast cancer post right sided mastectomy, hyperglycemia, hyperthyroidism, obstructive sleep apnea, chronic atrial fibrillation on eliquis, hypertension, hyperlipidemia. Patient complains of feeling tired, nauseated and short of breath and cough. She states she has had nausea and vomiting along with since weekend. She denies having any fever or chills. Lab work revealed WBC 13.6, hemoglobin 14.3, platelet count 372. Sodium 141, potassium 3.7, chloride 109, CO2 17, BUN 24 and creatinine 1.21. B lood sugar was 149. AST of 55 and alkaline phosphatase 188, ALT 29. Lipase 386 INR 1.2. Initial lactic acid 3.3. Troponin 0.035. ProBNP 9000. EKG was atrial fibrillation with a rate of 90. Chest x-ray reveals congestive heart failure with pleural fluid that appears new. Large hiatal hernia unchanged. CAT scan of the abdomen and pelvis revealed moderate cardiomegaly. Bilateral moderate pleural effusions and basilar pulmonary infiltrates and atelectasis. Abdominal ascites. This could be related to chronic heart failure. Ascites and pleural fluid are new compared to old exam. 10/25: Patient continues to have shortness of breath and speech is slow. She remains slightly confused but oriented 3. Patient is not back to her baseline. Her abdomen is better. She denies abdominal pain. She is on a full liquid diet. Consult with Dr. Valentin added her concern for ischemic bowel. Consult also added for Dr. Koroma for pleural effusion. 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 Su catheter was placed for urinary retention. VQ scan is low end of intermediate probability for pulmonary embolism. Patient has been seen in follow-up by cardiology for possible non-ST elevated myocardial infarction with recommendations to continue current medication and continue diuretics. Echocardiogram pending. Patient is followed by nephrology and seen yesterday started on a bicarb drip and discontinued Lasix. Today, oral sodium bicarb was added and Lasix 80 mg IV once. Repeat chest x-ray was ordered. Patient has been afebrile, heart rate 88, blood pressure 105/69, pulse ox 94% on 2 L nasal cannula. Repeat blood work reveals sodium 142, potassium 4.7, chloride 107, CO2 17, BUN 48 creatinine 2.20. Blood sugars are running between 96 and 145. Urinalysis cloudy, nitrate and leukoesterase negative. Acetone was negative, LDH 762. Serum osmolality 305. 10/26: Patient have increasing confusion today with significantly elevated liver function tests with AST of 3251, ALT 1119, alkaline phosphatase 233. We have added and lab work for ammonia level which came back 44 and INR of 2.4. Eliquis discontinued. Consult with GI has been added. Concern for drug induced hepatitis and azithromycin and ceftriaxone will be discontinued. Patient is currently on ceftriaxone only. Acute hepatitis panel and abdominal ultrasound ordered. Patient has been started on dobutamine drip and Lasix drip by nephrology. Echocardiogram reveals EF of 20-25%, mild aortic regurgitation, mild mitral regurgitation, moderate tricuspid regurgitation, mild pulmonary hypertension. Chest x-ray from yesterday reveals stable bilateral infiltrate and pleural effusion. Correlate for venous congestion and CHF may be slightly improved. Underlying pneumonia not excluded. Discussed case with Dr. Valentin and he feels that bowel symptoms and elevated liver function tests are related to ischemic bowel secondary to hypoperfusion from heart failure. 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 Patient is followed by multiple consultants. 10/27: The patient's mental status continues to decline. Patient is unable to take any oral intake. She did take small amount of liquid this morning for her medication and was aspirating. She had worsening AST 2718, ALT 1246, phosphatase 219, total bilirubin is 0.6, INR 2.0. WBC 15.5, hemoglobin 12.2. Renal function continues to worsen as well with a BUN of 85 and creatinine 3.67. Patient is currently on dobutamine and Lasix drips. She has had runs of V. tach 1-2 times per day for the past 2 days. She has been afebrile, heart rate 90, blood pressure 94/56, pulse ox 96% on 2 L. 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 Patient's oral medications have been either discontinued or changed to IV. Abdominal ultrasound revealed findings due to hepatocellular disease. Prominence of the common bile duct may be due to patient's age and postcholecystectomy change. Exam limited. The patient was seen by GI yesterday and findings consistent with hypoperfusion causing ischemic hepatitis CAT scan of the brain ordered this morning which revealed mild age-related atrophy. Contacted patient's son Faraz and given up date regarding her condition and worsening condition and prognosis. He and his sister care will come up to see the patient. Confirm the patient is a full code . 10/28: Patient's mental status is improving today. Appears patient may be able to swallow and follow commands, speech therapy will be added. Consult for neurology will be added. Yesterday, Dr. Perales placed a right groin dialysis catheter. Patient underwent hemodialysis yesterday and scheduled for repeat dialysis today. Dobutamine and Lasix drips on hold this time. She has been afebrile, heart rate 77, blood pressure 114/53 and pulse ox 96% on 2 L nasal cannula. Repeat blood work today reveals improvement of her liver function tests with total bilirubin 0.6, AST 1214, ALT 949, alkaline phosphatase 194, INR 1.5. Renal function is improved with BUN of 67 creatinine 2.5. Potassium 2.9. WBC 15.5, hemoglobin 11.8. Blood sugars are running between 111 159. Patient is currently on scale insulin only due to no oral intake. 10/29: Patient's mental status is improving. She knows where she has that she is having some hallucinations. She is cooperative and able to follow commands. She has had improvement of her kidney function and liver function tests. Patient has been afebrile, heart rate 82, blood pressure 113/63, pulse ox 99% on 2 L nasal cannula. WBC 13.3, hemoglobin 13.3, platelets 173. INR 1.2, AST 559, ALT 703, alkaline phosphatase 187, total bilirubin 0.8. Potassium 3.1, chloride 108, BUN 45 creatinine 1.51. Blood sugars run between 118-190. Patient was seen yesterday by neurology with recommendations continue treating underlying cause of metabolic encephalopathy. Patient was evaluated by speech therapy with no overt signs and symptoms of aspiration and recommendations for pured diet with thin liquids and supervision, no straws. Patient underwent hemodialysis yesterday with removal of 2 L of fluid. She has had good urine output. She is continued on dobutamine and Lasix drips. Objective - Vital Signs Vital signs: Vital Signs Temp 96.8 F L 10/30/19 04:00 Pulse 82 10/30/19 04:00 Resp 14 06/12/20 04:00 BP 113/63 10/30/19 04:00 Pulse Ox 99 10/30/19 04:00 Intake & Output 10/29/19 10/30/19 10/30/19 18:59 06:59 18:59 Intake Total 480 250 120 Output Total 3400 1875 575 Balance -2920 -1625 -455 Weight 77 kg 73 kg Intake: IV 100 Furosemide 100 mg In 100 Sodium Chloride 0.9% 90 ml @ 10 MG/HR 10 mls/hr IV .Q10H [facility] Rx#: [id number] Intake, IV Titration 100 Amount Furosemide 100 mg In 100 Sodium Chloride 0.9% 90 ml @ 10 MG/HR 10 mls/hr IV .Q10H [facility] Rx#: [id number] Oral 480 50 120 Output: Urine 1400 1875 575 Uretheral (Su) 500 Hemodialysis 2000 Other: Voiding Method Indwelling Catheter Indwelling Catheter - Exam Review of Systems Constitutional: No fever, no chills, reports weakness, fatigue, reports daytime sleepiness. EENT: Reports headache. No nasal drainage or congestion. No epistaxis. No sore throat. Lungs: No shortness of breath, cough, no sputum production. No wheezing. Cardiovascular: No chest pain, mild lower extremity edema. No palpitations. No paroxysmal nocturnal dyspnea. No orthopnea. No lightheadedness or dizziness. No syncopal episodes. Abdominal: No abdominal pain. No nausea, vomiting. No diarrhea. No bloody or tarry stools. Genitourinary: No dysuria, increased frequency, urgency. Urinary retention- su. Musculoskeletal: Reports myalgias. Reports muscle weakness, Reports gait dysfunction, no frequent falls. No back pain. No neck pain. Integumentary: No wounds, no lesions. No rash or pruritus. No unusual bruising. Neurologic: No aphasia. No facial droop. Reports change in mentation-improving. No head injury. Psychiatric: No depression. No anxiety. No mood swings. Reports lugo ucinations. Endocrine: Reports abnormal blood sugars. Physical Examination Gen: This is a 74-year-old female. Patient is resting in bed in no acute distress. Less confused today. HEENT: Head is atraumatic, normocephalic. Pupils equal, round. Sclerae is anic teric. NECK: Supple. No JVD. No lymphadenopathy. No thyromegaly. LUNGS: Clear to auscultation. No wheezes or rhonchi. No intercostal retractions. HEART: Irregularly irregular rate and rhythm. Systolic murmur. ABDOMEN: Soft. Bowel sounds are present. No masses. No tenderness. No right upper quadrant or epigastric tenderness noted. EXTREMITIES: 1+ pedal edema. No calf tenderness. NEUROLOGICAL: Patient is awake, alert and oriented to person and place. Significant weakness noted. - Labs CBC & Chem 7: 10/30/19 06:14 10/30/19 06:14 Labs: Abnormal Lab Results - Last 24 Hours (Table) 10/29/19 10/29/19 10/30/19 Range/Units 16:36 20:46 06:14 WBC 13.3 H (3.8-10.6) k/uL MCHC 30.2 L (31.0-37.0) g/dL INR (<1.2) Potassium (3.5-5.1) mmol/L Chloride (98-107) mmol/L BUN (7-17) mg/dL Creatinine (0.52-1.04) mg/dL Glucose (74-99) mg/dL POC Glucose (mg/dL) 182 H 190 H (75-99) mg/dL AST (14-36) U/L ALT (4-34) U/L Alkaline Phosphatase (38-126) U/L Total Protein (6.3-8.2) g/dL Albumin (3.5-5.0) g/dL 10/30/19 10/30/19 10/30/19 Range/Units 06:14 06:14 06:21 WBC (3.8-10.6) k/uL MCHC (31.0-37.0) g/dL INR 1.2 H (<1.2) Potassium 3.1 L (3.5-5.1) mmol/L Chloride 108 H (98-107) mmol/L BUN 45 H (7-17) mg/dL Creatinine 1.51 H (0.52-1.04) mg/dL Glucose 118 H (74-99) mg/dL POC Glucose (mg/dL) 130 H (75-99) mg/dL AST 559 H (14-36) U/L ALT 703 H (4-34) U/L Alkaline Phosphatase 187 H (38-126) U/L Total Protein 6.2 L (6.3-8.2) g/dL Albumin 3.1 L (3.5-5.0) g/dL Microbiology - Last 24 Hours (Table) 10/25/19 12:36 Blood Culture - Preliminary Blood No Growth after 96 hours Assessment and Plan Plan: 1. Acute on chronic systolic heart failure with pleural effusions and ascites. Previous echocardiogram with EF of 40-45 % from June 2018. Repeat echocardiogram reveals EF of 20-25%. Nephrology has started the patient on dobutamine and Lasix drips. Continue Lopressor changed back to oral 12.5 mg twice daily. Monitor I&O and daily weights. Consult with Dr. Koroma appreciated regarding pleural effusions-no plan for thoracentesis. 2. Possible non-ST elevated myocardial infarction. Cardiology consult. Continue Lopressor, discontinue Lipitor 20 mg at bedtime. 3. Acute kidney injury with chronic kidney disease stage II. Nephrology consult appreciated. Patient is status post renal dialysis catheter, hemodialysis started 10/28. 4. Metabolic acidosis secondary to acute kidney injury, normal saline, lactic acidosis. Nephrology consult. 5. Possible pneumonia. Ruled out by pulmonary medicine. Discontinue ceftriax one and azithromycin. 6. Difficulty breathing with elevated d-dimer of 2.38. VQ scan ruled out PE. Patient states she has not missed any doses of eliquis. 7. Chronic atrial fibrillation. Resume eliquis 5 mg twice daily and continue Lopressor. 8. Transaminitis possibly related to heart failure with underlying liver disease, hepatorenal syndrome. Recheck liver function tests in the morning. Hold Lopid and Lipitor. A azithromycin and ceftriaxone discontinued. GI consult appreciated. Eliquis will be resumed as INR is at 1.2. 9. Multiorgan failure secondary to heart failure with ejection fraction of 20- 25%, acute kidney injury, acute liver failure, elevated troponins. 10. Nausea and vomiting possibly related to heart failure, liver congestion, history of Matthews. Continue Zofran as needed for nausea, Protonix 40 mg IV twice daily. Consult with Dr. Valentin. Diet advanced to pured with thin liquids, aspiration precautions. 11. Metabolic encephalopathy (POA) secondary to hepatorenal syndrome. CAT scan of the brain negative. Consult with neurology appreciated. 12. Obstructive sleep apnea on CPAP. 13. Hypothyroidism. Continue Tapazole 5 mg daily. 14. DVT prophylaxis. Elevated INR. Hold eliquis. 15. GI prophylaxis. Protonix. 16. Urinary retention. Su catheter placed. 17. COVID-19 infection not present. 18. Dyslipidemia. Hold Lopid 600 mg twice daily. 19. Borderline diabetes. Patient will be started on NovoLog scale before meals and at bedtime, hemoglobin A1c 6.0. CODE STATUS full code. Prognosis guarded. Discharge plan: Anticipate need for subacute rehab. Patient most likely will be ready for discharge on Saturday. Social work will be updated. Impression and plan of care have been directed as dictated by the signing physi cian. Alee Wang nurse practitioner acting as scribe for signing physician.
[2019-10-30] MEDS: LACTULOSE 20 GM/30 ML CUP PO SCH ×4 (09:50→20:24)
[2019-10-30] MEDS: PANTOPRAZOLE 40 MG TABLET PO SCH ×2 (09:51→20:23)
[2019-10-30] MEDS: SERTRALINE 50 MG TAB PO SCH (09:51)
[2019-10-30] MEDS: SODIUM BICARBONATE TAB 650 MG TAB PO SCH (09:51)
--- NOTE | 2019-10-30 11:02 | P.PN ---
Progress Note - Text Progress Note Date: 10/30/19 The patient feels better today. She she is sitting up in chair. She is alert and oriented. Her confusion seems to be resolved. She denies any abdominal pain. On exam vital signs appear stable. Abdomen soft. There is very minimal tenderness right quadrant. AST is 559 ALTs 703. Resolving shock liver related to hypotension and poor cardiac output. No surgical intervention is planned. Patient received supportive care.
--- NOTE | 2019-10-30 11:17 | P.PN ---
Subjective Progress Note Date: 10/30/19 This is a pleasant 74-year-old female with a history of hypertension, obstructive sleep apnea, dyslipidemia, breast cancer, CHF and atrial fibrillation who presented with complaints of nausea and vomiting. Patient remains quite drowsy and is a poor historian. HPI and history were obtained mostly from the chart. Chest x-ray on admission did show pulmonary vascular congestion with a large hiatal hernia. EKG showed atrial fibrillation with left bundle branch block. CT of the abdomen and pelvis showed moderate bilateral pleural effusions with bibasilar pulmonary infiltrates and atelectasis, abdomina l ascites. NT proBNP is elevated at 19,000. She's been on IV Lasix 40 mg by mouth every 8 hours. Labs this morning show significant increase in her BUN and creatinine which yesterday were 27 and 1.29 and this morning were 48 and 2.2. At the time of my examination, patient is resting comfortably in bed. Again she is quite drowsy. She does deny complaints of nausea or vomiting. Has no complaints of shortness of breath. Her only complaint at this time is of feeling tired. 10/27/2019 The patient was seen and examined resting in bed. She is lethargic this morning. Opens eyes to verbal stimuli but does not respond verbally. Echocardiogram showed severely impaired LV systolic function with an ejection fraction of 20-25% with mildly enlarged RV, mild AR with possible bicuspid aortic valve, moderate TR and mild pulmonary hypertension. Labs show further elevation of BUN and creatinine at 67 and 3.28, INR of 2.4 and elevated LFTs with an AST of 3251, ALT 1119 and alkaline phosphatase of 233, ammonia level 44 10/28/2019 Patient was seen and examined this morning. Patient's mental status continues to decline. She is quite lethargic and difficult to arouse. Labs this morning showed a white blood cell count 15,500, INR 2.0, BUN increasing to 85 and creatinine increasing at 3.67. LFTs relatively stable with an AST of 2718, ALT 1246 and alkaline phosphatase of 219. She was seen by GI yesterday who feels elevation of liver enzymes are related to ischemic hepatitis secondary to h ypoperfusion. Patient is being maintained on dobutamine at 2.5 g/kg/min and Lasix drip at 10 mg an hour. Patient is being followed by nephrology who is anticipating the need for dialysis. She remains in atrial fibrillation on the monitor with a controlled ventricular response. Occasional brief episodes of nonsustained ventricular tachycardia. She remains on metoprolol tartrate 12.5 mg by mouth twice a day. 10/29/2019 Patient was seen and examined this morning. Mental status has improved. The patient is awake alert and answering some questions. She underwent placement of a dialysis catheter last night by Dr. Perales. She underwent 2 hour hemodialysis last night and planning for 3 hour ultrafiltration today. At the time of my examination she is currently undergoing hemodialysis. Blood pressure has improved maintaining above 100 mmHg systolic. She is afebrile and maintaining an oxygen saturation of around 96-98% on 2 L nasal cannula. Labs this morning show white blood cell count 13,500, INR 1.5, potassium 2.9, BUN 67, creatinine 2.5, AST 1214, ALT 949, an alkaline phosphatase of 194. 10/30/2019 She was seen and examined this morning. Mental status continues to improve. Patient is awake, alert and answering questions more appropriately compared to yesterday. Vital signs are stable. She continues on Lasix and dobutamine drips. She is afebrile. Labs continued to show improvement with a BUN 45, creatinine 1.51, INR 1.2, AST 559, ALT 703 and alkaline phosphatase of 187. Eliquis remains on hold. Objective - Vital Signs Vital signs: Vital Signs Temp 97.4 F L 10/30/19 08:30 Pulse 86 10/30/19 08:30 Resp 16 10/30/19 08:30 BP 92/63 10/30/19 08:30 Pulse Ox 98 10/30/19 08:30 Intake & Output 10/29/19 10/30/19 10/30/19 18:59 06:59 18:59 Intake Total 480 250 120 Output Total 3400 1875 575 Balance -2920 -1625 -596 Weight 77 kg 73 kg Intake: IV 100 Furosemide 100 mg In 100 Sodium Chloride 0.9% 90 ml @ 10 MG/HR 10 mls/hr IV .Q10H [facility] Rx#: [id number] Intake, IV Titration 100 Amount Furosemide 100 mg In 100 Sodium Chloride 0.9% 90 ml @ 10 MG/HR 10 mls/hr IV .Q10H [facility] Rx#: [id number] Oral 480 50 120 Output: Urine 1400 1875 575 Uretheral (Silveira) 500 Hemodialysis 2000 Other: Voiding Method Indwelling Catheter Indwelling Catheter Indwelling Catheter - Exam PHYSICAL EXAMINATION: HEENT: Head is atraumatic, normocephalic. Pupils equal, round. Neck is supple. There is no elevated jugular venous pressure. HEART EXAMINATION: Heart sounds irregularly irregular, S1 and S2 with a systolic murmur CHEST EXAMINATION: Lungs reveal diminished air entry bilateral bases. No chest wall tenderness is noted on palpation or with deep breathing. ABDOMEN: Soft, nontender. Bowel sounds are heard. No organomegaly noted. EXTREMITIES: 2+ peripheral pulses with evidence of trace to mild peripheral edema and no calf tenderness noted. Right femoral dialysis catheter noted. NEUROLOGIC patient is more awake, alert, answering questions more appropriately . - Labs CBC & Chem 7: 10/30/19 06:14 10/30/19 06:14 Labs: Abnormal Lab Results - Last 24 Hours (Table) 10/29/19 10/29/19 10/30/19 Range/Units 16:36 20:46 06:14 WBC 13.3 H (3.8-10.6) k/uL MCHC 30.2 L (31.0-37.0) g/dL INR (<1.2) Potassium (3.5-5.1) mmol/L Chloride (98-107) mmol/L BUN (7-17) mg/dL Creatinine (0.52-1.04) mg/dL Glucose (74-99) mg/dL POC Glucose (mg/dL) 182 H 190 H (75-99) mg/dL AST (14-36) U/L ALT (4-34) U/L Alkaline Phosphatase (38-126) U/L Total Protein (6.3-8.2) g/dL Albumin (3.5-5.0) g/dL 10/30/19 10/30/19 10/30/19 Range/Units 06:14 06:14 06:21 WBC (3.8-10.6) k/uL MCHC (31.0-37.0) g/dL INR 1.2 H (<1.2) Potassium 3.1 L (3.5-5.1) mmol/L Chloride 108 H (98-107) mmol/L BUN 45 H (7-17) mg/dL Creatinine 1.51 H (0.52-1.04) mg/dL Glucose 118 H (74-99) mg/dL POC Glucose (mg/dL) 130 H (75-99) mg/dL AST 559 H (14-36) U/L ALT 703 H (4-34) U/L Alkaline Phosphatase 187 H (38-126) U/L Total Protein 6.2 L (6.3-8.2) g/dL Albumin 3.1 L (3.5-5.0) g/dL Microbiology - Last 24 Hours (Table) 10/25/19 12:36 Blood Culture - Preliminary Blood No Growth after 96 hours Assessment and Plan Assessment: #1 multisystem organ failure with evidence of CHF, EF 20-25%, SHERIDAN on CKD, and acute liver failure, #2 acute on chronic systolic congestive heart failure with severely impaired LV systolic function with EF 20-25% #3 minimally abnormal troponins, not consistent with acute coronary syndrome however underlying ischemia cannot be ruled out at this time #4 persistent atrial fibrillation, INR 2.0, anticoagulation is on hold at this time #5 hypertension #6 hyperlipidemia #7 obstructive sleep apnea #8 abnormal d-dimer with VQ scan showing low and of intermediate probability for PE #9 acute kidney injury on chronic kidney disease, may be dealing with cardiorena l syndrome, being followed by nephrology, currently undergoing dialysis #10 acute liver failure #11 Hypokalemia Plan: From cardiology's perspective, we will resume anticoagulation. We will discontinue dobutamine drip. Diuretics per nephrology. Continue to follow closely with nephrology. We will provide further recommendations accordingly. TOBACCO HANGER note has been reviewed, I agree with a documented findings and plan of care. Patient was seen and examined.
[2019-10-30] MEDS: METOPROLOL TARTRATE 12.5 MG TAB PO SCH ×2 (11:24→20:23)
[2019-10-30] MEDS: APIXABAN 2.5 MG TABLET PO SCH ×2 (11:25→20:23)
--- NOTE | 2019-10-30 11:39 | P.PN ---
Subjective Patient is seen in follow-up for acute kidney injury. She was started on hemodialysis October 27. Tolerated 1 L of ultrafiltration yesterday and 2 L yesterday. She is maintained on dobutamine as well as Lasix drip. Echocardiogram revealed ejection fraction of 20-25%. Mentation is improving. She is currently sitting up in chair. She has a Silveira catheter. Urine output over 3 L in the last 24 hours. Vital signs are stable. Blood pressure on the lower side. General: The patient appeared well nourished and normally developed. HEENT: Head exam is unremarkable. Neck is without jugular venous distension. LUNGS: Lungs are clear to auscultation and percussion. Breath sounds decreased. HEART: Rate and Rhythm are regular. ABDOMEN: Soft, nontender. EXTREMITITES: 1+ edema. Objective - Vital Signs Vital signs: Vital Signs Temp 97.4 F L 10/30/19 08:30 Pulse 86 10/30/19 11:23 Resp 16 10/30/19 11:23 BP 96/63 10/30/19 11:23 Pulse Ox 98 10/30/19 11:23 Intake & Output 10/29/19 10/30/19 10/30/19 18:59 06:59 18:59 Intake Total 480 250 204.5 Output Total 3400 1875 575 Balance -2920 -1625 -370.5 Weight 77 kg 73 kg Intake: IV 100 Furosemide 100 mg In 100 Sodium Chloride 0.9% 90 ml @ 10 MG/HR 10 mls/hr IV .Q10H [facility] Rx#: [id number] Intake, IV Titration 100 84.5 Amount Furosemide 100 mg In 100 84.5 Sodium Chloride 0.9% 90 ml @ 10 MG/HR 10 mls/hr IV .Q10H [facility] Rx#: [id number] Oral 480 50 120 Output: Urine 1400 1875 575 Uretheral (Silveira) 500 Hemodialysis 2000 Other: Voiding Method Indwelling Catheter Indwelling Catheter Indwelling Catheter - Labs CBC & Chem 7: 10/30/19 06:14 10/30/19 06:14 Labs: Abnormal Lab Results - Last 24 Hours (Table) 10/29/19 10/29/19 10/30/19 Range/Units 16:36 20:46 06:14 WBC 13.3 H (3.8-10.6) k/uL MCHC 30.2 L (31.0-37.0) g/dL INR (<1.2) Potassium (3.5-5.1) mmol/L Chloride (98-107) mmol/L BUN (7-17) mg/dL Creatinine (0.52-1.04) mg/dL Glucose (74-99) mg/dL POC Glucose (mg/dL) 182 H 190 H (75-99) mg/dL AST (14-36) U/L ALT (4-34) U/L Alkaline Phosphatase (38-126) U/L Total Protein (6.3-8.2) g/dL Albumin (3.5-5.0) g/dL 10/30/19 10/30/19 10/30/19 Range/Units 06:14 06:14 06:21 WBC (3.8-10.6) k/uL MCHC (31.0-37.0) g/dL INR 1.2 H (<1.2) Potassium 3.1 L (3.5-5.1) mmol/L Chloride 108 H (98-107) mmol/L BUN 45 H (7-17) mg/dL Creatinine 1.51 H (0.52-1.04) mg/dL Glucose 118 H (74-99) mg/dL POC Glucose (mg/dL) 130 H (75-99) mg/dL AST 559 H (14-36) U/L ALT 703 H (4-34) U/L Alkaline Phosphatase 187 H (38-126) U/L Total Protein 6.2 L (6.3-8.2) g/dL Albumin 3.1 L (3.5-5.0) g/dL Microbiology - Last 24 Hours (Table) 10/25/19 12:36 Blood Culture - Preliminary Blood No Growth after 96 hours Assessment and Plan Plan: Assessment: 1. Acute kidney injury secondary to ATN secondary to cardiorenal syndrome. Creatinine peaked at 3.67 this admission. No hydronephrosis noted on CAT scan. Creatinine was 0.74 in June 2018. Started on hemodialysis October 27 due to volume overload and uremia. Last hemodialysis October 28. 2. Volume overload. Improving. 3. Metabolic acidosis secondary to acute kidney injury, NS, and lactic acidosis. Improved. 4. Possible ischemic bowel. Surgery consulted. LDH mildly elevated. 5. Shock liver secondary to hypoperfusion. GI following. Better. 6. Acute on chronic systolic CHF with ejection fraction of 20-25% with moderate tricuspid regurgitation. 7. Hypokalemia secondary to diuresis. 8. Hypomagnesemia secondary to diuresis. Plan: Hold off on hemodialysis. Continue to assess daily. Maintain dobutamine and Lasix drip for now. Continue to monitor renal function and urine output closely. Replace potassium. 80 mEq today. Replace magnesium. 2 g IV today. Discontinue oral sodium bicarbonate. Repeat electrolytes the morning.
[2019-10-30 12:11] LABS: Glucose,Whole Blood 161 mg/dL (75-99)
[2019-10-30] MEDS: POTASSIUM CHLORIDE ER 20 MEQ TAB.ER PO SCH ×3 (13:48→17:18)
[2019-10-30] MEDS: MAGNESIUM SULFATE-D5W PMX 1 GM in DEXTROSE/WATER 1 100ML.BAG IVPB SCH ×2 (13:48→15:23)
[2019-10-30 16:16] LABS: Glucose,Whole Blood 225 mg/dL (75-99)
--- NOTE | 2019-10-30 18:29 | PN ---
PROGRESS NOTE DATE OF DICTATION: 10/30/2019 This patient is a 74-year-old pleasant white female admitted to the hospital with congestive heart failure and altered mental status. She is gradually improving. She is more awake and alert today. She denies any abdominal pain. No nausea, vomiting. She reports no rectal bleeding or melena. She was noted to have acute kidney injury and was started on hemodialysis 2 days ago. Her BUN and creatinine are gradually improving. Mental status has significantly improved. We are following for elevated serum transaminases, which are also improving. PHYSICAL EXAMINATION: She appears comfortable. No apparent distress. VITAL SIGNS: Stable. Blood pressure 96/58, pulse rate 86, temperature 97.4. HEENT examination unremarkable. Conjunctivae pink. Sclerae anicteric. Oral cavity no lesions. NECK: No JVD or lymph node enlargement. CHEST: Clear to auscultation. HEART: Regular rate and rhythm. ABDOMEN: Soft. It was non-tender, non-distended. Bowel sounds are positive. No organomegaly. EXTREMITIES: No pedal edema. SKIN: No rashes. NEUROLOGIC: Alert and oriented x3. No focal deficits. LABS: Labs from today show AST is down to 559. ALT is down to 703, alkaline phosphatase 182, bilirubin is normal. BUN is 45, creatinine 1.51. Hemoglobin is 13.3 g/dL. IMPRESSION: 1. Acute elevation of serum transaminases secondary to hypoperfusion/ischemic hepatitis. LFTs are gradually improving. Hemodynamics status appears to be more stable. 2. Acute kidney injury, started on hemodialysis 2 days ago. BUN and creatinine are improving. 3. Altered mental status secondary to metabolic encephalopathy; has significantly improved. 4. Questionable history of ischemic hepatitis. Patient continues to remain asymptomatic with no abdominal pain. RECOMMENDATIONS: 1. Monitor LFTs closely. 2. Continue with present symptomatic and supportive care. 3. Repeat labs in the morning. 4. Will follow with you closely. Thank you for this consultation. MMODL / IJN: [id number] /
[2019-10-30 20:04] LABS: Glucose,Whole Blood 195 mg/dL (75-99)
[2019-10-30] MEDS ORDERED: METOPROLOL TARTRATE 12.5 MG TAB PO SCH (21:00)
[2019-10-31 06:16] LABS: Glucose,Whole Blood 172 mg/dL (75-99)
[2019-10-31] MEDS: FUROSEMIDE 100 MG in SODIUM CHLORIDE 0.9% 90 ML IV SCH ×2 (07:03→08:26)
[2019-10-31] MEDS: INSULIN ASPART (NovoLOG) 100 UNIT/ML VIAL SQ SCH ×4 (07:07→21:06)
[2019-10-31 07:28] LABS: HGB 13.5 gm/dL (11.4-16.0); Hypochromasia Moderate; MCH 28.7 pg (25.0-35.0); MCHC 31.4 g/dL (31.0-37.0); MCV 91.4 fL (80.0-100.0); Mean Platelet Volume 10.9; Platelet Count 197 k/uL (150-450)
[2019-10-31 07:36] LABS: INR 1.2 (<1.2); Prothrombin Time 11.8 sec (9.0-12.0)
[2019-10-31 07:46] LABS: Albumin 3.3 g/dL (3.5-5.0); Calcium 8.7 mg/dL (8.4-10.2); Magnesium 1.8 mg/dL (1.6-2.3); Potassium 3.2 mmol/L (3.5-5.1); Total Protein 6.3 g/dL (6.3-8.2)
[2019-10-31] MEDS: APIXABAN 2.5 MG TABLET PO SCH ×2 (08:25→21:05)
[2019-10-31] MEDS: METOPROLOL TARTRATE 12.5 MG TAB PO SCH ×2 (08:25→21:06)
[2019-10-31] MEDS: SERTRALINE 50 MG TAB PO SCH (08:26)
[2019-10-31] MEDS: METHIMAZOLE 5 MG TAB PO SCH (08:26)
[2019-10-31] MEDS: PANTOPRAZOLE 40 MG TABLET PO SCH ×2 (08:26→21:06)
[2019-10-31] MEDS ORDERED: QUEtiapine 25 MG TAB PO PRN (09:19)
--- NOTE | 2019-10-31 09:42 | P.PN ---
Subjective Progress Note Date: 10/31/19 This is a 74-year-old female patient of Dr. Nelson with past medical history of breast cancer post right sided mastectomy, hyperglycemia, hyperthyroidism, obstructive sleep apnea, chronic atrial fibrillation on eliquis, hypertension, hyperlipidemia. Patient complains of feeling tired, nauseated and short of breath and cough. She states she has had nausea and vomiting along with since weekend. She denies having any fever or chills. Lab work revealed WBC 13.6, hemoglobin 14.3, platelet count 372. Sodium 141, potassium 3.7, chloride 109, CO2 17, BUN 24 and creatinine 1.21. B lood sugar was 149. AST of 55 and alkaline phosphatase 188, ALT 29. Lipase 386 INR 1.2. Initial lactic acid 3.3. Troponin 0.035. ProBNP 9000. EKG was atrial fibrillation with a rate of 90. Chest x-ray reveals congestive heart failure with pleural fluid that appears new. Large hiatal hernia unchanged. CAT scan of the abdomen and pelvis revealed moderate cardiomegaly. Bilateral moderate pleural effusions and basilar pulmonary infiltrates and atelectasis. Abdominal ascites. This could be related to chronic heart failure. Ascites and pleural fluid are new compared to old exam. 10/25: Patient continues to have shortness of breath and speech is slow. She remains slightly confused but oriented 3. Patient is not back to her baseline. Her abdomen is better. She denies abdominal pain. She is on a full liquid diet. Consult with Dr. Valentin added her concern for ischemic bowel. Consult also added for Dr. Koroma for pleural effusion. emergency response coordinator is atrial fibrillation. Su catheter was placed for urinary retention. VQ scan is low end of intermediate probability for pulmonary embolism. Patient has been seen in follow-up by cardiology for possible non-ST elevated myocardial infarction with recommendations to continue current medication and continue diuretics. Echocardiogram pending. Patient is followed by nephrology and seen yesterday started on a bicarb drip and discontinued Lasix. Today, oral sodium bicarb was added and Lasix 80 mg IV once. Repeat chest x-ray was ordered. Patient has been afebrile, heart rate 88, blood pressure 105/69, pulse ox 94% on 2 L nasal cannula. Repeat blood work reveals sodium 142, potassium 4.7, chloride 107, CO2 17, BUN 48 creatinine 2.20. Blood sugars are running between 96 and 145. Urinalysis cloudy, nitrate and leukoesterase negative. Acetone was negative, LDH 762. Serum osmolality 305. 10/26: Patient have increasing confusion today with significantly elevated liver function tests with AST of 3251, ALT 1119, alkaline phosphatase 233. We have added and lab work for ammonia level which came back 44 and INR of 2.4. Eliquis discontinued. Consult with GI has been added. Concern for drug induced hepatitis and azithromycin and ceftriaxone will be discontinued. Patient is currently on ceftriaxone only. Acute hepatitis panel and abdominal ultrasound ordered. Patient has been started on dobutamine drip and Lasix drip by nephrology. Echocardiogram reveals EF of 20-25%, mild aortic regurgitation, mild mitral regurgitation, moderate tricuspid regurgitation, mild pulmonary hypertension. Chest x-ray from yesterday reveals stable bilateral infiltrate and pleural effusion. Correlate for venous congestion and CHF may be slightly improved. Underlying pneumonia not excluded. Discussed case with Dr. Valentin and he feels that bowel symptoms and elevated liver function tests are related to ischemic bowel secondary to hypoperfusion from heart failure. 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 Patient is followed by multiple consultants. 10/27: The patient's mental status continues to decline. Patient is unable to take any oral intake. She did take small amount of liquid this morning for her medication and was aspirating. She had worsening AST 2718, ALT 1246, phosphatase 219, total bilirubin is 0.6, INR 2.0. WBC 15.5, hemoglobin 12.2. Renal function continues to worsen as well with a BUN of 85 and creatinine 3.67. Patient is currently on dobutamine and Lasix drips. She has had runs of V. tach 1-2 times per day for the past 2 days. She has been afebrile, heart rate 90, blood pressure 94/56, pulse ox 96% on 2 L. emergency response coordinator member of [employer] is atrial fibrillation with controlled rate. Patient's oral medications have been either discontinued or changed to IV. Abdominal ultrasound revealed findings due to hepatocellular disease. Prominence of the common bile duct may be due to patient's age and postcholecystectomy change. Exam limited. The patient was seen by GI yesterday and findings consistent with hypoperfusion causing ischemic hepatitis CAT scan of the brain ordered this morning which revealed mild age-related atrophy. Contacted patient's son Faraz and given up date regarding her condition and worsening condition and prognosis. He and his sister care will come up to see the patient. Confirm the patient is a full code . 10/28: Patient's mental status is improving today. Appears patient may be able to swallow and follow commands, speech therapy will be added. Consult for neurology will be added. Yesterday, Dr. Perales placed a right groin dialysis catheter. Patient underwent hemodialysis yesterday and scheduled for repeat dialysis today. Dobutamine and Lasix drips on hold this time. She has been afebrile, heart rate 77, blood pressure 114/53 and pulse ox 96% on 2 L nasal cannula. Repeat blood work today reveals improvement of her liver function tests with total bilirubin 0.6, AST 1214, ALT 949, alkaline phosphatase 194, INR 1.5. Renal function is improved with BUN of 67 creatinine 2.5. Potassium 2.9. WBC 15.5, hemoglobin 11.8. Blood sugars are running between 111 159. Patient is currently on scale insulin only due to no oral intake. 10/29: Patient's mental status is improving. She knows where she has that she is having some hallucinations. She is cooperative and able to follow commands. She has had improvement of her kidney function and liver function tests. Patient has been afebrile, heart rate 82, blood pressure 113/63, pulse ox 99% on 2 L nasal cannula. WBC 13.3, hemoglobin 13.3, platelets 173. INR 1.2, AST 559, ALT 703, alkaline phosphatase 187, total bilirubin 0.8. Potassium 3.1, chloride 108, BUN 45 creatinine 1.51. Blood sugars run between 118-190. Patient was seen yesterday by neurology with recommendations continue treating underlying cause of metabolic encephalopathy. Patient was evaluated by speech therapy with no overt signs and symptoms of aspiration and recommendations for pured diet with thin liquids and supervision, no straws. Patient underwent hemodialysis yesterday with removal of 2 L of fluid. She has had good urine output. She is continued on dobutamine and Lasix drips. 10/30 patient's mental status is improving answer questions appropriately. In between the conversation patient started mentioning about her son's demise today morning and was agitated about not having to have her phone with her. Patient was also noted to see things in her room which were not there. EKG to be done today to look for patient's QT interval. Seroquel can be started at 12.5 twice a day as needed. Judicious use of antipsychotics has to be done as patient has a low ejection fraction. Continue Lasix drip per nephrology no plan for hemodialysis today. Patient's prognosis is poor. elliquis resumed today. Dobutamine drip on hold. Review of Systems Constitutional: No fever, no chills, reports weakness, fatigue, reports daytime sleepiness. EENT: Reports headache. No nasal drainage or congestion. No epistaxis. No sor e throat. Lungs: No shortness of breath, cough, no sputum production. No wheezing. Cardiovascular: No chest pain, mild lower extremity edema. No palpitations. No paroxysmal nocturnal dyspnea. No orthopnea. No lightheadedness or dizziness. No syncopal episodes. Abdominal: No abdominal pain. No nausea, vomiting. No diarrhea. No bloody or tarry stools. Genitourinary: No dysuria, increased frequency, urgency. Urinary retention- su. Musculoskeletal: Reports myalgias. Reports muscle weakness, Reports gait dysfunction, no frequent falls. No back pain. No neck pain. Integumentary: No wounds, no lesions. No rash or pruritus. No unusual bruising. Neurologic: No aphasia. No facial droop. Reports change in mentation-improving. Positive for psychosis No head injury. Psychiatric: No depression. No anxiety. No mood swings. Reports hallucinations. Endocrine: Reports abnormal blood sugars. Objective - Vital Signs Vital signs: Vital Signs Temp 98.0 F 10/31/19 03:44 Pulse 92 10/31/19 03:44 Resp 18 10/31/19 03:44 BP 109/72 10/31/19 03:44 Pulse Ox 100 10/31/19 03:44 Intake & Output 10/30/19 10/31/19 10/31/19 18:59 06:59 18:59 Intake Total 1004.5 89.667 Output Total 575 1500 Balance 429.5 -1410.333 Weight 70 kg Intake: Intake, IV Titration 84.5 89.667 Amount Furosemide 100 mg In 84.5 89.667 Sodium Chloride 0.9% 90 ml @ 10 MG/HR 10 mls/hr IV .Q10H [facility] Rx#: [id number] Oral 920 Output: Urine 575 1500 Uretheral (Su) 1500 Other: Voiding Method Indwelling Catheter Indwelling Catheter # Bowel Movements 1 2 - Exam Physical Examination Gen: This is a 74-year-old female. Patient is resting in bed in no acute distress. Oriented 2, agitated intermittently HEENT: Head is atraumatic, normocephalic. Pupils equal, round. Sclerae is anicteric. NECK: Supple. No JVD. No lymphadenopathy. No thyromegaly. LUNGS: Clear to auscultation. No wheezes or rhonchi. No intercostal re tractions. HEART: Irregularly irregular rate and rhythm. Systolic murmur. ABDOMEN: Soft. Bowel sounds are present. No masses. No tenderness. No right upper quadrant or epigastric tenderness noted. EXTREMITIES: 1+ pedal edema. No calf tenderness. NEUROLOGICAL: Patient is awake, alert and oriented to person and place. Significant weakness noted. - Labs CBC & Chem 7: 10/31/19 07:03 10/31/19 07:03 Labs: Abnormal Lab Results - Last 24 Hours (Table) 10/30/19 10/30/19 10/30/19 Range/Units 06:14 11:51 16:14 Potassium 3.1 L (3.5-5.1) mmol/L Chloride 108 H (98-107) mmol/L BUN 45 H (7-17) mg/dL Creatinine 1.51 H (0.52-1.04) mg/dL Glucose 118 H (74-99) mg/dL POC Glucose (mg/dL) 161 H 225 H (75-99) mg/dL AST 559 H (14-36) U/L ALT 703 H (4-34) U/L Alkaline Phosphatase 187 H (38-126) U/L Total Protein 6.2 L (6.3-8.2) g/dL Albumin 3.1 L (3.5-5.0) g/dL 10/30/19 10/31/19 Range/Units 20:02 06:15 Potassium (3.5-5.1) mmol/L Chloride (98-107) mmol/L BUN (7-17) mg/dL Creatinine (0.52-1.04) mg/dL Glucose (74-99) mg/dL POC Glucose (mg/dL) 195 H 172 H (75-99) mg/dL AST (14-36) U/L ALT (4-34) U/L Alkaline Phosphatase (38-126) U/L Total Protein (6.3-8.2) g/dL Albumin (3.5-5.0) g/dL Microbiology - Last 24 Hours (Table) 10/25/19 12:36 Blood Culture - Preliminary Blood No Growth after 120 hours Assessment and Plan Plan: 1. Acute on chronic systolic heart failure with pleural effusions and ascites. Previous echocardiogram with EF of 40-45 % from June 2018. Repeat echocardiogram reveals EF of 20-25%. Nephrology - continue Lasix drips. Continue Lopressor changed back to oral 12.5 mg twice daily. Monitor I&O and daily weights. Consult with Dr. Koroma appreciated regarding pleural effusions- no plan for thoracentesis. 2. Possible non-ST elevated myocardial infarction. Cardiology consult. Continue Lopressor, discontinue Lipitor 20 mg at bedtime. 3. Acute kidney injury with chronic kidney disease stage II Secondary to cardiorenal syndrome Nephrology consult appreciated. Patient is status post renal dialysis catheter, hemodialysis 10/28 and 10/29. No plan for further hemodialysis 4. Metabolic acidosis secondary to acute kidney injury, normal saline, lactic acidosis. Nephrology consult. 5. Possible pneumonia. Ruled out by pulmonary medicine. Discontinue ceftriaxone and azithromycin. 6. Difficulty breathing with elevated d-dimer of 2.38. VQ scan ruled out PE. Patient states she has not missed any doses of eliquis. 7. Chronic atrial fibrillation. Resume eliquis 5 mg twice daily and continue Lopressor. 8. Transaminitis possibly related to heart failure with underlying liver disease, hepatorenal syndrome. Recheck liver function tests in the morning. Hold Lopid and Lipitor. A azithromycin and ceftriaxone discontinued. GI consult appreciated. Eliquis will be resumed as INR is at 1.2. 9. Multiorgan failure secondary to heart failure with ejection fraction of 20- 25%, acute kidney injury, acute liver failure, elevated troponins. 10. Nausea and vomiting possibly related to heart failure, liver congestion, history of Matthews. Continue Zofran as needed for nausea, Protonix 40 mg IV twice daily. Consult with Dr. Valentin. Diet advanced to pured with thin liquids, aspiration precautions. 11. Metabolic encephalopathy (POA) secondary to hepatorenal syndrome. CAT scan of the brain negative. Consult with neurology appreciated. 12. Obstructive sleep apnea on CPAP. 13. Hypothyroidism. Continue Tapazole 5 mg daily. 14. DVT prophylaxis. Elevated INR. Hold eliquis. 15. GI prophylaxis. Protonix. 16. Urinary retention. Su catheter placed. 17. COVID-19 infection not present. 18. Dyslipidemia. Hold Lopid 600 mg twice daily. 19. Borderline diabetes. Patient will be started on NovoLog scale before meals and at bedtime, hemoglobin A1c 6.0. 20. Agitation likely secondary to delirium. Continue to reorient the patient. Avoid antipsychotic as much as possible. We'll initiate on Seroquel low-dose 12.5 twice a day as needed. EKG ordered to assess for QT prolongation CODE STATUS full code. Prognosis guarded. Discharge plan: Anticipate need for subacute rehab. Patient most likely will be ready for discharge on Saturday. Social work will be updated.
[2019-10-31 11:51] LABS: Glucose,Whole Blood 173 mg/dL (75-99)
--- NOTE | 2019-10-31 13:17 | P.PN ---
Subjective Progress Note Date: 10/31/19 Follow-up for acute kidney injury. Urine output of 2 L within net negative of 850 ML's in the last 24 hours. Objective - Vital Signs Vital signs: Vital Signs Temp 98 F 10/31/19 11:53 Pulse 93 10/31/19 11:53 Resp 16 10/31/19 11:53 BP 102/59 10/31/19 11:53 Pulse Ox 95 10/31/19 11:53 Intake & Output 10/30/19 10/31/19 10/31/19 18:59 06:59 18:59 Intake Total 1004.5 189.667 Output Total 575 1500 Balance 429.5 -1310.333 Weight 70 kg Intake: Intake, IV Titration 84.5 189.667 Amount Furosemide 100 mg In 84.5 189.667 Sodium Chloride 0.9% 90 ml @ 10 MG/HR 10 mls/hr IV .Q10H [facility] Rx#: [id number] Oral 920 Output: Urine 575 1500 Uretheral (Silveira) 1500 Other: Voiding Method Indwelling Catheter Indwelling Catheter Indwelling Catheter # Bowel Movements 1 2 - Exam No acute distress S1-S2 heard Lungs clear decreased breath sounds Abdomen soft Trace edema Silveira catheter - Labs CBC & Chem 7: 10/31/19 07:03 10/31/19 07:03 Labs: Abnormal Lab Results - Last 24 Hours (Table) 10/30/19 10/30/19 10/31/19 Range/Units 16:14 20:02 06:15 WBC (3.8-10.6) k/uL INR (<1.2) Potassium (3.5-5.1) mmol/L BUN (7-17) mg/dL Creatinine (0.52-1.04) mg/dL Glucose (74-99) mg/dL POC Glucose (mg/dL) 225 H 195 H 172 H (75-99) mg/dL AST (14-36) U/L ALT (4-34) U/L Alkaline Phosphatase (38-126) U/L Albumin (3.5-5.0) g/dL 10/31/19 10/31/19 10/31/19 Range/Units 07:03 07:03 07:03 WBC 17.0 H (3.8-10.6) k/uL INR 1.2 H (<1.2) Potassium 3.2 L (3.5-5.1) mmol/L BUN 45 H (7-17) mg/dL Creatinine 1.32 H (0.52-1.04) mg/dL Glucose 122 H (74-99) mg/dL POC Glucose (mg/dL) (75-99) mg/dL AST 242 H (14-36) U/L ALT 525 H (4-34) U/L Alkaline Phosphatase 189 H (38-126) U/L Albumin 3.3 L (3.5-5.0) g/dL 10/31/19 Range/Units 11:50 WBC (3.8-10.6) k/uL INR (<1.2) Potassium (3.5-5.1) mmol/L BUN (7-17) mg/dL Creatinine (0.52-1.04) mg/dL Glucose (74-99) mg/dL POC Glucose (mg/dL) 173 H (75-99) mg/dL AST (14-36) U/L ALT (4-34) U/L Alkaline Phosphatase (38-126) U/L Albumin (3.5-5.0) g/dL Microbiology - Last 24 Hours (Table) 10/25/19 12:36 Blood Culture - Preliminary Blood No Growth after 120 hours Assessment and Plan Assessment: #1 Nonoliguric acute kidney injury secondary to type I cardiorenal syndrome. Baseline creatinine 0.7 MG per DL in 2019. #2 acute on chronic systolic CHF decompensated with the EF of 20-25%. #3 hypotensive episodes #4 volume overload improving #5 anemia secondary to diuretic use Plan: #1 stopped Lasix drip and changed to torsemide 40 mg by mouth daily. #2 renal function stable and improving. Replace electrolytes #3 add midodrine for hemodynamic support #4 no acute indication for renal replacement therapy at this time.
--- NOTE | 2019-10-31 14:59 | P.PN ---
Subjective Progress Note Date: 10/31/19 This is a pleasant 74-year-old female with a history of hypertension, obstructive sleep apnea, dyslipidemia, breast cancer, CHF and atrial fibrillation who presented with complaints of nausea and vomiting. Patient remains quite drowsy and is a poor historian. HPI and history were obtained mostly from the chart. Chest x-ray on admission did show pulmonary vascular congestion with a large hiatal hernia. EKG showed atrial fibrillation with left bundle branch block. CT of the abdomen and pelvis showed moderate bilateral pleural effusions with bibasilar pulmonary infiltrates and atelectasis, abdomina l ascites. NT proBNP is elevated at 19,000. She's been on IV Lasix 40 mg by mouth every 8 hours. Labs this morning show significant increase in her BUN and creatinine which yesterday were 27 and 1.29 and this morning were 48 and 2.2. At the time of my examination, patient is resting comfortably in bed. Again she is quite drowsy. She does deny complaints of nausea or vomiting. Has no complaints of shortness of breath. Her only complaint at this time is of feeling tired. 10/27/2019 The patient was seen and examined resting in bed. She is lethargic this morning. Opens eyes to verbal stimuli but does not respond verbally. Echocardiogram showed severely impaired LV systolic function with an ejection fraction of 20-25% with mildly enlarged RV, mild AR with possible bicuspid aortic valve, moderate TR and mild pulmonary hypertension. Labs show further elevation of BUN and creatinine at 67 and 3.28, INR of 2.4 and elevated LFTs with an AST of 3251, ALT 1119 and alkaline phosphatase of 233, ammonia level 44 10/28/2019 Patient was seen and examined this morning. Patient's mental status continues to decline. She is quite lethargic and difficult to arouse. Labs this morning showed a white blood cell count 15,500, INR 2.0, BUN increasing to 85 and creatinine increasing at 3.67. LFTs relatively stable with an AST of 2718, ALT 1246 and alkaline phosphatase of 219. She was seen by GI yesterday who feels elevation of liver enzymes are related to ischemic hepatitis secondary to h ypoperfusion. Patient is being maintained on dobutamine at 2.5 g/kg/min and Lasix drip at 10 mg an hour. Patient is being followed by nephrology who is anticipating the need for dialysis. She remains in atrial fibrillation on the monitor with a controlled ventricular response. Occasional brief episodes of nonsustained ventricular tachycardia. She remains on metoprolol tartrate 12.5 mg by mouth twice a day. 10/29/2019 Patient was seen and examined this morning. Mental status has improved. The patient is awake alert and answering some questions. She underwent placement of a dialysis catheter last night by Dr. Perales. She underwent 2 hour hemodialysis last night and planning for 3 hour ultrafiltration today. At the time of my examination she is currently undergoing hemodialysis. Blood pressure has improved maintaining above 100 mmHg systolic. She is afebrile and maintaining an oxygen saturation of around 96-98% on 2 L nasal cannula. Labs this morning show white blood cell count 13,500, INR 1.5, potassium 2.9, BUN 67, creatinine 2.5, AST 1214, ALT 949, an alkaline phosphatase of 194. 10/30/2019 She was seen and examined this morning. Mental status continues to improve. Patient is awake, alert and answering questions more appropriately compared to yesterday. Vital signs are stable. She continues on Lasix and dobutamine drips. She is afebrile. Labs continued to show improvement with a BUN 45, creatinine 1.51, INR 1.2, AST 559, ALT 703 and alkaline phosphatase of 187. David remains on hold. 10/31/2019 Patient was seen and examined this morning resting comfortably in bed. Mental status continues to improve. Patient is awake, alert and oriented 3 with some mild confusion and forgetfulness noted. Labs continued to show improvement with a BUN of 45 and creatinine 1.32, AST 242, ALT 525 and alkaline phosphatase of 189. Potassium is low at 3.2 and supplementation has been ordered by nephrology. She has been transitioned to oral diuretics by nephrology. Urine putput has increased. Objective - Vital Signs Vital signs: Vital Signs Temp 98 F 10/31/19 11:53 Pulse 93 10/31/19 11:53 Resp 16 10/31/19 11:53 BP 102/59 10/31/19 11:53 Pulse Ox 95 10/31/19 11:53 Intake & Output 10/30/19 10/31/19 10/31/19 18:59 06:59 18:59 Intake Total 1004.5 189.667 Output Total 575 1500 Balance 429.5 -1310.333 Weight 70 kg Intake: Intake, IV Titration 84.5 189.667 Amount Furosemide 100 mg In 84.5 189.667 Sodium Chloride 0.9% 90 ml @ 10 MG/HR 10 mls/hr IV .Q10H [facility] Rx#: [id number] Oral 920 Output: Urine 575 1500 Uretheral (Silveira) 1500 Other: Voiding Method Indwelling Catheter Indwelling Catheter Indwelling Catheter # Bowel Movements 1 2 - Exam PHYSICAL EXAMINATION: HEENT: Head is atraumatic, normocephalic. Pupils equal, round. Neck is supple. There is no elevated jugular venous pressure. HEART EXAMINATION: Heart sounds irregularly irregular, S1 and S2 with a systolic murmur CHEST EXAMINATION: Lungs reveal diminished air entry bilateral bases. No chest wall tenderness is noted on palpation or with deep breathing. ABDOMEN: Soft, nontender. Bowel sounds are heard. No organomegaly noted. EXTREMITIES: 2+ peripheral pulses with evidence of trace to mild peripheral edema and no calf tenderness noted. Right femoral dialysis catheter noted. NEUROLOGIC patient is more awake, alert, oriented x3 with some mild confusion and forgetfulness noted. - Labs CBC & Chem 7: 10/31/19 07:03 10/31/19 07:03 Labs: Abnormal Lab Results - Last 24 Hours (Table) 10/30/19 10/30/19 10/31/19 Range/Units 16:14 20:02 06:15 WBC (3.8-10.6) k/uL INR (<1.2) Potassium (3.5-5.1) mmol/L BUN (7-17) mg/dL Creatinine (0.52-1.04) mg/dL Glucose (74-99) mg/dL POC Glucose (mg/dL) 225 H 195 H 172 H (75-99) mg/dL AST (14-36) U/L ALT (4-34) U/L Alkaline Phosphatase (38-126) U/L Albumin (3.5-5.0) g/dL 10/31/19 10/31/19 10/31/19 Range/Units 07:03 07:03 07:03 WBC 17.0 H (3.8-10.6) k/uL INR 1.2 H (<1.2) Potassium 3.2 L (3.5-5.1) mmol/L BUN 45 H (7-17) mg/dL Creatinine 1.32 H (0.52-1.04) mg/dL Glucose 122 H (74-99) mg/dL POC Glucose (mg/dL) (75-99) mg/dL AST 242 H (14-36) U/L ALT 525 H (4-34) U/L Alkaline Phosphatase 189 H (38-126) U/L Albumin 3.3 L (3.5-5.0) g/dL 10/31/19 Range/Units 11:50 WBC (3.8-10.6) k/uL INR (<1.2) Potassium (3.5-5.1) mmol/L BUN (7-17) mg/dL Creatinine (0.52-1.04) mg/dL Glucose (74-99) mg/dL POC Glucose (mg/dL) 173 H (75-99) mg/dL AST (14-36) U/L ALT (4-34) U/L Alkaline Phosphatase (38-126) U/L Albumin (3.5-5.0) g/dL Microbiology - Last 24 Hours (Table) 10/25/19 12:36 Blood Culture - Preliminary Blood No Growth after 120 hours Assessment and Plan Assessment: #1 multisystem organ failure with evidence of CHF, EF 20-25%, SHERIDAN on CKD, and acute liver failure, #2 acute on chronic systolic congestive heart failure with severely impaired LV systolic function with EF 20-25% #3 minimally abnormal troponins, not consistent with acute coronary syndrome however underlying ischemia cannot be ruled out at this time #4 persistent atrial fibrillation, INR 2.0, anticoagulation is on hold at this time #5 hypertension #6 hyperlipidemia #7 obstructive sleep apnea #8 abnormal d-dimer with VQ scan showing low and of intermediate probability for PE #9 acute kidney injury on chronic kidney disease, may be dealing with cardior enal syndrome, being followed by nephrology, improving #10 acute liver failure, improving #11 Hypokalemia Plan: From cardiology's perspective, medications were reviewed and we will continue the same. Will work to optimize cardiac medications dependent on blood pressure. Diuretics per nephrology. Continue to follow closely with nephrology. We will provide further recommendations accordingly. CLINICAL SUPPORT ASSOCIATE note has been reviewed, I agree with a documented findings and plan of care. Patient was seen and examined.
[2019-10-31] MEDS: POTASSIUM CHLORIDE 20 MEQ in WATER FOR INJECTION 1 100ML.BAG IVPB SCH ×2 (15:07→17:03)
[2019-10-31] MEDS: TORSEMIDE 20 MG TAB PO SCH (15:13)
--- NOTE | 2019-10-31 15:39 | P.PN ---
Subjective Progress Note Date: 10/31/19 CHIEF COMPLAINT: Abdominal pain HISTORY OF PRESENT ILLNESS: The patient is a 74-year-old female admitted with complicated medical history including severe congestive heart failure, kidney failure, cardiomegaly, abdominal pain, obstructive sleep apnea, ascites, including chronic atrial fibrillation. During hospitalization, patient developed acute liver shock with abdominal pain. Her mentation has been poor however improving. She is transferred from the intensive care unit to the floor. She is on a pure diet. She denies any abdominal pain at this time. ROS: No reports of nausea and vomiting. No fevers or chills. PHYSICAL EXAM: VITAL SIGNS: Reviewed CONSTITUTIONAL: Well developed and in no acute distress. EYES: Conjuctivae without sclera icterus. Extraocular movements grossly intact. HEAD, EARS, NOSE, THROAT: Moist buccal mucosa. Head is atraumatic, normocephalic. Hears conversational speech. No nasal drainage. NECK: Supple. No thyroidomegaly. RESPIRATORY: Non-labored respirations and equal bilateral excursions. CARDIOVASCULAR: Palpable 2+ radial pulses. ABDOMEN: No peritonitis. Soft. Nontender. MUSCULOSKELETAL: No gross deformity of the lower extremities noted. No clubbing. No cyanosis. SKIN: Good skin turgor. Well perfused. NEUROLOGIC: Cranial nerves II through XII grossly intact. No focal or lateralizing signs. PSYCH: Has confusion. CLINICAL LABS: White blood cell count elevated at 17,000. LFTs at peak over 4037-3622 respectively for AST and ALT. STUDIES: CT of the abdomen and pelvis and independent reviewed demonstrating cardiomegaly with intra-abdominal ascites. No evidence of perforation or free air. This my personal interpretation. ASSESSMENT: 1. Liver shock syndrome with abdominal pain 2. Congestive heart failure PLAN: 1. Monitor LFTs 2. Minimize fluid for severity of congestive heart failure including kidney disease. 3. Diet as tolerated. Objective - Vital Signs Vital signs: Vital Signs Temp 98 F 10/31/19 08:00 Pulse 91 10/31/19 08:00 Resp 16 10/31/19 08:00 BP 93/56 10/31/19 08:00 Pulse Ox 96 10/31/19 08:00 Intake & Output 10/30/19 10/31/19 10/31/19 18:59 06:59 18:59 Intake Total 1004.5 189.667 Output Total 575 1500 Balance 429.5 -1310.333 Weight 70 kg Intake: Intake, IV Titration 84.5 189.667 Amount Furosemide 100 mg In 84.5 189.667 Sodium Chloride 0.9% 90 ml @ 10 MG/HR 10 mls/hr IV .Q10H [facility] Rx#: [id number] Oral 920 Output: Urine 575 1500 Uretheral (Silveira) 1500 Other: Voiding Method Indwelling Catheter Indwelling Catheter Indwelling Catheter # Bowel Movements 1 2 - Labs CBC & Chem 7: 10/31/19 07:03 10/31/19 07:03 Labs: Abnormal Lab Results - Last 24 Hours (Table) 10/30/19 10/30/19 10/30/19 Range/Units 11:51 16:14 20:02 WBC (3.8-10.6) k/uL INR (<1.2) Potassium (3.5-5.1) mmol/L BUN (7-17) mg/dL Creatinine (0.52-1.04) mg/dL Glucose (74-99) mg/dL POC Glucose (mg/dL) 161 H 225 H 195 H (75-99) mg/dL AST (14-36) U/L ALT (4-34) U/L Alkaline Phosphatase (38-126) U/L Albumin (3.5-5.0) g/dL 10/31/19 10/31/19 10/31/19 Range/Units 06:15 07:03 07:03 WBC 17.0 H (3.8-10.6) k/uL INR 1.2 H (<1.2) Potassium (3.5-5.1) mmol/L BUN (7-17) mg/dL Creatinine (0.52-1.04) mg/dL Glucose (74-99) mg/dL POC Glucose (mg/dL) 172 H (75-99) mg/dL AST (14-36) U/L ALT (4-34) U/L Alkaline Phosphatase (38-126) U/L Albumin (3.5-5.0) g/dL 10/31/19 Range/Units 07:03 WBC (3.8-10.6) k/uL INR (<1.2) Potassium 3.2 L (3.5-5.1) mmol/L BUN 45 H (7-17) mg/dL Creatinine 1.32 H (0.52-1.04) mg/dL Glucose 122 H (74-99) mg/dL POC Glucose (mg/dL) (75-99) mg/dL AST 242 H (14-36) U/L ALT 525 H (4-34) U/L Alkaline Phosphatase 189 H (38-126) U/L Albumin 3.3 L (3.5-5.0) g/dL Microbiology - Last 24 Hours (Table) 10/25/19 12:36 Blood Culture - Preliminary Blood No Growth after 120 hours Assessment and Plan (1) Atrial fibrillation Current Visit: Yes Status: Acute Code(s): I48.91 - UNSPECIFIED ATRIAL FIBRILLATION SNOMED Code(s): 90828592 (2) Shock liver Current Visit: Yes Status: Acute Code(s): K72.00 - ACUTE AND SUBACUTE HEPATIC FAILURE WITHOUT COMA SNOMED Code(s): 469911646 (3) Acute pulmonary edema Current Visit: Yes Status: Acute Code(s): J81.0 - ACUTE PULMONARY EDEMA SNOMED Code(s): 58009917 (4) Congestive heart failure Current Visit: Yes Status: Acute Code(s): I50.9 - HEART FAILURE, UNSPECIFIED SNOMED Code(s): 75576580
--- NOTE | 2019-10-31 16:22 | PN ---
PROGRESS NOTE DATE OF SERVICE: 10/31/2019 The patient is a 74-year-old pleasant white female being followed for elevated LFTs. She is doing well. She denies any new symptoms. As per the nursing staff, she was started on lactulose yesterday and has been having diarrhea all through the night. She went about 5 times, all loose and watery in consistency. She denies any abdominal discomfort. No rectal bleeding. PHYSICAL EXAMINATION: Appears comfortable, no apparent distress. Vital signs are stable. Blood pressure is 107/69, temperature 98, pulse rate 93. HEENT examination unremarkable. Conjunctivae pink. Sclerae anicteric. Oral cavity, no lesions. NECK: No JVD or lymph node enlargement. CHEST: Clear to auscultation. HEART: Regular rate and rhythm. ABDOMEN: Soft. Bowel sounds are positive. No organomegaly. EXTREMITIES: No pedal edema. SKIN; No rashes. NEUROLOGIC: Alert and oriented x3. No focal deficits. LABS: From today AST is down to 242, ALT is down to 525 and alkaline phosphatase is 189. T bilirubin is normal. BUN is 45, creatinine 1.32 and WBC 17. IMPRESSION: 1. Acute elevation of serum transaminases secondary to acute hepatocellular injury secondary to hypoperfusion/ischemic hepatitis. LFTs significantly improved. Hemodynamically she is more stable currently. 2. Acute kidney injury from acute tubular necrosis, improving. 3. Mild elevation of ammonia level. The patient was started on oral lactulose. Currently she is having severe diarrhea, will hold off lactulose today and start at 30 mL daily from tomorrow. Thank you for this consultation. We will continue to follow with you closely. MMODL / IJN: [id number] /
[2019-10-31 17:01] LABS: Glucose,Whole Blood 156 mg/dL (75-99)
[2019-10-31] MEDS: MIDODRINE 5 MG TAB PO SCH (17:35)
[2019-10-31 20:19] LABS: Glucose,Whole Blood 268 mg/dL (75-99)
[2019-11-01 06:05] LABS: Glucose,Whole Blood 99 mg/dL (75-99)
[2019-11-01] MEDS: INSULIN ASPART (NovoLOG) 100 UNIT/ML VIAL SQ SCH ×4 (06:24→20:36)
[2019-11-01] MEDS: MIDODRINE 5 MG TAB PO SCH ×3 (06:28→17:34)
[2019-11-01 07:11] LABS: Calcium 8.2 mg/dL (8.4-10.2); Magnesium 1.6 mg/dL (1.6-2.3); Potassium 2.8 mmol/L (3.5-5.1)
[2019-11-01] MEDS ORDERED: POTASSIUM CHLORIDE ER 20 MEQ TAB.ER PO STA (07:29)
--- NOTE | 2019-11-01 07:34 | P.PN ---
Subjective Progress Note Date: 11/01/19 This is a 74-year-old female patient of Dr. Nelson with past medical history of breast cancer post right sided mastectomy, hyperglycemia, hyperthyroidism, obstructive sleep apnea, chronic atrial fibrillation on eliquis, hypertension, hyperlipidemia. Patient complains of feeling tired, nauseated and short of breath and cough. She states she has had nausea and vomiting along with since weekend. She denies having any fever or chills. Lab work revealed WBC 13.6, hemoglobin 14.3, platelet count 372. Sodium 141, potassium 3.7, chloride 109, CO2 17, BUN 24 and creatinine 1.21. B lood sugar was 149. AST of 55 and alkaline phosphatase 188, ALT 29. Lipase 386 INR 1.2. Initial lactic acid 3.3. Troponin 0.035. ProBNP 9000. EKG was atrial fibrillation with a rate of 90. Chest x-ray reveals congestive heart failure with pleural fluid that appears new. Large hiatal hernia unchanged. CAT scan of the abdomen and pelvis revealed moderate cardiomegaly. Bilateral moderate pleural effusions and basilar pulmonary infiltrates and atelectasis. Abdominal ascites. This could be related to chronic heart failure. Ascites and pleural fluid are new compared to old exam. 10/25: Patient continues to have shortness of breath and speech is slow. She remains slightly confused but oriented 3. Patient is not back to her baseline. Her abdomen is better. She denies abdominal pain. She is on a full liquid diet. Consult with Dr. Valentin added her concern for ischemic bowel. Consult also added for Dr. Koroma for pleural effusion. awake overnight monitor is atrial fibrillation. Su catheter was placed for urinary retention. VQ scan is low end of intermediate probability for pulmonary embolism. Patient has been seen in follow-up by cardiology for possible non-ST elevated myocardial infarction with recommendations to continue current medication and continue diuretics. Echocardiogram pending. Patient is followed by nephrology and seen yesterday started on a bicarb drip and discontinued Lasix. Today, oral sodium bicarb was added and Lasix 80 mg IV once. Repeat chest x-ray was ordered. Patient has been afebrile, heart rate 88, blood pressure 105/69, pulse ox 94% on 2 L nasal cannula. Repeat blood work reveals sodium 142, potassium 4.7, chloride 107, CO2 17, BUN 48 creatinine 2.20. Blood sugars are running between 96 and 145. Urinalysis cloudy, nitrate and leukoesterase negative. Acetone was negative, LDH 762. Serum osmolality 305. 10/26: Patient have increasing confusion today with significantly elevated liver function tests with AST of 3251, ALT 1119, alkaline phosphatase 233. We have added and lab work for ammonia level which came back 44 and INR of 2.4. Eliquis discontinued. Consult with GI has been added. Concern for drug induced hepatitis and azithromycin and ceftriaxone will be discontinued. Patient is currently on ceftriaxone only. Acute hepatitis panel and abdominal ultrasound ordered. Patient has been started on dobutamine drip and Lasix drip by nephrology. Echocardiogram reveals EF of 20-25%, mild aortic regurgitation, mild mitral regurgitation, moderate tricuspid regurgitation, mild pulmonary hypertension. Chest x-ray from yesterday reveals stable bilateral infiltrate and pleural effusion. Correlate for venous congestion and CHF may be slightly improved. Underlying pneumonia not excluded. Discussed case with Dr. Valentin and he feels that bowel symptoms and elevated liver function tests are related to ischemic bowel secondary to hypoperfusion from heart failure. 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 Patient is followed by multiple consultants. 10/27: The patient's mental status continues to decline. Patient is unable to take any oral intake. She did take small amount of liquid this morning for her medication and was aspirating. She had worsening AST 2718, ALT 1246, phosphatase 219, total bilirubin is 0.6, INR 2.0. WBC 15.5, hemoglobin 12.2. Renal function continues to worsen as well with a BUN of 85 and creatinine 3.67. Patient is currently on dobutamine and Lasix drips. She has had runs of V. tach 1-2 times per day for the past 2 days. She has been afebrile, heart rate 90, blood pressure 94/56, pulse ox 96% on 2 L. awake overnight monitor security monitor is atrial fibrillation with controlled rate. Patient's oral medications have been either discontinued or changed to IV. Abdominal ultrasound revealed findings due to hepatocellular disease. Prominence of the common bile duct may be due to patient's age and postcholecystectomy change. Exam limited. The patient was seen by GI yesterday and findings consistent with hypoperfusion causing ischemic hepatitis CAT scan of the brain ordered this morning which revealed mild age-related atrophy. Contacted patient's son Faraz and given up date regarding her condition and worsening condition and prognosis. He and his sister care will come up to see the patient. Confirm the patient is a full code . 10/28: Patient's mental status is improving today. Appears patient may be able to swallow and follow commands, speech therapy will be added. Consult for neurology will be added. Yesterday, Dr. Perales placed a right groin dialysis catheter. Patient underwent hemodialysis yesterday and scheduled for repeat dialysis today. Dobutamine and Lasix drips on hold this time. She has been afebrile, heart rate 77, blood pressure 114/53 and pulse ox 96% on 2 L nasal cannula. Repeat blood work today reveals improvement of her liver function tests with total bilirubin 0.6, AST 1214, ALT 949, alkaline phosphatase 194, INR 1.5. Renal function is improved with BUN of 67 creatinine 2.5. Potassium 2.9. WBC 15.5, hemoglobin 11.8. Blood sugars are running between 111 159. Patient is currently on scale insulin only due to no oral intake. 10/29: Patient's mental status is improving. She knows where she has that she is having some hallucinations. She is cooperative and able to follow commands. She has had improvement of her kidney function and liver function tests. Patient has been afebrile, heart rate 82, blood pressure 113/63, pulse ox 99% on 2 L nasal cannula. WBC 13.3, hemoglobin 13.3, platelets 173. INR 1.2, AST 559, ALT 703, alkaline phosphatase 187, total bilirubin 0.8. Potassium 3.1, chloride 108, BUN 45 creatinine 1.51. Blood sugars run between 118-190. Patient was seen yesterday by neurology with recommendations continue treating underlying cause of metabolic encephalopathy. Patient was evaluated by speech therapy with no overt signs and symptoms of aspiration and recommendations for pured diet with thin liquids and supervision, no straws. Patient underwent hemodialysis yesterday with removal of 2 L of fluid. She has had good urine output. She is continued on dobutamine and Lasix drips. 10/30 patient's mental status is improving answer questions appropriately. In between the conversation patient started mentioning about her son's demise today morning and was agitated about not having to have her phone with her. Patient was also noted to see things in her room which were not there. EKG to be done today to look for patient's QT interval. Seroquel can be started at 12.5 twice a day as needed. Judicious use of antipsychotics has to be done as patient has a low ejection fraction. Continue Lasix drip per nephrology no plan for hemodialysis today. Patient's prognosis is poor. elliquis resumed today. Dobutamine drip on hold. 10/31 patient's mental status slightly improved since yesterday. She does have intermittent episodes of agitation or confusion. Vitals are stable with temp of 98.1 pulse 106 respiratory rate 16 blood pressure 106/63 oxygen saturation 95% on room air. BNP suggest some potassium of 2.8 BUN 46 creatinine 1.34 calcium 8.2 Lasix drip discontinued and patient currently on torsemide 40 mg daily. Midodrine added for hypertension and 5 mg 3 times a day . Plan to discharge if patient continues to improve on Saturday. Review of Systems Constitutional: No fever, no chills, reports weakness, fatigue, reports daytime sleepiness. EENT: Reports headache. No nasal drainage or congestion. No epistaxis. No sore throat. Lungs: No shortness of breath, cough, no sputum production. No wheezing. Cardiovascular: No chest pain, mild lower extremity edema. No palpitations. No paroxysmal nocturnal dyspnea. No orthopnea. No lightheadedness or dizziness. No syncopal episodes. Abdominal: No abdominal pain. No nausea, vomiting. No diarrhea. No bloody or tarry stools. Genitourinary: No dysuria, increased frequency, urgency. Urinary retention- su. Musculoskeletal: Reports myalgias. Reports muscle weakness, Reports gait dysfunction, no frequent falls. No back pain. No neck pain. Integumentary: No wounds, no lesions. No rash or pruritus. No unusual bruising. Neurologic: No aphasia. No facial droop. Reports change in mentation-improving. Positive for psychosis No head injury. Psychiatric: No depression. No anxiety. No mood swings. Reports lugo ucinations. Endocrine: Reports abnormal blood sugars. Objective - Vital Signs Vital signs: Vital Signs Temp 98.1 F 11/01/19 04:26 Pulse 106 H 11/01/19 04:26 Resp 16 11/01/19 04:26 BP 106/63 11/01/19 04:26 Pulse Ox 95 11/01/19 04:26 Intake & Output 10/31/19 11/01/19 11/01/19 18:59 06:59 18:59 Intake Total 720 Output Total 1500 500 Balance -780 -500 Weight 71.5 kg Intake: Oral 720 Output: Urine 1500 500 Other: Voiding Method Indwelling Catheter Indwelling Catheter # Bowel Movements 4 1 - Exam Physical Examination Gen: This is a 74-year-old female. Patient is resting in bed in no acute distress. Oriented 2, agitated intermittently HEENT: Head is atraumatic, normocephalic. Pupils equal, round. Sclerae is anicteric. NECK: Supple. No JVD. No lymphadenopathy. No thyromegaly. LUNGS: Clear to auscultation. No wheezes or rhonchi. No intercostal retractions. HEART: Irregularly irregular rate and rhythm. Systolic murmur. ABDOMEN: Soft. Bowel sounds are present. No masses. No tenderness. No right upper quadrant or epigastric tenderness noted. EXTREMITIES: 1+ pedal edema. No calf tenderness. NEUROLOGICAL: Patient is awake, alert and oriented to person and place. Significant weakness noted. - Labs CBC & Chem 7: 10/31/19 07:03 11/01/19 06:02 Labs: Abnormal Lab Results - Last 24 Hours (Table) 10/31/19 10/31/19 10/31/19 Range/Units 07:03 07:03 07:03 WBC 17.0 H (3.8-10.6) k/uL INR 1.2 H (<1.2) Potassium 3.2 L (3.5-5.1) mmol/L BUN 45 H (7-17) mg/dL Creatinine 1.32 H (0.52-1.04) mg/dL Glucose 122 H (74-99) mg/dL POC Glucose (mg/dL) (75-99) mg/dL Calcium (8.4-10.2) mg/dL AST 242 H (14-36) U/L ALT 525 H (4-34) U/L Alkaline Phosphatase 189 H (38-126) U/L Albumin 3.3 L (3.5-5.0) g/dL 10/31/19 10/31/19 10/31/19 Range/Units 11:50 17:00 20:17 WBC (3.8-10.6) k/uL INR (<1.2) Potassium (3.5-5.1) mmol/L BUN (7-17) mg/dL Creatinine (0.52-1.04) mg/dL Glucose (74-99) mg/dL POC Glucose (mg/dL) 173 H 156 H 268 H (75-99) mg/dL Calcium (8.4-10.2) mg/dL AST (14-36) U/L ALT (4-34) U/L Alkaline Phosphatase (38-126) U/L Albumin (3.5-5.0) g/dL 11/01/19 Range/Units 06:02 WBC (3.8-10.6) k/uL INR (<1.2) Potassium 2.8 L (3.5-5.1) mmol/L BUN 46 H (7-17) mg/dL Creatinine 1.34 H (0.52-1.04) mg/dL Glucose (74-99) mg/dL POC Glucose (mg/dL) (75-99) mg/dL Calcium 8.2 L (8.4-10.2) mg/dL AST (14-36) U/L ALT (4-34) U/L Alkaline Phosphatase (38-126) U/L Albumin (3.5-5.0) g/dL Microbiology - Last 24 Hours (Table) 10/25/19 12:36 Blood Culture - Final Blood No Growth after 144 hours Assessment and Plan Plan: 1. Acute on chronic systolic heart failure with pleural effusions and ascites. Previous echocardiogram with EF of 40-45 % from June 2018. Repeat echocardiogram reveals EF of 20-25%. Nephrology - continue Lasix drips. Continue Lopressor changed back to oral 12.5 mg twice daily. Monitor I&O and daily weights. Consult with Dr. Koroma appreciated regarding pleural effusions- no plan for thoracentesis. 2. Possible non-ST elevated myocardial infarction. Cardiology consult. Continue Lopressor, discontinue Lipitor 20 mg at bedtime. 3. Acute kidney injury with chronic kidney disease stage II Secondary to cardiorenal syndrome Nephrology consult appreciated. Patient is status post renal dialysis catheter, hemodialysis 10/28 and 10/29. No plan for further hemodialysis . Lasix to discontinue on torsemide 40 mg by mouth daily 4. Metabolic acidosis secondary to acute kidney injury, normal saline, lactic acidosis. Nephrology consult. 5. Possible pneumonia. Ruled out by pulmonary medicine. Discontinue ceftr iaxone and azithromycin. 6. Difficulty breathing with elevated d-dimer of 2.38. VQ scan ruled out PE. Patient states she has not missed any doses of eliquis. 7. Chronic atrial fibrillation. Resume eliquis 5 mg twice daily and continue Lopressor. 8. Transaminitis possibly related to heart failure with underlying liver disease, hepatorenal syndrome. Recheck liver function tests in the morning. Hold Lopid and Lipitor. A azithromycin and ceftriaxone discontinued. GI consult appreciated. Eliquis will be resumed as INR is at 1.2. 9. Multiorgan failure secondary to heart failure with ejection fraction of 20- 25%, acute kidney injury, acute liver failure, elevated troponins. 10. Nausea and vomiting possibly related to heart failure, liver congestion, history of Matthews. Continue Zofran as needed for nausea, Protonix 40 mg IV twice daily. Consult with Dr. Valentin. Diet advanced to pured with thin liquids, aspiration precautions. 11. Metabolic encephalopathy (POA) secondary to hepatorenal syndrome. CAT scan of the brain negative. Consult with neurology appreciated. 12. Obstructive sleep apnea on CPAP. 13. Hypothyroidism. Continue Tapazole 5 mg daily. 14. DVT prophylaxis. Elevated INR. Hold eliquis. 15. GI prophylaxis. Protonix. 16. Urinary retention. Su catheter placed. 17. COVID-19 infection not present. 18. Dyslipidemia. Hold Lopid 600 mg twice daily. 19. Borderline diabetes. Patient will be started on NovoLog scale before meals and at bedtime, hemoglobin A1c 6.0. 20. Agitation likely secondary to delirium. Continue to reorient the patient. Avoid antipsychotic as much as possible. We'll initiate on Seroquel low-dose 12.5 twice a day as needed. EKG ordered to assess for QT prolongation CODE STATUS full code. Prognosis guarded. Discharge plan: Anticipate need for subacute rehab. Patient most likely will be ready for discharge on Saturday. Social work will be updated.
[2019-11-01] MEDS: APIXABAN 2.5 MG TABLET PO SCH ×2 (08:33→20:35)
[2019-11-01] MEDS: METHIMAZOLE 5 MG TAB PO SCH (08:34)
[2019-11-01] MEDS: METOPROLOL TARTRATE 12.5 MG TAB PO SCH ×2 (08:35→20:35)
[2019-11-01] MEDS: PANTOPRAZOLE 40 MG TABLET PO SCH ×2 (08:35→20:35)
[2019-11-01] MEDS: TORSEMIDE 20 MG TAB PO SCH (08:36)
[2019-11-01] MEDS: SERTRALINE 50 MG TAB PO SCH (08:36)
[2019-11-01] MEDS ORDERED: LACTULOSE 20 GM/30 ML CUP PO SCH (09:00)
[2019-11-01] MEDS ORDERED: TORSEMIDE 20 MG TAB PO SCH (09:00)
--- NOTE | 2019-11-01 09:33 | P.PN ---
Subjective Progress Note Date: 11/01/19 CHIEF COMPLAINT: Abdominal pain HISTORY OF PRESENT ILLNESS: The patient is a 74-year-old female admitted with complicated medical history including severe congestive heart failure, kidney failure, cardiomegaly, abdominal pain, obstructive sleep apnea, ascites, including chronic atrial fibrillation. She had abdominal pain during hospitalization secondary to liver shock. No further abdominal pain. She is tolerating a dysphagia diet. She is ambulating with assistance. ROS: No reports of nausea and vomiting. No fevers or chills. PHYSICAL EXAM: VITAL SIGNS: Reviewed CONSTITUTIONAL: Well developed and in no acute distress. EYES: Conjuctivae without sclera icterus. Extraocular movements grossly intact. HEAD, EARS, NOSE, THROAT: Moist buccal mucosa. Head is atraumatic, normocephalic. Hears conversational speech. No nasal drainage. NECK: Supple. No thyroidomegaly. RESPIRATORY: Non-labored respirations and equal bilateral excursions. CARDIOVASCULAR: Palpable 2+ radial pulses. ABDOMEN: No peritonitis. Soft. Nontender. MUSCULOSKELETAL: No gross deformity of the lower extremities noted. No clubbing. No cyanosis. SKIN: Good skin turgor. Well perfused. NEUROLOGIC: Cranial nerves II through XII grossly intact. No focal or lateralizing signs. PSYCH: Alert to self. CLINICAL LABS: Reviewed. Potassium low at 2.8. No new CBC today. ASSESSMENT: 1. Liver shock syndrome with abdominal pain 2. Congestive heart failure PLAN: 1. Continue dysphagia diet per dietitian. 2. History of leukocytosis, repeat CBC ordered. 3. Potassium infusion for potassium 2.8 ordered. Objective - Vital Signs Vital signs: Vital Signs Temp 98 F 11/01/19 08:00 Pulse 76 11/01/19 08:00 Resp 16 11/01/19 08:00 BP 103/64 11/01/19 08:00 Pulse Ox 97 11/01/19 08:00 Intake & Output 10/31/19 11/01/19 11/01/19 18:59 06:59 18:59 Intake Total 720 Output Total 1500 500 Balance -780 -500 Weight 71.5 kg Intake: Oral 720 Output: Urine 1500 500 Other: Voiding Method Indwelling Catheter Indwelling Catheter Indwelling Catheter # Bowel Movements 4 1 - Labs CBC & Chem 7: 10/31/19 07:03 11/01/19 06:02 Labs: Abnormal Lab Results - Last 24 Hours (Table) 10/31/19 10/31/19 10/31/19 Range/Units 11:50 17:00 20:17 Potassium (3.5-5.1) mmol/L BUN (7-17) mg/dL Creatinine (0.52-1.04) mg/dL POC Glucose (mg/dL) 173 H 156 H 268 H (75-99) mg/dL Calcium (8.4-10.2) mg/dL 11/01/19 Range/Units 06:02 Potassium 2.8 L (3.5-5.1) mmol/L BUN 46 H (7-17) mg/dL Creatinine 1.34 H (0.52-1.04) mg/dL POC Glucose (mg/dL) (75-99) mg/dL Calcium 8.2 L (8.4-10.2) mg/dL Microbiology - Last 24 Hours (Table) 10/25/19 12:36 Blood Culture - Final Blood No Growth after 144 hours Assessment and Plan (1) Atrial fibrillation Current Visit: Yes Status: Acute Code(s): I48.91 - UNSPECIFIED ATRIAL FIBRILLATION SNOMED Code(s): 22170811 (2) Shock liver Current Visit: Yes Status: Acute Code(s): K72.00 - ACUTE AND SUBACUTE HEPATIC FAILURE WITHOUT COMA SNOMED Code(s): 702635582 (3) Acute pulmonary edema Current Visit: Yes Status: Acute Code(s): J81.0 - ACUTE PULMONARY EDEMA SNOMED Code(s): 03201319 (4) Congestive heart failure Current Visit: Yes Status: Acute Code(s): I50.9 - HEART FAILURE, UNSPECIFIED SNOMED Code(s): 48006484
[2019-11-01] MEDS ORDERED: Potassium Replacement Protocol 1 EACH MISC MISCELLANE PRN (09:34)
[2019-11-01 09:49] LABS: Basophils % (A) 0 %; Eosinophils # (A) 0.5 k/uL (0-0.7); Eosinophils % (A) 3 %; HCT 40.4 % (34.0-46.0); HGB 12.3 gm/dL (11.4-16.0); Hypochromasia Moderate; Lymphocytes # (A) 0.9 k/uL (1.0-4.8); Lymphocytes % (A) 7 %; MCH 27.8 pg (25.0-35.0); MCHC 30.4 g/dL (31.0-37.0); MCV 91.5 fL (80.0-100.0); Mean Platelet Volume 11.7; Monocytes # (A) 0.6 k/uL (0-1.0); Monocytes % (A) 5 %; Neutrophils # (A) 11.5 k/uL (1.3-7.7); Neutrophils % (A) 83 %; Platelet Count 155 k/uL (150-450); RBC 4.42 m/uL (3.80-5.40); RDW 13.2 % (11.5-15.5); WBC 13.9 k/uL (3.8-10.6)
[2019-11-01] MEDS: POTASSIUM CHLORIDE 20 MEQ in WATER FOR INJECTION 1 100ML.BAG IVPB SCH ×3 (10:40→17:14)
[2019-11-01 11:58] LABS: Glucose,Whole Blood 167 mg/dL (75-99)
--- NOTE | 2019-11-01 12:13 | P.PN ---
Subjective Progress Note Date: 11/01/19 This is a pleasant 74-year-old female with a history of hypertension, obstructive sleep apnea, dyslipidemia, breast cancer, CHF and atrial fibrillation who presented with complaints of nausea and vomiting. Patient remains quite drowsy and is a poor historian. HPI and history were obtained mostly from the chart. Chest x-ray on admission did show pulmonary vascular congestion with a large hiatal hernia. EKG showed atrial fibrillation with left bundle branch block. CT of the abdomen and pelvis showed moderate bilateral pleural effusions with bibasilar pulmonary infiltrates and atelectasis, abdomina l ascites. NT proBNP is elevated at 19,000. She's been on IV Lasix 40 mg by mouth every 8 hours. Labs this morning show significant increase in her BUN and creatinine which yesterday were 27 and 1.29 and this morning were 48 and 2.2. At the time of my examination, patient is resting comfortably in bed. Again she is quite drowsy. She does deny complaints of nausea or vomiting. Has no complaints of shortness of breath. Her only complaint at this time is of feeling tired. 10/27/2019 The patient was seen and examined resting in bed. She is lethargic this morning. Opens eyes to verbal stimuli but does not respond verbally. Echocardiogram showed severely impaired LV systolic function with an ejection fraction of 20-25% with mildly enlarged RV, mild AR with possible bicuspid aortic valve, moderate TR and mild pulmonary hypertension. Labs show further elevation of BUN and creatinine at 67 and 3.28, INR of 2.4 and elevated LFTs with an AST of 3251, ALT 1119 and alkaline phosphatase of 233, ammonia level 44 10/28/2019 Patient was seen and examined this morning. Patient's mental status continues to decline. She is quite lethargic and difficult to arouse. Labs this morning showed a white blood cell count 15,500, INR 2.0, BUN increasing to 85 and creatinine increasing at 3.67. LFTs relatively stable with an AST of 2718, ALT 1246 and alkaline phosphatase of 219. She was seen by GI yesterday who feels elevation of liver enzymes are related to ischemic hepatitis secondary to h ypoperfusion. Patient is being maintained on dobutamine at 2.5 g/kg/min and Lasix drip at 10 mg an hour. Patient is being followed by nephrology who is anticipating the need for dialysis. She remains in atrial fibrillation on the monitor with a controlled ventricular response. Occasional brief episodes of nonsustained ventricular tachycardia. She remains on metoprolol tartrate 12.5 mg by mouth twice a day. 10/29/2019 Patient was seen and examined this morning. Mental status has improved. The patient is awake alert and answering some questions. She underwent placement of a dialysis catheter last night by Dr. Perales. She underwent 2 hour hemodialysis last night and planning for 3 hour ultrafiltration today. At the time of my examination she is currently undergoing hemodialysis. Blood pressure has improved maintaining above 100 mmHg systolic. She is afebrile and maintaining an oxygen saturation of around 96-98% on 2 L nasal cannula. Labs this morning show white blood cell count 13,500, INR 1.5, potassium 2.9, BUN 67, creatinine 2.5, AST 1214, ALT 949, an alkaline phosphatase of 194. 10/30/2019 She was seen and examined this morning. Mental status continues to improve. Patient is awake, alert and answering questions more appropriately compared to yesterday. Vital signs are stable. She continues on Lasix and dobutamine drips. She is afebrile. Labs continued to show improvement with a BUN 45, creatinine 1.51, INR 1.2, AST 559, ALT 703 and alkaline phosphatase of 187. David remains on hold. 10/31/2019 Patient was seen and examined this morning resting comfortably in bed. Mental status continues to improve. Patient is awake, alert and oriented 3 with some mild confusion and forgetfulness noted. Labs continued to show improvement with a BUN of 45 and creatinine 1.32, AST 242, ALT 525 and alkaline phosphatase of 189. Potassium is low at 3.2 and supplementation has been ordered by nephrology. She has been transitioned to oral diuretics by nephrology. Urine putput has increased. 11/01/2019 Patient was seen and examined this morning resting currently in bed, mild dyspnea noted following some exertion with getting cleanup after using the bedpan. Mentation is stable. She is awake, alert and oriented 3 with some mild confusion and forgetfulness noted. BUN and creatinine are stable. Potassium is low and is being replaced by primary. Urine output is stable. Objective - Vital Signs Vital signs: Vital Signs Temp 98 F 11/01/19 08:00 Pulse 76 11/01/19 08:00 Resp 16 11/01/19 08:00 BP 103/64 11/01/19 08:00 Pulse Ox 97 11/01/19 08:00 Intake & Output 10/31/19 11/01/19 11/01/19 18:59 06:59 18:59 Intake Total 720 Output Total 1500 500 2 Balance -780 -500 -2 Weight 71.5 kg Intake: Oral 720 Output: Urine 1500 500 Stool 2 Other: Voiding Method Indwelling Catheter Indwelling Catheter Indwelling Catheter # Bowel Movements 4 1 - Exam PHYSICAL EXAMINATION: HEENT: Head is atraumatic, normocephalic. Pupils equal, round. Neck is supple. There is no elevated jugular venous pressure. HEART EXAMINATION: Heart sounds irregularly irregular, S1 and S2 with a systolic murmur CHEST EXAMINATION: Lungs reveal diminished air entry bilateral bases. No chest wall tenderness is noted on palpation or with deep breathing. ABDOMEN: Soft, nontender. Bowel sounds are heard. No organomegaly noted. EXTREMITIES: 2+ peripheral pulses with no evidence of peripheral edema and no calf tenderness noted. Right femoral dialysis catheter noted. NEUROLOGIC patient is more awake, alert, oriented x3 with some mild confusion and forgetfulness noted. - Labs CBC & Chem 7: 11/01/19 06:02 11/01/19 06:02 Labs: Abnormal Lab Results - Last 24 Hours (Table) 10/31/19 10/31/19 11/01/19 Range/Units 17:00 20:17 06:02 WBC (3.8-10.6) k/uL MCHC (31.0-37.0) g/dL Neutrophils # (1.3-7.7) k/uL Lymphocytes # (1.0-4.8) k/uL Potassium 2.8 L (3.5-5.1) mmol/L BUN 46 H (7-17) mg/dL Creatinine 1.34 H (0.52-1.04) mg/dL POC Glucose (mg/dL) 156 H 268 H (75-99) mg/dL Calcium 8.2 L (8.4-10.2) mg/dL 11/01/19 11/01/19 Range/Units 06:02 11:56 WBC 13.9 H (3.8-10.6) k/uL MCHC 30.4 L (31.0-37.0) g/dL Neutrophils # 11.5 H (1.3-7.7) k/uL Lymphocytes # 0.9 L (1.0-4.8) k/uL Potassium (3.5-5.1) mmol/L BUN (7-17) mg/dL Creatinine (0.52-1.04) mg/dL POC Glucose (mg/dL) 167 H (75-99) mg/dL Calcium (8.4-10.2) mg/dL Microbiology - Last 24 Hours (Table) 10/25/19 12:36 Blood Culture - Final Blood No Growth after 144 hours Assessment and Plan Assessment: #1 multisystem organ failure with evidence of CHF, EF 20-25%, SHERIDAN on CKD, and acute liver failure, #2 acute on chronic systolic congestive heart failure with severely impaired LV systolic function with EF 20-25% #3 minimally abnormal troponins, not consistent with acute coronary syndrome however underlying ischemia cannot be ruled out at this time #4 persistent atrial fibrillation, INR 2.0, anticoagulation is on hold at this time #5 hypertension #6 hyperlipidemia #7 obstructive sleep apnea #8 abnormal d-dimer with VQ scan showing low and of intermediate probability for PE #9 acute kidney injury on chronic kidney disease, may be dealing with cardiorena l syndrome, being followed by nephrology, improving #10 acute liver failure, improving #11 Hypokalemia Plan: From cardiology's perspective, medications were reviewed and we will continue the same. Agree with replacement of potassium. Will work to optimize cardiac medications dependent on blood pressure. Diuretics per nephrology. Continue to monitor renal function and electrolytes. Continue to follow closely with nephrology. We will provide further recommendations accordingly. [employer] note has been reviewed, I agree with a documented findings and plan of care. Patient was seen and examined.
--- NOTE | 2019-11-01 13:53 | P.PN ---
Subjective Progress Note Date: 11/01/19 Follow-up for acute kidney injury. Urine output of 2 L within net negative of 1250 ML's in the last 24 hours. Objective - Vital Signs Vital signs: Vital Signs Temp 97.9 F 11/01/19 12:00 Pulse 79 11/01/19 12:00 Resp 16 11/01/19 12:00 BP 116/73 11/01/19 12:00 Pulse Ox 97 11/01/19 12:00 Intake & Output 10/31/19 11/01/19 11/01/19 18:59 06:59 18:59 Intake Total 720 Output Total 1500 500 4 Balance -780 -500 -4 Weight 71.5 kg Intake: Oral 720 Output: Urine 1500 500 Stool 4 Other: Voiding Method Indwelling Catheter Indwelling Catheter Indwelling Catheter # Bowel Movements 4 1 - Exam No acute distress S1-S2 heard Lungs clear decreased breath sounds Abdomen soft Trace edema Silveira catheter - Labs CBC & Chem 7: 11/01/19 06:02 11/01/19 06:02 Labs: Abnormal Lab Results - Last 24 Hours (Table) 10/31/19 10/31/19 11/01/19 Range/Units 17:00 20:17 06:02 WBC (3.8-10.6) k/uL MCHC (31.0-37.0) g/dL Neutrophils # (1.3-7.7) k/uL Lymphocytes # (1.0-4.8) k/uL Potassium 2.8 L (3.5-5.1) mmol/L BUN 46 H (7-17) mg/dL Creatinine 1.34 H (0.52-1.04) mg/dL POC Glucose (mg/dL) 156 H 268 H (75-99) mg/dL Calcium 8.2 L (8.4-10.2) mg/dL 11/01/19 11/01/19 Range/Units 06:02 11:56 WBC 13.9 H (3.8-10.6) k/uL MCHC 30.4 L (31.0-37.0) g/dL Neutrophils # 11.5 H (1.3-7.7) k/uL Lymphocytes # 0.9 L (1.0-4.8) k/uL Potassium (3.5-5.1) mmol/L BUN (7-17) mg/dL Creatinine (0.52-1.04) mg/dL POC Glucose (mg/dL) 167 H (75-99) mg/dL Calcium (8.4-10.2) mg/dL Microbiology - Last 24 Hours (Table) 10/25/19 12:36 Blood Culture - Final Blood No Growth after 144 hours Assessment and Plan Assessment: #1 Nonoliguric acute kidney injury secondary to type I cardiorenal syndrome. Baseline creatinine 0.7 MG per DL in 2019. #2 acute on chronic systolic CHF decompensated with the EF of 20-25%. #3 hypotensive episodes #4 volume overload improving #5 anemia secondary to diuretic use #6 hypokalemia secondary to diuretic use Plan: #1 Continue with torsemide 40 mg by mouth daily #2 renal function stable and improving. Replace electrolytes #3 Continue midodrine for hemodynamic support #4 no acute indication for renal replacement therapy at this time.
--- NOTE | 2019-11-01 15:38 | PN ---
PROGRESS NOTE DATE OF SERVICE: 11/01/2019 The patient is a 74-year-old pleasant white female admitted to hospital with altered mental status, exacerbation of congestive heart failure and was noted to have elevated LFTs secondary to ischemic hepatitis. She is doing much better. Overall her condition has significantly improved. She is more awake, alert, responding appropriately. She had some diarrhea yesterday, lactulose on hold and the diarrhea has resolved. Overall she is feeling much better. Tolerating diet well. PHYSICAL EXAMINATION: Appears comfortable, no apparent distress. Vital signs are stable. Blood pressure 116/72, pulse rate 79, temperature 96. HEENT examination unremarkable. Conjunctivae pink. Sclerae anicteric. Oral cavity, no lesions. NECK: No JVD or lymph node enlargement. CHEST: Clear to auscultation. HEART: Regular rate and rhythm. ABDOMEN: Soft. Bowel sounds are positive. No organomegaly. EXTREMITIES: No pedal edema. NEUROLOGIC: Alert and oriented x3. No focal deficits. LABS: From today WBC 13.9, hemoglobin 12.3, platelets normal. Basic metabolic panel is within normal limits. BUN 46, creatinine 1.34. IMPRESSION: 1. Acute hepatocellular injury secondary to ischemic hepatitis from low perfusion state. She is hemodynamically more stable. LFTs have significantly improved. Overall she is doing well. 2. Acute kidney injury secondary to acute tubular necrosis. The BUN and creatinine also are gradually improving. 3. Exacerbation of congestive heart failure. RECOMMENDATION: 1. Monitor LFTs closely. 2. Continue with symptomatic supportive care. 3. Since the LFTs have significantly improved we will sign off at this time. Please call us if needed. Thank you for this consultation. MMODL / IJN: [id number] /
[2019-11-01 16:12] LABS: Glucose,Whole Blood 128 mg/dL (75-99)
[2019-11-01 20:12] LABS: Glucose,Whole Blood 161 mg/dL (75-99)
[2019-11-01] MEDS: DOBUTamine DRIP 500 MG in DEXTROSE/WATER 1 250ML.BAG IV SCH (21:12)
[2019-11-01] MEDS: METOPROLOL TARTRATE 5 MG/5 ML VIAL IVP SCH (21:12)
[2019-11-01 22:08] VITALS: RESP 18; TEMP 97.9
[2019-11-02] MEDS: MIDODRINE 5 MG TAB PO SCH ×2 (05:59→16:16)
[2019-11-02 06:05] LABS: Glucose,Whole Blood 109 mg/dL (75-99)
[2019-11-02] MEDS: INSULIN ASPART (NovoLOG) 100 UNIT/ML VIAL SQ SCH ×2 (06:13→13:32)
[2019-11-02 06:35] LABS: Basophils % (A) 0 %; Eosinophils # (A) 0.4 k/uL (0-0.7); Eosinophils % (A) 3 %; HCT 40.8 % (34.0-46.0); HGB 12.9 gm/dL (11.4-16.0); Hypochromasia Moderate; Lymphocytes # (A) 1.4 k/uL (1.0-4.8); Lymphocytes % (A) 10 %; MCH 28.9 pg (25.0-35.0); MCHC 31.6 g/dL (31.0-37.0); MCV 91.4 fL (80.0-100.0); Mean Platelet Volume 10.7; Monocytes # (A) 0.6 k/uL (0-1.0); Monocytes % (A) 4 %; Neutrophils # (A) 11.8 k/uL (1.3-7.7); Neutrophils % (A) 81 %; Platelet Count 190 k/uL (150-450); RBC 4.46 m/uL (3.80-5.40); RDW 13.3 % (11.5-15.5); WBC 14.5 k/uL (3.8-10.6)
[2019-11-02 06:45] LABS: Calcium 8.5 mg/dL (8.4-10.2); Potassium 3.8 mmol/L (3.5-5.1)
[2019-11-02] MEDS: METOPROLOL TARTRATE 12.5 MG TAB PO SCH (08:00)
[2019-11-02] MEDS: PANTOPRAZOLE 40 MG TABLET PO SCH (08:00)
[2019-11-02] MEDS: SERTRALINE 50 MG TAB PO SCH (08:01)
[2019-11-02] MEDS: TORSEMIDE 20 MG TAB PO SCH (08:01)
[2019-11-02] MEDS: APIXABAN 2.5 MG TABLET PO SCH (08:01)
--- NOTE | 2019-11-02 08:57 | P.DS ---
Providers Date of admission: 10/24/19 22:12 Expected date of discharge: 11/02/19 Attending physician: Arvin Nelson Consults: 10/24/19 22:11 Consult Physician Routine Consulting Provider: Eve Watt Consult Reason/Comments: chf Do you want consulting provider notified?: Yes 10/25/19 10:44 Consult Physician Routine Consulting Provider: Dwayne Hess Consult Reason/Comments: SHERIDAN, acidosis Do you want consulting provider notified?: Yes 10/26/19 07:55 Consult Physician Routine Consulting Provider: Dereck Valentin Consult Reason/Comments: abd pain, poss ischemic bowel Do you want consulting provider notified?: Yes Consult Physician Routine Consulting Provider: Maximilian Koroma Consult Reason/Comments: pleural effusion, dyspnea Do you want consulting provider notified?: Yes 10/27/19 08:36 Consult Physician Routine Consulting Provider: Yvonne Richards Consult Reason/Comments: Ac liver fx Do you want consulting provider notified?: Yes 10/28/19 14:52 Consult Physician Routine Consulting Provider: Denis Perales Consult Reason/Comments: temporary dialysis cath placement Do you want consulting provider notified?: Yes 10/29/19 08:27 Consult Physician Routine Consulting Provider: Michael Yu Consult Reason/Comments: metabolic encephalopathy Do you want consulting provider notified?: Yes Primary care physician: Arvin Nelson [facility] Course: This is a 74-year-old female patient of Dr. Nelson with past medical history of breast cancer post right sided mastectomy, hyperglycemia, hyperthyroidism, obstructive sleep apnea, chronic atrial fibrillation on eliquis, hypertension, hyperlipidemia. Patient complains of feeling tired, nauseated and short of breath and cough. She states she has had nausea and vomiting along with since weekend. She denies having any fever or chills. Lab work revealed WBC 13.6, hemoglobin 14.3, platelet count 372. Sodium 141, potassium 3.7, chloride 109, CO2 17, BUN 24 and creatinine 1.21. B lood sugar was 149. AST of 55 and alkaline phosphatase 188, ALT 29. Lipase 386 INR 1.2. Initial lactic acid 3.3. Troponin 0.035. ProBNP 9000. EKG was atrial fibrillation with a rate of 90. Chest x-ray reveals congestive heart failure with pleural fluid that appears new. Large hiatal hernia unchanged. CAT scan of the abdomen and pelvis revealed moderate cardiomegaly. Bilateral moderate pleural effusions and basilar pulmonary infiltrates and atelectasis. Abdominal ascites. This could be related to chronic heart failure. Ascites and pleural fluid are new compared to old exam. 10/25: Patient continues to have shortness of breath and speech is slow. She remains slightly confused but oriented 3. Patient is not back to her baseline. Her abdomen is better. She denies abdominal pain. She is on a full liquid diet. Consult with Dr. Valnetin added her concern for ischemic bowel. Consult also added for Dr. Koroma for pleural effusion. pvc monitor is atrial fibrillation. Silveira catheter was placed for urinary retention. VQ scan is low end of intermediate probability for pulmonary embolism. Patient has been seen in follow-up by cardiology for possible non-ST elevated myocardial infarction with recommendations to continue current medication and continue diuretics. Echocardiogram pending. Patient is followed by nephrology and seen yesterday started on a bicarb drip and discontinued Lasix. Today, oral sodium bicarb was added and Lasix 80 mg IV once. Repeat chest x-ray was ordered. Patient has been afebrile, heart rate 88, blood pressure 105/69, pulse ox 94% on 2 L nasal cannula. Repeat blood work reveals sodium 142, potassium 4.7, chloride 107, CO2 17, BUN 48 creatinine 2.20. Blood sugars are running between 96 and 145. Urinalysis cloudy, nitrate and leukoesterase negative. Acetone was negative, LDH 762. Serum osmolality 305. 10/26: Patient have increasing confusion today with significantly elevated liver function tests with AST of 3251, ALT 1119, alkaline phosphatase 233. We have added and lab work for ammonia level which came back 44 and INR of 2.4. Eliquis discontinued. Consult with GI has been added. Concern for drug induced hepatitis and azithromycin and ceftriaxone will be discontinued. Patient is currently on ceftriaxone only. Acute hepatitis panel and abdominal ultrasound ordered. Patient has been started on dobutamine drip and Lasix drip by nephrology. Echocardiogram reveals EF of 20-25%, mild aortic regurgitation, mild mitral regurgitation, moderate tricuspid regurgitation, mild pulmonary hypertension. Chest x-ray from yesterday reveals stable bilateral infiltrate and pleural effusion. Correlate for venous congestion and CHF may be slightly improved. Underlying pneumonia not excluded. Discussed case with Dr. Valentin and he feels that bowel symptoms and elevated liver function tests are related to ischemic bowel secondary to hypoperfusion from heart failure. 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 Patient is followed by multiple consultants. 10/27: The patient's mental status continues to decline. Patient is unable to take any oral intake. She did take small amount of liquid this morning for her medication and was aspirating. She had worsening AST 2718, ALT 1246, phosphatase 219, total bilirubin is 0.6, INR 2.0. WBC 15.5, hemoglobin 12.2. Renal function continues to worsen as well with a BUN of 85 and creatinine 3.67. Patient is currently on dobutamine and Lasix drips. She has had runs of V. tach 1-2 times per day for the past 2 days. She has been afebrile, heart rate 90, blood pressure 94/56, pulse ox 96% on 2 L. pvc monitor air sampling and monitoring is atrial fibrillation with controlled rate. Patient's oral medications have been either discontinued or changed to IV. Abdominal ultrasound revealed findings due to hepatocellular disease. Prominence of the common bile duct may be due to patient's age and postcholecystectomy change. Exam limited. The patient was seen by GI yesterday and findings consistent with hypoperfusion causing ischemic hepatitis CAT scan of the brain ordered this morning which revealed mild age-related atrophy. Contacted patient's son Faraz and given up date regarding her condition and worsening condition and prognosis. He and his sister care will come up to see the patient. Confirm the patient is a full code . 10/28: Patient's mental status is improving today. Appears patient may be able to swallow and follow commands, speech therapy will be added. Consult for neurology will be added. Yesterday, Dr. Perales placed a right groin dialysis catheter. Patient underwent hemodialysis yesterday and scheduled for repeat dialysis today. Dobutamine and Lasix drips on hold this time. She has been afebrile, heart rate 77, blood pressure 114/53 and pulse ox 96% on 2 L nasal cannula. Repeat blood work today reveals improvement of her liver function tests with total bilirubin 0.6, AST 1214, ALT 949, alkaline phosphatase 194, INR 1.5. Renal function is improved with BUN of 67 creatinine 2.5. Potassium 2.9. WBC 15.5, hemoglobin 11.8. Blood sugars are running between 111 159. Patient is currently on scale insulin only due to no oral intake. 10/29: Patient's mental status is improving. She knows where she has that she is having some hallucinations. She is cooperative and able to follow commands. She has had improvement of her kidney function and liver function tests. Patient has been afebrile, heart rate 82, blood pressure 113/63, pulse ox 99% on 2 L nasal cannula. WBC 13.3, hemoglobin 13.3, platelets 173. INR 1.2, AST 559, ALT 703, alkaline phosphatase 187, total bilirubin 0.8. Potassium 3.1, chloride 108, BUN 45 creatinine 1.51. Blood sugars run between 118-190. Patient was seen yesterday by neurology with recommendations continue treating underlying cause of metabolic encephalopathy. Patient was evaluated by speech therapy with no overt signs and symptoms of aspiration and recommendations for pured diet with thin liquids and supervision, no straws. Patient underwent hemodialysis yesterday with removal of 2 L of fluid. She has had good urine output. She is continued on dobutamine and Lasix drips. 10/30 patient's mental status is improving answer questions appropriately. In between the conversation patient started mentioning about her son's demise today morning and was agitated about not having to have her phone with her. Patient was also noted to see things in her room which were not there. EKG to be done today to look for patient's QT interval. Seroquel can be started at 12.5 twice a day as needed. Judicious use of antipsychotics has to be done as patient has a low ejection fraction. Continue Lasix drip per nephrology no plan for hemodialysis today. Patient's prognosis is poor. elliquis resumed today. Dobutamine drip on hold. 10/31 patient's mental status slightly improved since yesterday. She does have intermittent episodes of agitation or confusion. Vitals are stable with temp of 98.1 pulse 106 respiratory rate 16 blood pressure 106/63 oxygen saturation 95% on room air. BNP suggest some potassium of 2.8 BUN 46 creatinine 1.34 calcium 8.2 Lasix drip discontinued and patient currently on torsemide 40 mg daily. Midodrine added for hypertension and 5 mg 3 times a day . Plan to discharge if patient continues to improve on Saturday. 11/01: Patient's mental status is significantly improved from admission. She is stating she is hungry today. No signs of aspiration. Patient did not receive hemodialysis over the weekend. Repeat lab work reveals BUN 47 creatinine 1.42. Liver function tests also improved over the weekend. WBC is 14. She has been afebrile, heart rate 85, blood pressure 102/75, pulse ox 95% on room air. Sade ent will be discharged to [facility] once all arrangements are completed. Social work has been notified the patient is discharged today. Discharge diagnoses: 1. Acute on chronic systolic heart failure with pleural effusions and ascites. Echocardiogram reveals EF of 20-25%. 2. Possible non-ST elevated myocardial infarction. 3. Acute kidney injury with chronic kidney disease stage II secondary to cardiorenal syndrome. 4. Metabolic acidosis secondary to acute kidney injury. 5. Possible pneumonia has been ruled out by pulmonary medicine. 6. Difficulty breathing with elevated d-dimer of 2.38. VQ scan ruled out PE. 7. Chronic atrial fibrillation. 8. Transaminitis possibly related to heart failure with underlying liver disease, hepatorenal syndrome. 9. Multiorgan failure secondary to heart failure with ejection fraction of 20- 25%, acute kidney injury, acute liver failure, elevated troponins. 10. Nausea and vomiting possibly related to heart failure, liver congestion, history of Matthews. 11. Metabolic encephalopathy (POA) secondary to hepatorenal syndrome. 12. Obstructive sleep apnea on CPAP. 13. Hypothyroidism. 14. Urinary retention. 15. COVID-19 infection not present. 16. Dyslipidemia. 17. Borderline diabetes. A1C 6.0. 18. Agitation likely secondary to delirium. Plan: Subacute rehab Impression and plan of care have been directed as dictated by the signing physician. Alee Wang nurse practitioner acting as scribe for signing physician. Patient Condition at Discharge: Good Plan - Discharge Summary Discharge Rx Participant: No New Discharge Prescriptions: New Torsemide [Demadex] 40 mg PO DAILY tab Apixaban [Eliquis] 2.5 mg PO BID tablet Metoprolol Tartrate [Lopressor] 12.5 mg PO BID tab Midodrine [ProAmatine] 5 mg PO AC-TID tab QUEtiapine [SEROquel] 12.5 mg PO BID PRN tab PRN Reason: Agitation Continue Methimazole [Tapazole] 5 mg PO DAILY Pantoprazole [Protonix] 40 mg PO DAILY Sertraline [Zoloft] 50 mg PO DAILY Calcium Carbonate/Vitamin D3 [Calcium 600-Vit D3 400 Tablet] 1 tab PO BID Multivit-Min/Iron/Folic/Lutein [Centrum Silver Women Tablet] 1 tab PO DAILY Discontinued Gemfibrozil [Lopid] 600 mg PO AC-BID Furosemide [Lasix] 20 mg PO DAILY hydrALAZINE HCL 50 mg PO BID Metoprolol Tartrate 25 mg PO BID Gabapentin [Neurontin] 300 mg PO HS Baclofen 10 mg PO BID PRN PRN Reason: BACK PAIN Apixaban [Eliquis] 5 mg PO BID Discharge Medication List Methimazole [Tapazole] 5 mg PO DAILY 10/18/17 [History] Calcium Carbonate/Vitamin D3 [Calcium 600-Vit D3 400 Tablet] 1 tab PO BID 10/24/19 [History] Multivit-Min/Iron/Folic/Lutein [Centrum Silver Women Tablet] 1 tab PO DAILY 10/24/19 [History] Pantoprazole [Protonix] 40 mg PO DAILY 10/24/19 [History] Sertraline [Zoloft] 50 mg PO DAILY 10/24/19 [History] Apixaban [Eliquis] 2.5 mg PO BID tablet 11/02/19 [Rx] Metoprolol Tartrate [Lopressor] 12.5 mg PO BID tab 11/02/19 [Rx] Midodrine [ProAmatine] 5 mg PO AC-TID tab 11/02/19 [Rx] QUEtiapine [SEROquel] 12.5 mg PO BID PRN tab 11/02/19 [Rx] Torsemide [Demadex] 40 mg PO DAILY tab 11/02/19 [Rx] Follow up Appointment(s)/Referral(s): Arvin Nelson MD [Primary Care Provider] - 1 Week (at [facility]) Dwayne Hess DO [STAFF PHYSICIAN] - 1 Week
[2019-11-02] MEDS ORDERED: POTASSIUM CHLORIDE ER 20 MEQ TAB.ER PO SCH (09:00)
--- NOTE | 2019-11-02 09:30 | P.PN ---
Subjective Progress Note Date: 11/02/19 This is a pleasant 74-year-old female with a history of hypertension, obstructive sleep apnea, dyslipidemia, breast cancer, CHF and atrial fibrillation who presented with complaints of nausea and vomiting. Patient remains quite drowsy and is a poor historian. HPI and history were obtained mostly from the chart. Chest x-ray on admission did show pulmonary vascular congestion with a large hiatal hernia. EKG showed atrial fibrillation with left bundle branch block. CT of the abdomen and pelvis showed moderate bilateral pleural effusions with bibasilar pulmonary infiltrates and atelectasis, abdomina l ascites. NT proBNP is elevated at 19,000. She's been on IV Lasix 40 mg by mouth every 8 hours. Labs this morning show significant increase in her BUN and creatinine which yesterday were 27 and 1.29 and this morning were 48 and 2.2. At the time of my examination, patient is resting comfortably in bed. Again she is quite drowsy. She does deny complaints of nausea or vomiting. Has no complaints of shortness of breath. Her only complaint at this time is of feeling tired. 10/27/2019 The patient was seen and examined resting in bed. She is lethargic this morning. Opens eyes to verbal stimuli but does not respond verbally. Echocardiogram showed severely impaired LV systolic function with an ejection fraction of 20-25% with mildly enlarged RV, mild AR with possible bicuspid aortic valve, moderate TR and mild pulmonary hypertension. Labs show further elevation of BUN and creatinine at 67 and 3.28, INR of 2.4 and elevated LFTs with an AST of 3251, ALT 1119 and alkaline phosphatase of 233, ammonia level 44 10/28/2019 Patient was seen and examined this morning. Patient's mental status continues to decline. She is quite lethargic and difficult to arouse. Labs this morning showed a white blood cell count 15,500, INR 2.0, BUN increasing to 85 and creatinine increasing at 3.67. LFTs relatively stable with an AST of 2718, ALT 1246 and alkaline phosphatase of 219. She was seen by GI yesterday who feels elevation of liver enzymes are related to ischemic hepatitis secondary to h ypoperfusion. Patient is being maintained on dobutamine at 2.5 g/kg/min and Lasix drip at 10 mg an hour. Patient is being followed by nephrology who is anticipating the need for dialysis. She remains in atrial fibrillation on the monitor with a controlled ventricular response. Occasional brief episodes of nonsustained ventricular tachycardia. She remains on metoprolol tartrate 12.5 mg by mouth twice a day. 10/29/2019 Patient was seen and examined this morning. Mental status has improved. The patient is awake alert and answering some questions. She underwent placement of a dialysis catheter last night by Dr. Perales. She underwent 2 hour hemodialysis last night and planning for 3 hour ultrafiltration today. At the time of my examination she is currently undergoing hemodialysis. Blood pressure has improved maintaining above 100 mmHg systolic. She is afebrile and maintaining an oxygen saturation of around 96-98% on 2 L nasal cannula. Labs this morning show white blood cell count 13,500, INR 1.5, potassium 2.9, BUN 67, creatinine 2.5, AST 1214, ALT 949, an alkaline phosphatase of 194. 10/30/2019 She was seen and examined this morning. Mental status continues to improve. Patient is awake, alert and answering questions more appropriately compared to yesterday. Vital signs are stable. She continues on Lasix and dobutamine drips. She is afebrile. Labs continued to show improvement with a BUN 45, creatinine 1.51, INR 1.2, AST 559, ALT 703 and alkaline phosphatase of 187. David remains on hold. 10/31/2019 Patient was seen and examined this morning resting comfortably in bed. Mental status continues to improve. Patient is awake, alert and oriented 3 with some mild confusion and forgetfulness noted. Labs continued to show improvement with a BUN of 45 and creatinine 1.32, AST 242, ALT 525 and alkaline phosphatase of 189. Potassium is low at 3.2 and supplementation has been ordered by nephrology. She has been transitioned to oral diuretics by nephrology. Urine putput has increased. 11/01/2019 Patient was seen and examined this morning resting currently in bed, mild dyspnea noted following some exertion with getting cleanup after using the bedpan. Mentation is stable. She is awake, alert and oriented 3 with some mild confusion and forgetfulness noted. BUN and creatinine are stable. Potassium is low and is being replaced by primary. Urine output is stable. 11/02/2019 Patient was seen and examined this morning resting currently in bed. She feels quite a bit better this morning. Not as short of breath. Her mentation is stable. She is awake, alert and oriented 3. BUN and creatinine are relatively stable at 47 and 1.4 to. Potassium is improved at 3.8.. Nephrology continues to follow. Continues to have adequate urine output. Blood pressure remains on the low side at 102/75 and 108/75. She continues on metoprolol tartrate 12.5 mg by mouth twice a day. She also remains on Mododrine 5mg 3 times a day. Objective - Vital Signs Vital signs: Vital Signs Temp 97.9 F 11/01/19 22:07 Pulse 82 11/02/19 05:44 Resp 18 11/02/19 05:44 BP 108/75 11/02/19 05:44 Pulse Ox 96 11/02/19 05:44 Intake & Output 11/01/19 11/02/19 11/02/19 18:59 06:59 18:59 Intake Total 780 Output Total 1056 350 Balance -276 -350 Weight 76.7 kg Intake: Oral 780 Output: Urine 1050 350 Stool 6 Other: Voiding Method Indwelling Catheter # Voids 400 1 # Bowel Movements 2 2 - Exam PHYSICAL EXAMINATION: HEENT: Head is atraumatic, normocephalic. Pupils equal, round. Neck is supple. There is no elevated jugular venous pressure. HEART EXAMINATION: Heart sounds irregularly irregular, S1 and S2 with a systolic murmur CHEST EXAMINATION: Lungs reveal diminished air entry bilateral bases. No chest wall tenderness is noted on palpation or with deep breathing. ABDOMEN: Soft, nontender. Bowel sounds are heard. No organomegaly noted. EXTREMITIES: 2+ peripheral pulses with no evidence of peripheral edema and no calf tenderness noted. NEUROLOGIC patient is more awake, alert, oriented x3 with some mild confusion and forgetfulness noted. - Labs CBC & Chem 7: 11/02/19 06:16 11/02/19 06:16 Labs: Abnormal Lab Results - Last 24 Hours (Table) 11/01/19 11/01/19 11/01/19 Range/Units 06:02 11:56 16:07 WBC 13.9 H (3.8-10.6) k/uL MCHC 30.4 L (31.0-37.0) g/dL Neutrophils # 11.5 H (1.3-7.7) k/uL Lymphocytes # 0.9 L (1.0-4.8) k/uL BUN (7-17) mg/dL Creatinine (0.52-1.04) mg/dL Glucose (74-99) mg/dL POC Glucose (mg/dL) 167 H 128 H (75-99) mg/dL 11/01/19 11/02/19 11/02/19 Range/Units 20:10 06:04 06:16 WBC 14.5 H (3.8-10.6) k/uL MCHC (31.0-37.0) g/dL Neutrophils # 11.8 H (1.3-7.7) k/uL Lymphocytes # (1.0-4.8) k/uL BUN (7-17) mg/dL Creatinine (0.52-1.04) mg/dL Glucose (74-99) mg/dL POC Glucose (mg/dL) 161 H 109 H (75-99) mg/dL 11/02/19 Range/Units 06:16 WBC (3.8-10.6) k/uL MCHC (31.0-37.0) g/dL Neutrophils # (1.3-7.7) k/uL Lymphocytes # (1.0-4.8) k/uL BUN 47 H (7-17) mg/dL Creatinine 1.42 H (0.52-1.04) mg/dL Glucose 116 H (74-99) mg/dL POC Glucose (mg/dL) (75-99) mg/dL Assessment and Plan Assessment: #1 multisystem organ failure with evidence of CHF, EF 20-25%, SHERIDAN on CKD, and acute liver failure, #2 acute on chronic systolic congestive heart failure with severely impaired LV systolic function with EF 20-25% #3 minimally abnormal troponins, not consistent with acute coronary syndrome however underlying ischemia cannot be ruled out at this time #4 persistent atrial fibrillation, INR 2.0, anticoagulation is on hold at this time #5 hypertension #6 hyperlipidemia #7 obstructive sleep apnea #8 abnormal d-dimer with VQ scan showing low end of intermediate probability for PE #9 acute kidney injury on chronic kidney disease, likely secondary to cardiorena l syndrome, being followed by nephrology, improving #10 acute liver failure, improving #11 Hypokalemia, improved with supplementation Plan: From cardiology's perspective, medications were reviewed and we will continue the same. Will work to optimize cardiac medications dependent on blood pressure. Diuretics per nephrology. We'll discuss with nephrology possibility of adding an MONICA inhibitor at some point. Continue to monitor renal function and electrolytes. Continue to follow closely with nephrology. We will provide further recommendations accordingly. [employer] RE[employer] MECHANIC note has been reviewed, I agree with a documented findings and plan of care. Patient was seen and examined.
[2019-11-02 11:35] LABS: Glucose,Whole Blood 139 mg/dL (75-99)
--- NOTE | 2019-11-02 12:24 | P.PN ---
Subjective Progress Note Date: 11/02/19 CHIEF COMPLAINT: Abdominal pain HISTORY OF PRESENT ILLNESS: Patient examined at the bedside with Dr. Valentin. Patient denies abdominal pain. She is tolerating diet without nausea or vomiting. PHYSICAL EXAM: VITAL SIGNS: Reviewed. GENERAL: Well-developed in no acute distress. HEENT: No sclera icterus. Extraocular movements grossly intact. Moist buccal mucosa. Head is atraumatic, normocephalic. ABDOMEN: Soft. Nondistended. Nontender. NEUROLOGIC: Alert and oriented. Cranial nerves II through XII grossly intact. ASSESSMENT: 1. Abdominal pain 2. Elevated liver enzymes PLAN: -Continue diet as tolerated -No intervention recommended from a surgery standpoint. Nurse practitioner note has been reviewed by physician. Signing provider agrees with the documented findings, assessment, and plan of care. Objective - Vital Signs Vital signs: Vital Signs Temp 97.9 F 11/01/19 22:07 Pulse 82 11/02/19 05:44 Resp 18 11/02/19 08:00 BP 108/75 11/02/19 05:44 Pulse Ox 96 11/02/19 05:44 Intake & Output 11/01/19 11/02/19 11/02/19 18:59 06:59 18:59 Intake Total 780 Output Total 1056 350 Balance -276 -350 Weight 76.7 kg Intake: Oral 780 Output: Urine 1050 350 Stool 6 Other: Voiding Method Indwelling Catheter Indwelling Catheter # Voids 400 1 # Bowel Movements 2 2 - Labs CBC & Chem 7: 11/02/19 06:16 11/02/19 06:16 Labs: Abnormal Lab Results - Last 24 Hours (Table) 11/01/19 11/01/19 11/02/19 Range/Units 16:07 20:10 06:04 WBC (3.8-10.6) k/uL Neutrophils # (1.3-7.7) k/uL BUN (7-17) mg/dL Creatinine (0.52-1.04) mg/dL Glucose (74-99) mg/dL POC Glucose (mg/dL) 128 H 161 H 109 H (75-99) mg/dL 11/02/19 11/02/19 11/02/19 Range/Units 06:16 06:16 11:33 WBC 14.5 H (3.8-10.6) k/uL Neutrophils # 11.8 H (1.3-7.7) k/uL BUN 47 H (7-17) mg/dL Creatinine 1.42 H (0.52-1.04) mg/dL Glucose 116 H (74-99) mg/dL POC Glucose (mg/dL) 139 H (75-99) mg/dL
[2019-11-02] MEDS: METHIMAZOLE 5 MG TAB PO SCH (13:32)
[2019-11-02 14:34] VITALS: BMI 29.9
[2019-11-02 15:24] VITALS: BP 111/75; PULSE 84
--- NOTE | 2019-11-02 16:48 | PN ---
PROGRESS NOTE Patient is seen for followup for acute kidney injury. Patient's renal function is fairly stable with creatinine staying at 1.2-1.4 mg/dL. Previous creatinine; however, in June of 2018 was as low as 0.7 mg/dL. Currently, she is maintained on oral diuretics in the form of Demadex 40 mg p.o. daily. Her blood pressure has been on the lower side and she is on midodrine 5 mg t.i.d. Cardiology is considering adding MONICA inhibitors given her low ejection fraction. Systolic blood pressure currently staying on the lower side with systolic around 102-108 mmHg. PHYSICAL EXAMINATION: Today blood pressure is 108/75, heart rate 82 per minute, patient is afebrile. She is awake, comfortable. She is not in any acute distress. Abdomen is soft, nontender. Examination of lower extremities shows no significant edema. Lungs are clear. Heart sounds are heard. CAR SHIFTER exam grossly intact. LABS: Show sodium 139, potassium 3.8, chloride 105, CO2 is 27, BUN 47, creatinine 1.42, hemoglobin 12.9 g/dL. ASSESSMENT: 1. Acute kidney injury, mainly cardiorenal, renal function fairly stable. Continue with the current dose of Demadex. Previous creatinine was as low as 0.7 in June of 2018. 2. Acute on chronic systolic congestive heart failure. 3. Cardiomyopathy, ejection fraction 20%-25%. 4. Volume overload, now improved. 5. Hypokalemia secondary to diuretics being replaced. 6. Hypotension mostly associated with poor cardiac status, maintained on midodrine which I will increase so patient has room to add MONICA inhibitors. PLAN: Increase midodrine to 10 mg t.i.d. We can add low-dose MONICA inhibitors as long as renal function remains stable. MMODL / IJN: [id number] /
[2019-11-02] MEDS ORDERED: MIDODRINE 5 MG TAB PO SCH (17:30)
--- NOTE | 2019-11-03 00:55 | PCN ---
PROCEDURE NOTE PREOPERATIVE DIAGNOSIS: Acute on chronic renal failure. PROCEDURE: Removal of dialysis catheter right femoral approach. DESCRIPTION OF PROCEDURE: The patient was seen in the room. Right groin was prepped and draped in the usual sterile manner. Stitches were removed. Then catheter was removed. Pressure was held. Patient tolerated the procedure well. Pressure dressing applied. MMODL / IJN: [id number] /
== END 2019-11-02 16:50 | DRG 280 ==
LOC: EC 20:23 → 3SCARD 22:12
PROVIDERS: ADMIT Internal Medicine Geriatric Medicine; ATTEND Internal Medicine Geriatric Medicine
PROC: 06HY33Z Insertion of Infusion Device into Lower Vein, Percutaneous Approach (ICD-10-PCS; principal; 2019-10-28)
PROC: 06PYX3Z Removal of Infusion Device from Lower Vein, External Approach (ICD-10-PCS; 2019-11-02)
DX: I13.0 Hypertensive heart and chronic kidney disease with heart failure and stage 1 through stage 4 chronic kidney disease, or unspecified chronic kidney disease (principal); I50.23 Acute on chronic systolic (congestive) heart failure; I21.4 Non-ST elevation (NSTEMI) myocardial infarction; N17.0 Acute kidney failure with tubular necrosis; K72.00 Acute and subacute hepatic failure without coma; G93.41 Metabolic encephalopathy; K76.7 Hepatorenal syndrome; J44.1 Chronic obstructive pulmonary disease with (acute) exacerbation; E87.2 Acidosis; I47.2 Ventricular tachycardia; K55.9 Vascular disorder of intestine, unspecified; I48.19 Other persistent atrial fibrillation; F05 Delirium due to known physiological condition; D68.9 Coagulation defect, unspecified; Z20.828 Contact with and (suspected) exposure to other viral communicable diseases; M19.90 Unspecified osteoarthritis, unspecified site; G47.33 Obstructive sleep apnea (adult) (pediatric); E87.6 Hypokalemia; F03.90 Unspecified dementia, unspecified severity, without behavioral disturbance, psychotic disturbance, mood disturbance, and anxiety; I08.1 Rheumatic disorders of both mitral and tricuspid valves; I27.20 Pulmonary hypertension, unspecified; R33.9 Retention of urine, unspecified; I44.7 Left bundle-branch block, unspecified; T50.2X5A Adverse effect of carbonic-anhydrase inhibitors, benzothiadiazides and other diuretics, initial encounter; E05.90 Thyrotoxicosis, unspecified without thyrotoxic crisis or storm; E78.5 Hyperlipidemia, unspecified; F41.9 Anxiety disorder, unspecified; E86.0 Dehydration; R19.7 Diarrhea, unspecified; E03.9 Hypothyroidism, unspecified; T50.1X5A Adverse effect of loop [high-ceiling] diuretics, initial encounter; D64.9 Anemia, unspecified; E11.22 Type 2 diabetes mellitus with diabetic chronic kidney disease; E83.42 Hypomagnesemia; I42.9 Cardiomyopathy, unspecified; K44.9 Diaphragmatic hernia without obstruction or gangrene; G25.3 Myoclonus; N39.3 Stress incontinence (female) (male); T45.7X5A Adverse effect of anticoagulant antagonists, vitamin K and other coagulants, initial encounter; N18.2 Chronic kidney disease, stage 2 (mild); K75.81 Nonalcoholic steatohepatitis (NASH); Z79.899 Other long term (current) drug therapy; Z82.3 Family history of stroke; Z79.01 Long term (current) use of anticoagulants; Z88.1 Allergy status to other antibiotic agents; Z91.040 Latex allergy status; Z90.49 Acquired absence of other specified parts of digestive tract; Z90.89 Acquired absence of other organs; Z82.49 Family history of ischemic heart disease and other diseases of the circulatory system; Z98.890 Other specified postprocedural states; Z90.12 Acquired absence of left breast and nipple; Z87.891 Personal history of nicotine dependence; Z85.3 Personal history of malignant neoplasm of breast; Z86.73 Personal history of transient ischemic attack (TIA), and cerebral infarction without residual deficits; Z87.442 Personal history of urinary calculi; Z90.11 Acquired absence of right breast and nipple; Z90.710 Acquired absence of both cervix and uterus
CPT/HCPCS: 36415; 70450; 71045; 71046; 74176; 76705; 78582; 80048; 80053; 80074; 81001; 82009; 82140; 83036; 83605; 83615; 83690; 83735; 83880; 83930; 84100; 84484; 85025; 85027; 85379; 85610; 85730; 87040; 87086; 90935; 93005; 93306; 94644; 96365; 96375; 99285